=== PATIENT | female | born 1970 | race Caucasian/White ===

== ENCOUNTER 2019-08-03 13:57 | Outpatient (RCR) | payer OTHER, SELFPAY | END 2019-08-03 23:59 | disposition home or self-care (01) | LOC: ANHAUDIO 13:57 | PROVIDERS: PCP Family Medicine; Visit Provider Family Medicine | DX: Z46.1 Encounter for fitting and adjustment of hearing aid (principal) | CPT/HCPCS: 99199 ==

== ENCOUNTER 2019-08-23 11:22 | Outpatient (CLI) | payer OTHER, SELFPAY ==
[2019-08-23 11:44] LABS: Basophils Percent Auto 0.3 % (0.2-1.2); Eosinophils Percent Auto 0.1 % (0-4.4); Hematocrit 44.6 % (37.0-47.0); Hemoglobin 14.6 g/dL (12.0-15.0); Immature Granulocyte Absolute 0.04 K/mm3 (0.00-0.031); Immature Granulocyte Percent A 0.4 % (0-0.5); Lymphocytes Absolute Auto 0.69 K/mm3 (0.9-3.2); Lymphocytes Percent Auto 6.4 % (18.3-44.2); Mean Corpuscular HGB Conc 32.7 g/dl (32-36); Mean Corpuscular Hemoglobin 30.5 pg (26-34); Mean Corpuscular Volume 93.3 fl (80-100); Mean Platelet Volume 9.1 fl (7.4-10.4); Monocytes Absolute Auto 0.7 K/mm3 (0.1-0.6); Monocytes Percent Auto 6.9 % (2.6-8.5); Neutrophils Absolute Auto 9.3 K/mm3 (1.3-6.7); Neutrophils Percent Auto 85.9 % (45.5-73.1); Platelet Count Result 230 k/mm3 (150-375); Red Blood Count 4.78 M/mm3 (4.2-5.4); Red Cell Distribution Width 14.8 % (11.5-14.5); White Blood Count 10.8 K/mm3 (4.5-10.0)
== END 2019-08-23 11:23 | disposition home or self-care (01) ==
LOC: ANHLAB 11:24
PROVIDERS: PCP Family Medicine; Visit Provider Internal Medicine Hematology & Oncology
DX: C34.91 Malignant neoplasm of unspecified part of right bronchus or lung (principal)
CPT/HCPCS: 36415; 85025

== ENCOUNTER 2019-09-04 07:53 | Outpatient (CLI) | payer OTHER, SELFPAY ==
--- NOTE | ~2019-09-04 | PE_ITS ---
EXAMINATION: PET skull to mid thigh DATE: 09/04/2019 12:04 INDICATION: Lung cancer TECHNIQUE: 8.3 mCi of 18-fluorodeoxyglucose (18-FDG) was administered i.v. Low dose computed tomograp hy (CT) images were acquired from the base of the brain to the proximal thighs for attenuation correc tion and anatomic localization. Positron emission tomography (PET) images were acquired after injecti on. Images including fused PET/CT images were reconstructed in axial, coronal, and sagittal planes. A utomatic exposure control is employed as a dose reduction technique. COMPARISON: Pet/CT dated 05/31/2019 FINDINGS: Head/neck: There is increased activity in the palatine tonsils without CT correlate, likely physiologic. There i s new left supraclavicular soft tissue with hypermetabolic activity, out of with metastatic disease. Chest: There is emphysema. There is persistent consolidation in the right upper lobe paramediastinal locatio n with maximum SUV of 5.3 compared with 6.1 on prior examination. There is stable anterior mediastina l and precarinal lymphadenopathy with maximum SUV of 6.5 and 4.2 respectively. Moderate pericardial e ffusion. No significant change to mixed airspace and groundglass opacifications. Segment right lower lobe without increased activity, likely radiation fibrosis. There is atherosclerosis. Abdomen/pelvis/proximal thighs: There is intrahepatic gas peripherally in the left hepatic lobe, suspicious for portal venous gas. Th e gallbladder is identified. There is a new focus of hypermetabolic activity in the liver adjacent to the gallbladder fossa with maximum SUV of 4.9. There are calcified granulomas of the spleen. The wallace creas adrenal glands and left kidney are unremarkable. There is atrophy of the right kidney. There is a small nonobstructing right renal stone. There is atherosclerosis and ectasia of the infrarenal abd ominal aorta measuring 2.8 cm maximum AP dimension. No bowel obstruction. Bones/Soft tissues: There is new mild FDG uptake in the left sacrum with poorly circumscribed sclerosis, compatible with metastatic disease. IMPRESSION: 1. New focal soft tissue left supraclavicular area with hypermetabolic activity, maximum SUV is 3.4, suspicious for metastatic disease. There is new sclerosis of the left sacrum with increased FDG uptak e, also consistent with metastatic disease. New focus of FDG uptake in the liver adjacent to the falc iform ligament without definitive associated mass. If the patient has had recent instrumentation/proc edure, this could represent inflammatory change, although developing metastatic disease is not exclud ed. 2: New area of peripheral gas in the left hepatic lobe. If there is history of recent instrumentation , this could represent biliary gas, although this is peripheral to expected location of pneumobilia. Portal venous gas should be considered. This finding is nonspecific, although can be associated with ischemic bowel. 3: Stable right upper lobe soft tissue with increased activity which may represent radiation pneumoni tis or metastatic disease. 4: Stable mediastinal soft tissue with increased activity, consistent with metastatic disease and/or radiation therapy sequela. Dr. Milian discussed with Dr. Odell Swanson MD at 09/04/2019 12:58 CDT. Reviewed, dictated and finalized at location A. IMPRESSION: 1. New focal soft tissue left supraclavicular area with hypermetabolic activity , maximum SUV is 3.4, suspicious for metastatic disease. There is new sclerosis of the left sacrum with increased FDG uptake, also consistent with metastatic disease. New focus of FDG uptake in the liver adjacent to the falciform ligamen t without definitive associated mass. If the patient has had recent i
[2019-09-04 08:33] LABS: Glucose Point of Care 112 (65-105)
== END 2019-09-04 07:54 | disposition home or self-care (01) ==
LOC: ANHIMG 07:58
PROVIDERS: PCP Family Medicine; Visit Provider Radiology Radiation Oncology
DX: C34.11 Malignant neoplasm of upper lobe, right bronchus or lung (principal); R91.8 Other nonspecific abnormal finding of lung field
CPT/HCPCS: 78815; A9552

== ENCOUNTER 2019-09-13 10:11 | Outpatient (CLI) | payer OTHER, SELFPAY ==
--- NOTE | ~2019-09-13 | US_ITS ---
EXAMINATION: US biopsy lymph node DATE: 09/13/2019 11:15 INDICATION: Left supraclavicular lymphadenopathy. TECHNIQUE: The procedure including the risks, benefits, and alternatives was discussed with the patie nt. Risks discussed included bleeding and infection. The patient understood the risks and agreed to p roceed. The skin overlying the left supraclavicular region was prepped and draped in usual sterile fa shion. Anesthetic was administered with 1% lidocaine subcutaneously. An 18 gauge core biopsy needle was then used to obtain 3 core biopsy specimens under continuous sonographic guidance. The entry sit e was cleaned and dressed. There were no immediate complications. FINDINGS: Ultrasound images demonstrate the needle in a 10 x 9 x 8 mm left supraclavicular lymph node that demonstrated increased activity on the recent PET/CT.. IMPRESSION: 1. Ultrasound-guided core needle biopsy of a left supraclavicular lymph node. Reviewed, dictated and finalized at location A.
== END 2019-09-13 10:12 | disposition home or self-care (01) ==
LOC: ANHIMG 10:15
PROVIDERS: PCP Family Medicine; Visit Provider Radiology Radiation Oncology
DX: C34.11 Malignant neoplasm of upper lobe, right bronchus or lung (principal)
CPT/HCPCS: 38505; 76942; 88305; 88313; 88342

== ENCOUNTER 2019-10-05 01:02 | Day surgery (SDC) | payer OTHER, SELFPAY ==
[2019-10-03 15:56] VITALS: BMI 18.1
--- NOTE | ~2019-10-05 | XR_ITS ---
XR Abdomen PIC DATE: 10/05/2019 13:26 INDICATION: Port-A-Cath insertion. A femoral approach TECHNIQUE: 3 portable AP views of abdomen and pelvis COMPARISON: None FINDINGS: A Port-A-Cath apparatus overlies the right lower quadrant, superimposing the right iliac ericka ne on these frontal views. The catheter overlies the right common femoral, external and common iliac veins, inferior vena cava, terminating over the inferior vena cava at the T11 level. Abdominal aortic and iliac arterial calcifications are noted. IMPRESSION: Right femoral vein Port-A-Cath in inferior vena cava Reviewed, dictated and finalized at [facility]. Reviewed, dictated and finalized at location A.
--- NOTE | ~2019-10-05 | XR_ITS ---
EXAMINATION: XR fl guide central line place DATE: 10/05/2019 13:46 INDICATION: Femoral port catheter placement TECHNIQUE: Single fluoroscopic spot image of the right hemipelvis was obtained during procedure perfo rmed by Dr. Hein. Radiologist was not present for the imaging or procedure. The amount of fluorosc opy time used during this procedure was 0.3 minutes. COMPARISON: None. FINDINGS: The reservoir for a subtle venous port catheter projects over the right innominate bone. Po rtions of the catheter including the distal tip are collimated beyond the [id number]. A segment of the catheter can be seen extending cephalad along the course of the right external and common iliac veins. IMPRESSION: 1. Fluoroscopy utilized during right femoral vein central venous port catheter placement. Reviewed, dictated and finalized at location A.
[2019-10-05 10:00] VITALS: BP 134/103; PULSE 110; RESP 20; TEMP 37.2; O2SAT 98
[2019-10-05] MEDS: LACTATED RINGERS 1,000 ML 30 ML IV CONT (10:18)
[2019-10-05 10:36] LABS: Partial Thromboplastin Time 28.8 SECONDS (22.3-36.8); Prothrombin Time 12.6 Seconds (11.1-14.7)
--- NOTE | 2019-10-05 10:45 | PM.HPGS ---
History of Present Illness History of Present Illness Consent: Risks, benefits, and alternatives of Placement of Port-A-Cath have been discussed and questions answered. Patient agrees to proceed with procedure. Chief complaint: Lung Ca Narrative: Earlene Velez is a 49 year old female, who in the past has had non-small cell lung cancer (2015). She recently had a left supraclavicular lymph node biopsy done in early September 2019 showing recurrent tumor. Patient was initially diagnosed with stage IIIA non-small cell lung carcinoma with mediastinal and hilar lymphadenopathy, PD L1 mutation negative, and ALK gene rearrangements negative. First diagnosed October of 2015. Previous treatment includes concurrent chemo & radiation with Taxol, carboplatin in December of 2015. She also receive some stereotactic radiation to the anterior mediastinum in January of 2017. PET scan done on September 03 showed soft tissue mass in the left supraclavicular area as well as sclerosis of an area in the left sacrum with increased uptake consistent with possible metastatic disease in the bone there. Because of this she is planning to proceed with further chemotherapy with . She therefore presents today for placement of a Port-A-Cath. We will plan to place on the right side. Review of Systems Constitutional: Constitutional: Reports no additional constitutional complaints, Reports fatigue and Denies malaise Eyes: Eyes: Denies change in vision and Denies loss of vision ENT: Reports Normal hearing present, Denies change in voice, Denies dizziness, Denies hoarseness and Denies sore throat Cardiovascular: Cardiovascular: Denies chest pain, Denies leg edema and Denies dyspnea Respiratory: Respiratory: Denies cough, Denies dyspnea and Denies wheezing Gastrointestinal: Gastrointestinal: Denies hematochezia, Denies change in bowel habits and Denies heartburn Genitourinary: Genitourinary: Denies urinary frequency and Denies urinary incontinence Neurologic: Reports Normal hearing present, Denies confusion, Denies dizziness, Denies loss of vision, Denies memory loss and Denies seizure-like activity Psychiatric: Psychiatric: Denies confusion, Denies depression and Denies memory loss Endocrine: Endocrine: Denies cold intolerance and Reports fatigue Hematologic/Lymphatic: Hematologic/Lymphatic: Denies easy bleeding and Denies easy bruising Allergic/Immunologic: Allergic/Immunologic: Denies wheezing PMFSH Past Medical History Medical History (Updated 10/05/19 @ 11:01 by El Temple MD) COPD (chronic obstructive pulmonary disease) CVA (cerebral vascular accident) no residual symptoms HTN (hypertension), benign (Unknown) Metastatic lung cancer (metastasis from lung to other site) (~09/2019) Meds Home Medications and Allergies Home Medications Medication Instructions Recorded Confirmed Type albuterol sulfate 1 - 2 inh INHALATION PRN PRN 06/05/19 10/05/19 History alprazolam 0.25 mg PO BID 06/05/19 10/05/19 History amlodipine 5 mg PO DAILY 06/05/19 10/05/19 History cholecalciferol (vitamin D3) 2,000 unit PO DAILY 06/05/19 10/05/19 History multivitamin 1 cap PO DAILY 06/05/19 10/05/19 History oxycodone 5 mg PO Q6H PRN 06/05/19 10/05/19 History esomeprazole magnesium [Nexium 20 mg PO DAILY 10/03/19 10/05/19 History 24HR] fluoxetine 10 mg PO DAILY 10/03/19 10/05/19 History temazepam 7.5 mg PO HS 10/03/19 10/05/19 History umeclidinium [Incruse Ellipta] 1 inh INHALATION DAILY 10/03/19 10/05/19 History Allergies Allergy/AdvReac Type Severity Reaction Status Date / Time Penicillins Allergy Unknown RASH Verified 10/05/19 10:31 Vital Signs Vital Signs - 24 hr 10/05/19 10:00 Temperature 37.2 C Pulse Rate 110 H Respiratory Rate 20 Blood Pressure 134/103 H Pulse Oximetry 98 Exam Const: General: cooperative, healthy appearing, no acute distress, well developed and alert; No confusion Nutritional Appearance: well nourished Orientation/co
--- NOTE | 2019-10-05 11:01 | WPDANESEPPF ---
Anes - Initial Pre Proc Eval Procedure: Operation Date: 10/05/19 11:30 Proposed Procedures p Insertion Lloyd Cath - Neno Hein MD Date/Time: 10/05/19 11:01 Surgeon: Neno Hein MD Pre Op Diagnosis: Lung Ca Patient Data Age: 49 Gender: F Height: 5 ft 6 in Weight: 50.5 kg Last Vital Signs Temp 98.9 F 10/05/19 10:00 Pulse 110 H 10/05/19 10:00 Resp 20 10/05/19 10:00 BP 134/103 H 10/05/19 10:00 Pulse Ox 98 10/05/19 10:00 Allergies Allergy/AdvReac Type Severity Reaction Status Date / Time Penicillins Allergy Unknown RASH Verified 10/05/19 10:31 Home Medications Medication Instructions Recorded Confirmed Type albuterol sulfate 1 - 2 inh INHALATION PRN PRN 06/05/19 10/05/19 History alprazolam 0.25 mg PO BID 06/05/19 10/05/19 History amlodipine 5 mg PO DAILY 06/05/19 10/05/19 History cholecalciferol (vitamin D3) 2,000 unit PO DAILY 06/05/19 10/05/19 History multivitamin 1 cap PO DAILY 06/05/19 10/05/19 History oxycodone 5 mg PO Q6H PRN 06/05/19 10/05/19 History esomeprazole magnesium [Nexium 20 mg PO DAILY 10/03/19 10/05/19 History 24HR] fluoxetine 10 mg PO DAILY 10/03/19 10/05/19 History temazepam 7.5 mg PO HS 10/03/19 10/05/19 History umeclidinium [Incruse Ellipta] 1 inh INHALATION DAILY 10/03/19 10/05/19 History Laboratory Tests 10/05/19 10:06 PT 12.6 Seconds Seconds (11.1-14.7) INR 1.0 APTT 28.8 SECONDS SECONDS (22.3-36.8) Patient hx anesthesia problems: none Family hx anesthesia problems: none PMFSH Past Medical History Medical History (Updated 10/05/19 @ 11:01 by El Temple MD) COPD (chronic obstructive pulmonary disease) CVA (cerebral vascular accident) no residual symptoms HTN (hypertension), benign (Unknown) Metastatic lung cancer (metastasis from lung to other site) (~09/2019) Anes - Eval Final PreProcedure Day of Procedure 10/05/19 11:01 Patient weight: normal Heart: regular rate and rhythm Lungs: clear to auscultation Airway: Mallampati scale class III Neurological: alert and oriented Last oral intake: >/= 8 hours ASA classification: III Emergent: no Anesthetic plan: proceed Anesthesia type and monitoring: general GIVS and standard monitoring Informed Consent: The patient's anesthetic plan and its attendant risks and benefits were discussed with the patient/family/POA. Questions were solicited and answers provided to the satisfaction of the patient/family/POA.
[2019-10-05] MEDS: CLINDAMYCIN 900 MG/NS 50 ML 900 MG/50 ML PIGGYBACK 50 MG IVPB (12:10)
[2019-10-05] MEDS: BUPIVACAINE/EPINEPHRINE 0.5% 30 ML VIAL INFILTRATE (12:59)
[2019-10-05] MEDS: HEPARIN SODIUM 5,000 UNITS/ML VIAL 5000 UNITS IRRIGATION (13:00)
[2019-10-05 13:28] VITALS: BP 126/82; PULSE 87; RESP 16; TEMP 35.8; O2SAT 100
--- NOTE | 2019-10-05 13:34 | PM.PROC ---
Procedure Note - Detailed Date of procedure: 10/05/19 Pre-op diagnosis: Lung Ca Procedure performed: placement of Port-A-Cath ( in right femoral vein). Description of procedure: Patient was seen and marked in the pre-op area prior to coming to the OR. Patient was brought to the operating room. She was placed supine on the operating table and general IV sedation was induced. The nurse inventory assistant provided oxygen and IV sedation. Patient's lower abdomen right groin and upper right thigh were prepped and draped while in the supine position. Following this the appropriate time-out was completed confirming procedure and patient. Placement of Port-A-Cath in the right groin. We confirmed that all the needed equipment was present in the room. Following this the ultrasound probe was draped into the field and using the probe we carefully identified the femoral artery and vein on the right groin. I marked the skin directly over the Rt. femoral vein. Following this, using the continuous ultrasound guidance, a 22 gauge seeker needle and then the Cook needle was placed through the skin into this vein. I then was able to draw back good dark blood. Once this was completed a guidewire using a J-tip was advanced through the needle and then the needle and the guidewire cover were withdrawn. C-arm fluoroscopy was used to confirm that the guidewire was nicely in the venous system. Once this was confirmed with the C - arm I preceded on by making the pocket for the port on the patient's anterior right lower abdomen approximately 2 centimeters just medial to the anterior superior iliac spine on the right . Local anesthetic was infiltrated into the skin where there was a transverse incision marked out. Incision was made and we made a pocket superior to the incision with just a little dissection inferior. The Smart port was tried in the pocket and seemed to fit well. Fairly large subcutaneous vein was identified and a small rent was made as I made the pocket. This therefore was divided and sutured off on each side with a 3 0 Vicryl suture. Following this the catheter which had been placed on a tunneling device was tunneled from the port site on the anterior right lower abdomen to the right groin area where a small incision had been made with an #11 blade knife. Then the catheter was pulled through so that we would have 35 centimeters to put into the central venous system once the dilation took place. Following this we placed the dilator and sheath over the guidewire in the right femoral vein and carefully dilated the tract into the central venous system (inferior vena cava). The guidewire and dilator were then removed, carefully covering the end of the sheath to prevent air embolus. The end of the catheter at the tip was checked was then inserted into the sheath and into the groin. Catheter was advanced 35 cm at the skin level and I then carefully pulled the 2 arms of the tear-away sheath away as the medical assistant ob gyn held the catheter in position with a DeBakey forceps. Following this we checked the position of the catheter with C-arm fluoroscopy confirming that the tip seemed to be in the inferior vena cava high in the upper abdomen. I felt that it was in good position and so the rest of the catheter was left pulled down toward the feet into the port site. Good dark blood was able to be aspirated from the catheter. We then measured to the appropriate position to cut the catheter to attach it to the port stem. Then the connector sealing device for the catheter port was placed onto the catheter and then the catheter cut to the appropriate length and inserted onto the stem of the port. Then the connector was advanced onto the stem over the catheter sealing it to the port. A single 3- 0 Prolene suture was also used during this to suture the connector to the port and to the underlying fascia and musculature. Following this at one other site the port was sutured to the underlying fascia and
[2019-10-05 13:53] VITALS: BP 121/96; PULSE 88; RESP 20; O2SAT 100
--- NOTE | 2019-10-05 14:03 | SUR.PHASEI ---
1345- PT AWAKE AND STATED THAT LT EYE WAS BURNING AND DRY. ASKED PT NOT TO RUB EYE. 1400- PT UP TO RECLINER AND SHE PLACED SALINE DROPS IN BOTH EYES. PT STATED SHE HAS DRY EYES. LT EYE RED, BUT PT CAN KEEP OPEN AND SHE STATED THAT SHE HAS A HX OF DRY EYES.
--- NOTE | 2019-10-05 14:12 | SUR.PHASEI ---
1410- PT STATED LT EYE WAS HURTING AND DRY. PT WILL NOT OPEN. SPOKE WITH DR. MARSHALL AND HE ORDERED EYE DROPS. PT MOTHER UPDATED.
[2019-10-05] MEDS: PROPARACAINE HCL 0.5% 15 ML OPHTH SOLN 1 DROP EACH EYE (15:17)
== END 2019-10-05 14:28 | disposition home or self-care (01) ==
PROVIDERS: PCP Family Medicine; Visit Provider Surgery
PROC: (CPT 36561; principal; 2019-10-05 11:30)
DX: C34.92 Malignant neoplasm of unspecified part of left bronchus or lung (principal); I10 Essential (primary) hypertension; J44.9 Chronic obstructive pulmonary disease, unspecified; Z86.73 Personal history of transient ischemic attack (TIA), and cerebral infarction without residual deficits
CPT/HCPCS: 36561; 36415; 77001; 85610; 85730; A9270; C1788; J1100; J1644; J2250; J2370; J2405; J2704; J3010; J7030; J7120

== ENCOUNTER 2020-01-04 08:53 | Outpatient (CLI) | payer OTHER, SELFPAY ==
--- NOTE | ~2020-01-04 | CT_ITS ---
EXAMINATION: CT chest abdomen pelvis w con DATE: 01/04/2020 09:48 INDICATION: Adenocarcinoma of the lung TECHNIQUE: Transaxial computed tomographic images of the chest, abdomen, and pelvis were obtained aft er the administration of 100 cc of Omnipaque 350 intravenous contrast. The dose-length product (DLP) was 299.03 mGy-cm. Automated exposure control and iterative reconstruction technique were employed. COMPARISON: 08/25/2019, 05/31/2019, 05/21/2019 FINDINGS: CHEST CT: The previously biopsied left supraclavicular lymph node demonstrating metastatic lung adenocarcinoma is unchanged in size. There is moderate emphysema. Scarring and paramediastinal fibrosis in the right upper lobe are stable. There appears to be slight decrease in precarinal soft tissue density. A prev ascular lymph node remains normal in short axis diameter but has decreased in size. The heart size is normal. A moderate-sized pericardial effusion is stable. There is no pleural effusion or pneumothora x. 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 ABDOMEN/PELVIS CT: A Port-A-Cath of the right groin ends with its tip in the intrahepatic portion of the inferior vena c mikaela. Transient hepatic attenuation difference is noted in the left hepatic lobe. There is a 5 mm hypo attenuating lesion of the right hepatic lobe not definitely seen on the comparison examinations (imag e 107). Punctate calcifications in an otherwise normal spleen likely represent healed granulomatous d isease. The pancreas, gallbladder, and adrenal glands are normal. There is mild atrophy of the right kidney compared to the left. No pathologically enlarged abdominal or pelvic lymph nodes are identifie d. There is no free intraperitoneal gas or evidence of bowel obstruction. IMPRESSION: 1. Apparent slight decrease in size of mediastinal lymphadenopathy. 2. 5 mm lesion of the right hepatic lobe not definitely identified on comparison examinations. Attent ion on follow-up is recommended. Reviewed, dictated and finalized at location A. IMPRESSION: 1. Apparent slight decrease in size of mediastinal lymphadenopathy. 2. 5 mm lesion of the right hepatic lobe not definitely identified on compariso n examinations. Attention on follow-up is recommended.
== END 2020-01-04 08:54 | disposition home or self-care (01) ==
LOC: ANHIMG 08:56
PROVIDERS: PCP Family Medicine; Visit Provider Internal Medicine Hematology & Oncology
DX: C34.90 Malignant neoplasm of unspecified part of unspecified bronchus or lung (principal)
CPT/HCPCS: 71260; 74177; Q9967

== ENCOUNTER 2020-01-10 11:46 | Outpatient (CLI) | payer OTHER, SELFPAY ==
[2020-01-10 12:08] LABS: Basophils Percent Auto 0.4 % (0.2-1.2); Hematocrit 31.6 % (37.0-47.0); Hemoglobin 10.2 g/dL (12.0-15.0); Immature Granulocyte Absolute 0.01 K/mm3 (0.00-0.031); Immature Granulocyte Percent A 0.4 % (0-0.5); Lymphocytes Absolute Auto 0.65 K/mm3 (0.9-3.2); Lymphocytes Percent Auto 22.9 % (18.3-44.2); Mean Corpuscular HGB Conc 32.3 g/dl (32-36); Mean Corpuscular Hemoglobin 33.4 pg (26-34); Mean Corpuscular Volume 103.6 fl (80-100); Mean Platelet Volume 9.7 fl (7.4-10.4); Monocytes Absolute Auto 0.4 K/mm3 (0.1-0.6); Monocytes Percent Auto 14.1 % (2.6-8.5); Neutrophils Absolute Auto 1.8 K/mm3 (1.3-6.7); Neutrophils Percent Auto 62.2 % (45.5-73.1); Platelet Count Result 132 k/mm3 (150-375); Red Blood Count 3.05 M/mm3 (4.2-5.4); Red Cell Distribution Width 23.4 % (11.5-14.5); White Blood Count 2.8 K/mm3 (4.5-10.0)
[2020-01-10 12:33] LABS: Blood Urea Nitrogen 13 mg/dL (8-26); Carbon Dioxide 26 mmol/L (22-30); Chloride 100 mmol/L (98-109); Estimated Glomerular Filt Rate 40; Glucose 91 mg/dL (70-105); Sodium 140 mmol/L (138-146)
[2020-01-10 16:36] LABS: Alanine Aminotransferase 73 U/L (4-35); Albumin Level 4.4 g/dL (3.5-5.1); Alkaline Phosphatase 94 U/L (38-126); Anion Gap 14.3 mmol/L (7-16); Aspartate Amino Transferase 56 U/L (14-36); Bilirubin,Total 0.5 mg/dL (0.2-1.3); Blood Urea Nitrogen 15 mg/dL (7-17); Calcium 9.7 mg/dL (8.4-10.2); Carbon Dioxide 29 mmol/L (22-30); Chloride 100 mmol/L (98-107); Estimated Glomerular Filt Rate 48; Glucose 92 mg/dL (65-105); Potassium 4.3 mmol/L (3.4-5.0); Sodium 139 mmol/L (137-145)
== END 2020-01-10 11:47 | disposition home or self-care (01) ==
PROVIDERS: PCP Family Medicine; Visit Provider Internal Medicine Hematology & Oncology
DX: C34.90 Malignant neoplasm of unspecified part of unspecified bronchus or lung (principal)
CPT/HCPCS: 36415; 80048; 80053; 84443; 85025

== ENCOUNTER 2020-03-31 10:13 | Outpatient (CLI) | payer OTHER, SELFPAY ==
--- NOTE | ~2020-03-31 | MM_ITS ---
EXAMINATION: MM screening jama BI w shyam HISTORY: Screening mammogram TECHNIQUE: Craniocaudal and mediolateral oblique 3-D tomosynthesis images were obtained and synthetic 2-D images were generated. CAD analysis was submitted and interpreted. COMPARISON: 03/30/2019, 03/23/2018 bilateral digital screening mammogram examinations BREAST PARENCHYMAL COMPOSITION: There are scattered areas of fibroglandular density. FINDINGS: There is no evidence of suspicious mass, calcification, or architectural distortion to sugg est malignancy in either breast. There has been no suspicious interval change. IMPRESSION: 1. No mammographic evidence of malignancy. 2. Recommend routine screening mammography in one year. BI-RADS Category 1: Negative Reviewed, dictated and finalized at location A.
== END 2020-03-31 10:14 | disposition home or self-care (01) ==
LOC: ANHIMG 10:15
PROVIDERS: PCP Family Medicine; Visit Provider Internal Medicine Hematology & Oncology
DX: Z12.31 Encounter for screening mammogram for malignant neoplasm of breast (principal)
CPT/HCPCS: 77063; 77067

== ENCOUNTER 2020-04-10 12:24 | Outpatient (CLI) | payer OTHER, SELFPAY ==
--- NOTE | ~2020-04-10 | CT_ITS ---
EXAMINATION: CT chest abdomen pelvis w con DATE: 04/10/2020 13:44 INDICATION: Restaging of adenocarcinoma of the lung TECHNIQUE: Computed tomography (CT) of the chest, abdomen, and pelvis was performed with 100 cc Omnip aque 350 intravenous contrast. Automated exposure control and iterative reconstruction technique were employed. Exam dose: 288.17 mGy-cm total exam DLP. COMPARISON: 12/31/2019 CT chest abdomen pelvis FINDINGS: CHEST CT: Normal size and homogeneous enhancement of thyroid gland. No interval hilar or mediastinal mass lesion or lymphadenopathy. Normal heart size. Mild pericardial effusion again noted. No thoracic aortic aneurysm or dissection. 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 Emphysematous changes of the lungs. Stable scarring and paramediastinal fibrosis in the right upper lobe. Stable discoid scarring in the left lower lobe. ABDOMEN/PELVIS CT: Right Port-A-Cath catheter through the right common femoral vein is again noted in the intrahepatic p ortion of the inferior vena cava, unchanged in position since 01/04/2020. Again noted is hyperenhancement of the left hepatic lobe as noted on 01/04/2020. Stable indeterminate hypoattenuating lesion of the right hepatic lobe (image 112) is stable since 12/12. The gallbladder is present. No bile duct dilatation. No pancreatic mass lesion, calcification or duct al dilatation. Spleen is within upper limits of normal size, measuring up to 12.6 cm height. There are multiple calc ified splenic granulomas. Normal morphology of the adrenal glands. There is diffuse atrophy of the right kidney several right renal cysts are noted, measuring up to 9 m m approximate maximal dimension. No right renal mass lesion. No hydroureteronephrosis. Up to 2.8 cm fusiform dilatation of the infrarenal abdominal aortic aneurysm, stable since 05/02/2020 . No intraperitoneal or retroperitoneal or pelvic mass lesion or adenopathy or ascites. The urinary bladder is relatively evacuated. Status post hysterectomy. No bowel obstruction or intraperitoneal free air. IMPRESSION: No significant change since 01/04/2020 Reviewed, dictated and finalized at [facility]. Reviewed, dictated and finalized at location A.
== END 2020-04-10 12:25 | disposition home or self-care (01) ==
PROVIDERS: PCP Family Medicine; Visit Provider Internal Medicine Hematology & Oncology
DX: C34.90 Malignant neoplasm of unspecified part of unspecified bronchus or lung (principal)
CPT/HCPCS: 71260; 74177; Q9967

== ENCOUNTER 2020-07-25 09:08 | Outpatient (CLI) | payer OTHER, SELFPAY ==
--- NOTE | ~2020-07-25 | CT_ITS ---
EXAMINATION: CT chest abdomen pelvis w con DATE: 07/25/2020 09:41 INDICATION: Adenocarcinoma of the lung TECHNIQUE: Transaxial computed tomographic images of the chest, abdomen, and pelvis were obtained aft er the administration of 100 cc of Omnipaque 350 intravenous contrast. The dose-length product (DLP) was 331.19 mGy-cm. Automated exposure control and iterative reconstruction technique were employed. COMPARISON: 04/10/2020, 05/21/2019 FINDINGS: CHEST CT: There is moderate emphysema. A stable left supraclavicular lymph node is again seen, previously demon strated to be metastatic lung adenocarcinoma. Paramediastinal scarring and fibrosis in the right uppe r lobe are stable. Right paratracheal and precarinal soft tissue density is unchanged. The heart size is normal. Conclusion of the left brachiocephalic vein and proximal superior vena cava are again not ed with multiple chest wall collaterals visualized. There is no pleural effusion or pneumothorax. The re is a stable moderate-sized pericardial effusion. ABDOMEN/PELVIS CT: There is transient hepatic attenuation difference in the left hepatic lobe. A Port-A-Cath of the righ t groin ends with its tip in the intrahepatic portion of the inferior vena cava. Punctate calcificati ons in an otherwise normal spleen likely represent healed granulomatous disease. The pancreas, gallbl adder, and adrenal glands are normal. There is mild atrophy of the right kidney. The left kidney is u nremarkable. No pathologically enlarged abdominal or pelvic lymph nodes are identified. There is no f ree intraperitoneal gas or evidence of bowel obstruction. There is calcified atherosclerosis of the a maggie and many of the other arteries. IMPRESSION: 1. Stable thoracic findings, consistent with radiation fibrosis, treated malignancy, and stable metas tatic disease. Reviewed, dictated and finalized at location A. ESHOW WORKER IMPRESSION: 1. Stable thoracic findings, consistent with radiation fibrosis, treated malign deena, and stable metastatic disease.
== END 2020-07-25 09:09 | disposition home or self-care (01) ==
LOC: ANHIMG 09:13
PROVIDERS: PCP Family Medicine; Visit Provider Internal Medicine Hematology & Oncology
DX: C34.90 Malignant neoplasm of unspecified part of unspecified bronchus or lung (principal)
CPT/HCPCS: 71260; 74177; Q9967

== ENCOUNTER 2020-09-26 08:56 | Outpatient (CLI) | payer OTHER, SELFPAY ==
--- NOTE | ~2020-09-26 | CT_ITS ---
EXAMINATION: CT chest abdomen pelvis w con DATE: 09/26/2020 09:32 INDICATION: Adenocarcinoma of the lung TECHNIQUE: Transaxial computed tomographic images of the chest, abdomen, and pelvis were obtained aft er the administration of 100 cc of Omnipaque 350 intravenous contrast. The dose-length product (DLP) was 415.04 mGy-cm. Automated exposure control and iterative reconstruction technique were employed. COMPARISON: 07/25/2020 FINDINGS: CHEST CT: Paramediastinal scarring and fibrosis in the right upper lobe are stable. There is also a stable righ t hilar/paratracheal and subcarinal soft tissue mass. A stable metastatic left supraclavicular lymph node is again seen. There is moderate emphysema. No new lung masses or nodules are identified. 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 The heart size is normal. A moderate-sized pericardial effusion per sists without significant change. ABDOMEN/PELVIS CT: Chronic transient hepatic attenuation difference is present in the left hepatic lobe. The right groin Port-A-Cath ends with its tip in the intrahepatic inferior vena cava. Punctate calcifications in an otherwise normal spleen likely represent healed granulomatous disease. The pancreas, gallbladder, and adrenal glands are unremarkable. There is atrophy of the right kidney. The left kidney is normal. No pathologically enlarged abdominal or pelvic lymph nodes are identified. There is no free intraperito ana gas or evidence of bowel obstruction. A moderate volume of colonic stool is present. IMPRESSION: 1. Stable findings of pneumothorax as detailed above, consistent with treated malignancy and stable m etastatic disease. Reviewed, dictated and finalized at location B. IMPRESSION: 1. Stable findings of pneumothorax as detailed above, consistent with treated m alignancy and stable metastatic disease.
== END 2020-09-26 08:57 | disposition home or self-care (01) ==
LOC: ANHIMG 08:57
PROVIDERS: PCP Family Medicine; Visit Provider Internal Medicine Hematology & Oncology
DX: C34.90 Malignant neoplasm of unspecified part of unspecified bronchus or lung (principal)
CPT/HCPCS: 71260; 74177; Q9967

== ENCOUNTER 2020-12-18 10:07 | Outpatient (CLI) | payer OTHER, SELFPAY ==
--- NOTE | ~2020-12-18 | CT_ITS ---
EXAMINATION: CT diagnostic chest w con EXAM DATE: 12/18/2020 10:49 INDICATION: Lung cancer. TECHNIQUE: Spiral CT of the chest following intravenous injection of 75 mL Omnipaque 350. Axial, cor onal and sagittal images of the chest were reviewed. Coronal maximum intensity pixel images of chest reviewed. The dose-length product (DLP) for this examination was 124.51 mGy-cm. The exposure was t ailored according to patient size (auto mA exposure control), and iterative reconstruction (ASIR) was used as additional dose reduction technique. Comparison is made to prior examination from 09/26/2020, 07/25/2020, 01/04/2020. FINDINGS: There is infiltrative right hilar malignancy surrounding the right mainstem bronchus, righ t hilar structures. Obscuration of the mediastinal fat planes infiltration, appearance consistent wit h treated hilar and mediastinal lymphadenopathy but there is overall slight interval increase in thic kness of the soft tissue density surrounding the main stem bronchus and hilar structures, mild progre ssion of malignancy or radiation related change. There is now small nodule of soft tissue in the righ t mainstem bronchus measuring 6 mm which could be from malignancy invasion. There is no discrete enla rged mediastinal, hilar or axillary lymphadenopathy. No central pulmonary emboli. There is mild to m oderate emphysema and hyperinflation. Chronic right hemidiaphragm elevation, could be paralyzed. Contrast injected in patients left arm extends down thoracic wall collaterals, and then back up the I VC indicating complete occlusion of the SVC. There is a catheter tip in the upper aspect of the IVC. There is 2.5 mm right superior calyceal stone. Moderate right-sided renal atrophy. There is small per icardial effusion. There is no pneumothorax. Heart normal in size. There is mild to moderate cor onary arterial calcification, arterial sclerosis. Upper abdomen is unremarkable. No osteoblastic o r osteolytic lesions identified. IMPRESSION: 1. Mild interval increase in right hilar soft tissue and small new nodule of soft tissue density in the mainstem bronchus, could be mild progression of malignancy and treatment related changes. 2. Chronic SVC obstruction. 3. Mild to moderate emphysema and hyperinflation. Reviewed, dictated and finalized at location B. IMPRESSION: 1. Mild interval increase in right hilar soft tissue and small new nodule of s oft tissue density in the mainstem bronchus, could be mild progression of malig zakiya and treatment related changes. 2. Chronic SVC obstruction. 3. Mild to moderate emphysema and hyperinflation.
[2020-12-18 10:41] LABS: Estimated Glomerular Filt Rate 44
== END 2020-12-18 10:08 | disposition home or self-care (01) ==
LOC: ANHIMG 10:16
PROVIDERS: PCP Family Medicine; Visit Provider Internal Medicine Hematology & Oncology
DX: C34.90 Malignant neoplasm of unspecified part of unspecified bronchus or lung (principal); J43.9 Emphysema, unspecified
CPT/HCPCS: 71260; Q9967

== ENCOUNTER 2021-03-09 10:03 | Outpatient (CLI) | payer OTHER, SELFPAY ==
--- NOTE | ~2021-03-09 | CT_ITS ---
EXAMINATION: CT diagnostic chest w con DATE: 03/09/2021 11:11 INDICATION: Adenocarcinoma of the lung TECHNIQUE: Transaxial computed tomographic images of the chest were obtained after the administration of 75 cc of Omnipaque 350 intravenous contrast. The dose-length product (DLP) was 136.52 mGy-cm. Ite rative reconstruction was used. COMPARISON: 12/18/2020 FINDINGS: There is moderate emphysema. Again noted are stable paramediastinal scarring and fibrosis o f the right upper lobe. A right hilar/paratracheal and subcarinal soft tissue mass is also stable. No new masses or nodules are identified. There is no pleural effusion or pneumothorax. Chronic occlusio n of the left brachiocephalic vein and proximal superior vena cava results in multiple chest wall col laterals. The heart size is normal. A moderate-sized chronic pericardial effusion is noted. There is chronic transient hepatic attenuation difference in the left hepatic lobe. IMPRESSION: 1. Stable findings of treated malignancy in the right lung and mediastinum. Reviewed, dictated and finalized at location A.
== END 2021-03-09 10:04 | disposition home or self-care (01) ==
LOC: ANHIMG 10:08
PROVIDERS: PCP Family Medicine; Visit Provider Internal Medicine Hematology & Oncology
DX: C34.90 Malignant neoplasm of unspecified part of unspecified bronchus or lung (principal); R91.8 Other nonspecific abnormal finding of lung field
CPT/HCPCS: 71260; Q9967

== ENCOUNTER 2021-03-20 08:55 | Outpatient (CLI) | payer OTHER, SELFPAY ==
[2021-03-20 15:25] LABS: Rheumatoid Factor < 8.6 IU/ML (<12)
== END 2021-03-20 08:56 | disposition home or self-care (01) ==
LOC: ANHLAB 08:56
PROVIDERS: PCP Family Medicine; Visit Provider Family Medicine
DX: M25.50 Pain in unspecified joint (principal)
CPT/HCPCS: 36415; 84550; 86430

== ENCOUNTER 2021-04-13 14:37 | Outpatient (CLI) | payer OTHER, SELFPAY ==
--- NOTE | ~2021-04-13 | MM_ITS ---
EXAMINATION: MM screening jama BI w shyam HISTORY: Screening TECHNIQUE: Craniocaudal and mediolateral oblique 3-D tomosynthesis images were obtained and synthetic 2-D images were generated. CAD analysis was submitted and interpreted. COMPARISON: Comparison to multiple prior studies sequentially, with oldest reviewed study dated 03/13. BREAST PARENCHYMAL COMPOSITION: There are scattered areas of fibroglandular density. FINDINGS: There is a developing asymmetry in the subareolar location of the left breast. The right br east is stable without evidence for malignancy. IMPRESSION: 1. Developing left breast asymmetry. 2. Additional mammographic views and possible breast ultrasound are recommended. BI-RADS Category 0: Incomplete: Needs additional imaging evaluation. Reviewed, dictated and finalized at location A. IMPRESSION: 1. Developing left breast asymmetry. 2. Additional mammographic views and possible breast ultrasound are recommended . BI-RADS Category 0: Incomplete: Needs additional imaging evaluation.
== END 2021-04-13 14:38 | disposition home or self-care (01) ==
LOC: ANHIMG 14:40
PROVIDERS: PCP Family Medicine; Visit Provider Internal Medicine Hematology & Oncology
DX: Z12.31 Encounter for screening mammogram for malignant neoplasm of breast (principal); R92.8 Other abnormal and inconclusive findings on diagnostic imaging of breast
CPT/HCPCS: 77063; 77067

== ENCOUNTER 2021-06-11 11:22 | Outpatient (CLI) | payer OTHER, SELFPAY ==
--- NOTE | ~2021-06-11 | MMUS_ITS ---
EXAMINATION: MM diagnostic jama LT w shyam, US breast LT complete HISTORY: Follow-up left breast asymmetries TECHNIQUE: Additional 3-D tomosynthesis images of the left breast were performed and synthetic 2-D im ages were generated. CAD analysis was submitted and interpreted. High resolution complete left breast ultrasound was performed. COMPARISON: 04/13/2021 BREAST PARENCHYMAL COMPOSITION: Breast composed of scattered areas of fibroglandular density FINDINGS: MAMMOGRAPHIC FINDINGS: There are no suspicious masses, calcifications or architectural distortion in the left breast to sugg est malignancy. Subareolar asymmetry compresses with spot views. ULTRASOUND: Complete bilateral US of all 4 quadrants of the left breast and retroareolar region was reviewed. Nor mal heterogeneous echotexture without focal solid or cystic mass. IMPRESSION: 1. No evidence for malignancy in the left breast. 2. Routine yearly screening mammogram and regular clinical breast examination are recommended. BI-RADS Category 1: Negative Reviewed, dictated and finalized at location A. ERTY MANAGEMENT ASSISTANT IMPRESSION: 1. No evidence for malignancy in the left breast. 2. Routine yearly screening mammogram and regular clinical breast examination a re recommended. BI-RADS Category 1: Negative
--- NOTE | ~2021-06-11 | CT_ITS ---
EXAMINATION:CT diagnostic chest w con DATE: 06/11/2021 12:35 INDICATION: Adenocarcinoma of lung. TECHNIQUE: Computed tomography (CT) of the chest was performed with 75 mL Omnipaque 350 intravenous c ontrast. Automated exposure control and iterative reconstruction technique were employed. The dose-le ngth product (DLP) was 146.93 mGy-cm. COMPARISON: Chest CT 03/09/2021, 09/23/2015 FINDINGS: There is mild emphysema. There are airspace opacities with volume loss and architectural di stortion in perihilar right upper lobe and superior segment right lower lobe, consistent with radiati on fibrosis. There is mild atelectasis in the inferior lungs. No pleural effusion. The heart size is normal. There is a small pericardial effusion. There is chronic total occlusion of superior vena cava . There is chronic soft tissue attenuation in the mediastinal fat with calcified right paratracheal l ymph nodes, consistent with treated malignancy and treatment changes. Calcified mediastinal lymph nod es are consistent with old granulomatous disease. There is early enhancement in left hepatic lobe due to chest wall venous shunting. There is moderate atrophy of right kidney. There is a catheter tip in intrahepatic inferior vena cava. There is severe degenerative disc disease at T6-T7 and mild spondyl osis at other levels. IMPRESSION: 1. Chronic treatment changes and treated malignancy in the right perihilar region and mediastinum. 2. 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 3. Mild emphysema. 4. Chronic small pericardial effusion. Reviewed, dictated and finalized at location B. R MANAGER IMPRESSION: 1. Chronic treatment changes and treated malignancy in the right perihilar patrice on and mediastinum. 2. 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 3. Mild emphysema. 4. Chronic small pericardial effusion.
== END 2021-06-11 11:23 | disposition home or self-care (01) ==
PROVIDERS: PCP Family Medicine; Visit Provider Internal Medicine Hematology & Oncology
DX: R92.8 Other abnormal and inconclusive findings on diagnostic imaging of breast (principal); J43.9 Emphysema, unspecified; I31.3 Pericardial effusion (noninflammatory)
CPT/HCPCS: 71260; 76641; 77061; 77065; G0279; Q9967

== ENCOUNTER 2021-10-19 08:09 | Outpatient (CLI) | payer OTHER, SELFPAY ==
--- NOTE | ~2021-10-19 | CT_ITS ---
EXAMINATION: CT diagnostic chest w con DATE: 10/19/2021 08:38 INDICATION: Adenocarcinoma of the lung TECHNIQUE: Transaxial computed tomographic images of the chest were obtained after the administration of 75 cc of Omnipaque 300 intravenous contrast. The dose-length product (DLP) was 127.53 mGy-cm. Ite rative reconstruction was used. COMPARISON: 06/11/2021 FINDINGS: There is mild emphysema. There are stable airspace opacities of the perihilar right upper l obe. Again noted is occlusion of the superior vena cava with multiple chest wall collaterals. There a re stable right paratracheal and subcarinal lymph nodes. The heart size is normal. There is a chronic moderate-sized pericardial effusion. Chronic transient hepatic attenuation difference is noted in th e left hepatic lobe. There is atrophy of the right kidney. A catheter tip seen in the intrahepatic in ferior vena cava. IMPRESSION: 1. Stable changes of treated malignancy in the right perihilar upper lobe and mediastinum. Reviewed, dictated and finalized at location A. IMPRESSION: 1. Stable changes of treated malignancy in the right perihilar upper lobe and m ediastinum.
== END 2021-10-19 08:10 | disposition home or self-care (01) ==
PROVIDERS: PCP Family Medicine; Visit Provider Internal Medicine Hematology & Oncology
DX: C34.90 Malignant neoplasm of unspecified part of unspecified bronchus or lung (principal)
CPT/HCPCS: 71260; Q9967

== ENCOUNTER 2022-01-15 08:03 | Outpatient (CLI) | payer OTHER, SELFPAY ==
--- NOTE | ~2022-01-15 | CT_ITS ---
EXAMINATION: CT diagnostic chest w con DATE: 01/15/2022 08:36 INDICATION: Adenocarcinoma of the lung; restaging TECHNIQUE: Computed tomography (CT) of the chest was performed with 75 CC Omnipaque 350 intravenous c ontrast. Automated exposure control and iterative reconstruction technique were employed. Exam dose: 123.31 mGy-cm total exam DLP. COMPARISON: 10/29/2021 CTA chest FINDINGS: Moderately prominent emphysematous changes of the lungs. Chronic mild right hilar soft tissue thickening and surrounding reticulation and discoid scarring sin ce 10/19/2021, consistent with stable treated malignancy. Mild chronic discoid scarring at the base of the left and right lower lobes. No interval pulmonary infiltrate or consolidation or pulmonary mass lesion is detected. No new hilar or mediastinal mass lesion is noted. Stable mild to moderate pericardial effusion since 10/19/2021. Prominent left hepatic contrast enhancement is again noted, previously reported on 10/19/2021 as chroni c transient hepatic attenuation difference. Right renal atrophy is again noted. Inferior vena cava catheter again noted. IMPRESSION: No significant change since 10/29/2021 Reviewed, dictated and finalized at Location A. Reviewed, dictated and finalized at location B.
[2022-01-15 08:31] LABS: Estimated Glomerular Filt Rate 59
== END 2022-01-15 08:04 | disposition home or self-care (01) ==
LOC: ANHIMG 08:05
PROVIDERS: PCP Family Medicine; Visit Provider Internal Medicine Hematology & Oncology
DX: C34.90 Malignant neoplasm of unspecified part of unspecified bronchus or lung (principal)
CPT/HCPCS: 71260; Q9967

== ENCOUNTER 2022-04-12 14:40 | Outpatient (CLI) | payer OTHER, SELFPAY ==
--- NOTE | ~2022-04-12 | CT_ITS ---
EXAMINATION: CT brain w con DATE: 04/12/2022 15:33 INDICATION: Adenocarcinoma of the lung TECHNIQUE: Computed tomography (CT) of the head was performed with 100 CC Omnipaque 350 intravenous c ontrast. The mA was adjusted according to patient size. Iterative reconstruction technique was employ ed. Exam dose: 529.67 mGy-cm total exam DLP. COMPARISON: None FINDINGS: No intracranial mass lesion or hemorrhage or cerebrovascular accident is detected normal gr ay-white matter differentiation.. No midline shift or mass effect. Normal ventricular size. Bilateral carotid siphon internal artery calcifications. No subdural or epidural hematoma is detected. No fracture or bone destruction of the cranial vault. Included mastoid air cells and paranasal sinuse s are normally developed and aerated. IMPRESSION: Cerebral atherosclerosis No acute intracranial abnormality Reviewed, dictated and finalized at Location A. Reviewed, dictated and finalized at location A.
[2022-04-12 15:20] LABS: Estimated Glomerular Filt Rate 53
== END 2022-04-12 14:41 | disposition home or self-care (01) ==
PROVIDERS: PCP Family Medicine; Visit Provider Internal Medicine Hematology & Oncology
DX: C34.90 Malignant neoplasm of unspecified part of unspecified bronchus or lung (principal); I63.9 Cerebral infarction, unspecified
CPT/HCPCS: 36415; 70460; 80047; 80053; 84443; 85025; 96413; J9271; Q9967

== ENCOUNTER 2022-05-15 13:48 | Outpatient (CLI) | payer OTHER, SELFPAY ==
--- NOTE | ~2022-05-15 | MM_ITS ---
EXAMINATION: MM screening [facility] BI w shyam HISTORY: Screening mammogram TECHNIQUE: Craniocaudal and mediolateral oblique 3-D tomosynthesis images were obtained and synthetic 2-D images were generated. CAD analysis was submitted and interpreted. COMPARISON: 06/11/2021, 04/13/2021, 03/31/2020 BREAST PARENCHYMAL COMPOSITION: There are scattered areas of fibroglandular density. FINDINGS: No suspicious mass, calcification, or architectural distortion are identified in either gold ast to suggest malignancy. There has been no suspicious interval change. IMPRESSION: 1. No mammographic evidence of malignancy. 2. Recommend routine screening mammography in one year. BI-RADS Category 1: Negative Reviewed, dictated and finalized at location A. MAKER
== END 2022-05-15 13:49 | disposition home or self-care (01) ==
PROVIDERS: PCP Family Medicine; Visit Provider Internal Medicine Hematology & Oncology
DX: Z12.31 Encounter for screening mammogram for malignant neoplasm of breast (principal)
CPT/HCPCS: 77063; 77067

== ENCOUNTER 2022-05-17 13:32 | Outpatient (CLI) | payer OTHER, SELFPAY ==
--- NOTE | ~2022-05-17 | CT_ITS ---
EXAMINATION: CT diagnostic chest w con DATE: 05/17/2022 14:10 INDICATION: Adenocarcinoma of the lung TECHNIQUE: Computed tomography (CT) of the chest was performed with 75 cc Omnipaque 350 intravenous c ontrast. The dose-length product was 153.84 mGy-cm. Automated exposure control and iterative reconstr uction technique were employed. COMPARISON: CT dated 01/15/2022 and 10/19/2021 FINDINGS: Persistent small pericardial effusion. No significant pleural effusion. Stable mediastinal lymphadenopathy containing coarse calcifications. There is emphysema. Stable focal consolidation in t he right upper lobe/perihilar location, consistent with treated malignancy. No new pulmonary nodules or masses. No pneumothorax. Partially visualized infrarenal abdominal aortic aneurysm measuring 3.1 c m. No significant change to appearance of enhancement of the left hepatic lobe allowing for differenc es of technique, most likely benign transient hepatic attenuation difference. There are calcified gra nulomas of the spleen. The right kidney is atrophic. There is moderate thoracic spondylosis. Mild sup erior endplate compression deformity of T6 which appears chronic. There is a catheter in the IVC. IMPRESSION: 1. Stable appearance to focal consolidation of the right upper lobe and perihilar locations with volu me loss, compatible with treated malignancy. 2: Stable mediastinal soft tissue containing coarse calcifications, also likely related to prior [place] atment. Reviewed, dictated and finalized at location A. ING SHED WORKER IMPRESSION: 1. Stable appearance to focal consolidation of the right upper lobe and perihil ar locations with volume loss, compatible with treated malignancy. 2: Stable mediastinal soft tissue containing coarse calcifications, also likel y related to prior treatment.
== END 2022-05-17 13:33 | disposition home or self-care (01) ==
PROVIDERS: PCP Family Medicine; Visit Provider Internal Medicine Hematology & Oncology
DX: C34.90 Malignant neoplasm of unspecified part of unspecified bronchus or lung (principal)
CPT/HCPCS: 71260; Q9967

== ENCOUNTER 2022-09-20 09:30 | Outpatient (CLI) | payer OTHER, SELFPAY ==
--- NOTE | ~2022-09-20 | CT_ITS ---
Clinical Indication: Adenocarcinoma of lung CT Scan of the Chest with Contrast: Technique: Contiguous sections were acquired throughout the chest after intravenous administration of 75 cc of Omnipaque 350. Dose reduction technique was used on this scan by utilizing automated exposu re control and iterative reconstruction technique. The dose-length product (DLP) was 144.22 mGy-cm. COMPARISON: 05/17/2022 Findings: There is stable soft tissue thickening in the anterior mediastinum and along the ascending aorta, wit h coarse calcifications. There is no filling defect in the pulmonary arterial tree to suggest pulmona ry embolus. There is no evidence of aortic dissection or aneurysm. There are atherosclerotic calcific ations of the aorta. No pleural effusions. Small pericardial effusion present. Stable probable postradiation change in the medial right upper lobe.. Moderate emphysema noted. Images through the upper abdomen reveal atrophic right kidney. Impression: Stable probable post radiation or possibly postoperative changes in the anterior mediastinum and medi al right upper lobe region. No change from prior exam. Stable small pericardial effusion. Moderate emphysema. Reviewed, dictated and finalized at location . Impression: Stable probable post radiation or possibly postoperative changes in the anterio r mediastinum and medial right upper lobe region. No change from prior exam. Stable small pericardial effusion. Moderate emphysema.
== END 2022-09-20 09:31 | disposition home or self-care (01) ==
PROVIDERS: PCP Family Medicine; Visit Provider Internal Medicine Hematology & Oncology
DX: C34.90 Malignant neoplasm of unspecified part of unspecified bronchus or lung (principal); J43.9 Emphysema, unspecified
CPT/HCPCS: 71260; Q9967

== ENCOUNTER 2023-01-10 08:06 | Outpatient (CLI) | payer OTHER, SELFPAY ==
--- NOTE | ~2023-01-10 | CT_ITS ---
Clinical Indication: Adenocarcinoma right lung CT Scan of the Chest with Contrast: Technique: Contiguous sections were acquired throughout the chest after intravenous administration of 75 cc of Omnipaque 350. Dose reduction technique was used on this scan by utilizing automated exposu re control and iterative reconstruction technique. The dose-length product (DLP) was 130.09 mGy-cm. COMPARISON: 09/20/2022 Findings: There is stable soft tissue thickening with coarse calcifications along the upper right mediastinum. There is no filling defect in the pulmonary arterial tree to suggest pulmonary embolus. There is no e vidence of aortic dissection or aneurysm. Small pericardial effusion present. There is apparent oblit eration of the SVC. No pleural effusions. There is chronic probable postradiation change in the right upper lobe perihilar region/right suprahi lar region, with focal central bronchiectatic change in this region. Images through the upper abdomen reveal extensive increased enhancement in the left hepatic lobe. Impression: Stable chronic presumed postradiation changes in the right upper lobe in the right supra hilar/perihi lar region and in the upper right mediastinum. Stable small pericardial effusion. Hyperenhancement in the left hepatic lobe, which could be related to altered blood flow mechanics due to underlying obliteration of the SVC. Reviewed, dictated and finalized at location M. Impression: Stable chronic presumed postradiation changes in the right upper lobe in the ri ght supra hilar/perihilar region and in the upper right mediastinum. Stable small pericardial effusion. Hyperenhancement in the left hepatic lobe, which could be related to altered bl ood flow mechanics due to underlying obliteration of the SVC.
== END 2023-01-10 08:07 | disposition home or self-care (01) ==
PROVIDERS: PCP Family Medicine; Visit Provider Internal Medicine Hematology & Oncology
DX: C34.91 Malignant neoplasm of unspecified part of right bronchus or lung (principal); I31.39 Other pericardial effusion (noninflammatory)
CPT/HCPCS: 71260; Q9967

== ENCOUNTER 2023-05-13 08:40 | Outpatient (CLI) | payer OTHER, SELFPAY ==
--- NOTE | ~2023-05-13 | CT_ITS ---
Clinical Indication: Adenocarcinoma right lung CT Scan of the Chest with Contrast: Technique: Contiguous sections were acquired throughout the chest after intravenous administration of 75 cc of Omnipaque 350. Dose reduction technique was used on this scan by utilizing automated exposu re control and iterative reconstruction technique. The dose-length product (DLP) was 146.16 mGy-cm. COMPARISON: 01/10/2023 Findings: There is stable soft tissue thickening with coarse calcifications along the right paratracheal stripe , with associated obliteration of the SVC. No aortic aneurysm dissection. No pulmonary embolus eviden t. Small pericardial effusion similar to prior exam. No pleural effusions. Stable probable postradiation change in the right perihilar region/right upper lobe centrally. No new pulmonary abnormality seen. Images through the upper abdomen reveal partially imaged infrarenal abdominal aortic aneurysm measuri ng up to at least 3.4 cm in diameter. Hyperenhancement of the left hepatic lobe is unchanged, compati ble with sequelae of obliterated SVC.. Impression: No change from prior exam. Stable postradiation change in the right perihilar region. Stable soft tissue thickening with coarse complication on the right paratracheal stripe with oblitera tion of the SVC. Stable small pericardial effusion. Partially imaged abdominal aortic aneurysm measures up to 3.4 cm in diameter. Reviewed, dictated and finalized at [facility]. CAL MALPRACTICE PARALEGAL Impression: No change from prior exam. Stable postradiation change in the right perihilar region. Stable soft tissue thickening with coarse complication on the right paratrachea l stripe with obliteration of the SVC. Stable small pericardial effusion. Partially imaged abdominal aortic aneurysm measures up to 3.4 cm in diameter.
[2023-05-13 09:14] LABS: Estimated Glomerular Filt Rate 47
== END 2023-05-13 08:41 | disposition home or self-care (01) ==
PROVIDERS: PCP Family Medicine; Visit Provider Internal Medicine Hematology & Oncology
DX: C34.91 Malignant neoplasm of unspecified part of right bronchus or lung (principal); J90 Pleural effusion, not elsewhere classified
CPT/HCPCS: 71260; Q9967

== ENCOUNTER 2023-07-20 13:49 | Outpatient (CLI) | payer OTHER, SELFPAY ==
--- NOTE | ~2023-07-20 | MM_ITS ---
EXAMINATION: MM screening jama BI w shyam HISTORY: Screening mammogram TECHNIQUE: Craniocaudal and mediolateral oblique 3-D tomosynthesis images were obtained and synthetic 2-D images were generated. CAD analysis was submitted and interpreted. COMPARISON: 06/01/2022 bilateral screening mammogram 06/11/2021 diagnostic left mammogram and complete left breast ultrasound 04/13/2021 bilateral screening mammogram BREAST PARENCHYMAL COMPOSITION: There are scattered areas of fibroglandular density. FINDINGS: There is no evidence of suspicious mass, calcification, or architectural distortion to sugg est malignancy in either breast. There has been no suspicious interval change. IMPRESSION: 1. No mammographic evidence of malignancy. 2. Recommend routine screening mammography in one year. BI-RADS Category 1: Negative Reviewed, dictated and finalized at location A. TERSINKER
== END 2023-07-20 13:50 | disposition home or self-care (01) ==
LOC: ANHIMG 13:52
PROVIDERS: PCP Family Medicine; Visit Provider Internal Medicine Hematology & Oncology
DX: Z12.31 Encounter for screening mammogram for malignant neoplasm of breast (principal)
CPT/HCPCS: 77063; 77067

== ENCOUNTER 2023-11-08 07:21 | Outpatient (CLI) | payer OTHER, SELFPAY ==
--- NOTE | ~2023-11-08 | CT_ITS ---
Clinical Indication: Lymphadenopathy CT Scan of the Chest with Contrast: Technique: Contiguous sections were acquired throughout the chest after intravenous administration of 75 cc of Omnipaque 350. Dose reduction technique was used on this scan by utilizing automated exposu re control and iterative reconstruction technique. The dose-length product (DLP) was 136.65 mGy-cm. COMPARISON: 05/13/2023 Findings: There is stable soft tissue thickening with coarse calcifications in the right paratracheal stripe re gion/anterior right mediastinum, extending towards the right hilum. No discrete, enlarged lymph nodes are identified. No aortic aneurysm or dissection. No central pulmonary embolus seen. Small pericardial effusion present. No pleural effusions. There is moderate upper lobe emphysema. No suspicious pulmonary nodule seen. Images through the upper abdomen reveal atrophic right kidney. Impression: No acute abnormality seen. No evidence for recurrent disease. 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 Small pericardial effusion. Moderate upper lobe emphysema. Reviewed, dictated and finalized at location . Impression: No acute abnormality seen. No evidence for recurrent disease. 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 Small pericardial effusion. Moderate upper lobe emphysema.
== END 2023-11-08 07:22 | disposition home or self-care (01) ==
PROVIDERS: PCP Family Medicine; Visit Provider Nurse Practitioner Family
DX: C34.90 Malignant neoplasm of unspecified part of unspecified bronchus or lung (principal); I31.39 Other pericardial effusion (noninflammatory); J43.9 Emphysema, unspecified
CPT/HCPCS: 71260; Q9967

== ENCOUNTER 2024-03-06 09:58 | Outpatient (CLI) | payer OTHER, SELFPAY ==
--- NOTE | ~2024-03-06 | CT_ITS ---
Clinical Indication: Adenocarcinoma CT Scan of the Chest with Contrast: Technique: Contiguous sections were acquired throughout the chest after intravenous administration of 75 cc of Omnipaque 350. Dose reduction technique was used on this scan by utilizing automated exposu re control and iterative reconstruction technique. The dose-length product (DLP) was 140.02 mGy-cm. COMPARISON: 11/08/2023 Findings: Stable soft tissue thickening with coarse calcifications in the anterior mediastinum and along the ri ght paratracheal stripe, with obliteration of the SVC. No pleural effusions. Small pericardial effusion. Stable irregular consolidation with air bronchograms at the right hilum extending to the medial supra hilar region, compatible with post region/post therapy change. There is moderate emphysema. No suspic ious pulmonary nodule seen. Images through the upper abdomen reveal area of hyperenhancement involving the central portion of the left hepatic lobe. Possible partially imaged infrarenal abdominal aortic aneurysm. Probably subacute transverse fracture of the sternum, with mild progressive healing since prior exam. Impression: No significant interval change. Stable post radiation/postoperative change in the right upper lobe/ri ght suprahilar region. 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 Moderate emphysema. Small pericardial effusion. Subacute healing sternal fracture. Reviewed, dictated and finalized at location . Impression: No significant interval change. Stable post radiation/postoperative change in t he right upper lobe/right suprahilar region. Stable posttreatment changes in the mediastinum with obliteration of the SVC, a nd associated hyperenhancement in the central left hepatic lobe. Moderate emphysema. Small pericardial effusion. Subacute healing sternal fracture.
== END 2024-03-06 09:59 | disposition home or self-care (01) ==
LOC: ANHIMG 09:58
PROVIDERS: PCP Family Medicine; Visit Provider Internal Medicine Hematology & Oncology
DX: C34.90 Malignant neoplasm of unspecified part of unspecified bronchus or lung (principal); J43.9 Emphysema, unspecified; I31.39 Other pericardial effusion (noninflammatory); S22.20XD Unspecified fracture of sternum, subsequent encounter for fracture with routine healing; X58.XXXD Exposure to other specified factors, subsequent encounter
CPT/HCPCS: 71260; Q9967

== ENCOUNTER 2024-09-24 08:48 | Outpatient (CLI) | payer OTHER, SELFPAY ==
--- OUTSIDE RECORDS SUMMARY | 2024-09-24 09:17 | XMS_ITS | Clinical Summary ---
Author Organization [facility] Address [address] [place] [id number] Care Team Providers Care Fishing Hand Name Role Phone Unavailable Primary Care Provider Unavailabl e Social History Tobacco Use Types Packs/Day Years Used Date Smoking Tobacco: Never Assessed Comments Unknown Sex and Gender Information Value Date Recorded Sex Assigned at Not on file Legal Sex Female 4:31 PM CDT Gender Identity Not on file Sexual Orientation Not on file Plan of Treatment Health Maintenance Due Date Last Done Comments Cervical Cancer Screening Pa p Smear (Age 30 to 64) Every 3 Years 1971 Colorectal Cancer Screening Colonoscopy (10 Years) 1971 Annual Physical 1974 Hepatitis C 1989 DTaP, Tdap and Td Vaccines ( 1 - Tdap) 1990 Hepatitis B Vaccines (1 of 3 - 19+ 3-dose series) 1990 Cervical Cancer Screening Pa p with HPV Testing (Age 30 to 64) Every 5 Years 2001 Cervical Cancer Screening with HPV 2001 Mammogram Screening 2011 Zoster Vaccines (1 of 2) 2021 COVID-19 Vaccine (2023-2 5 season) 2024 Meningococcal B Vaccine Aged Out No l onger eligible based on patient's age to complete this topic Meningococcal Vaccine Aged Out No america gibson eligible based on patient's age to complete this topic Pneumococcal Vaccine: Pediat rics (0 to 5 Years) and At-Risk Patients (6 to 49 Years) Aged Out No longer eligible b ased on patient's age to complete this topic RSV Immunizations Under 20 Months Aged Out No longer eligible based on patient's age to complete this topic
--- OUTSIDE RECORDS SUMMARY | 2024-09-24 09:17 | XMS_ITS ---
Author Organization [facility] Address [address] [place] [address] Phone Care Team Providers Care Picture Frame Maker Name Role Phone Atif Bernstein MD Unavailable [phone] Meche Coburn MD Unavailable [phone] Kathryn Daniel MD Unavailable Unavail able Arjun Musa Unavailable James Roach MD Primary Care Provider [phone] Bay Yin MD Unavailable Dax Cervantes MD Unavailable Ramon Fitzgerald MD Unavailable [phone] [place] Chronic Condition Monitoring Status:Enrolled (Active) Start date:05/25/2023 Enrollment date:05/26/2023 Current support & services provided:Hypertension Management Related social drivers of health:Intimate Partner Violence, Social Connections, Alcohol Use, Tobacco Use, Financial Resource Strain,Depression, Stress, Physical Activity, Food Insecurity, Transportation Needs, Housing Stability, Utilities Continued Care and Services Coordination
--- OUTSIDE RECORDS SUMMARY | 2024-09-24 09:17 | XMS_ITS | Encounter Summary ---
Author Organization [facility] Address [address] [place] [address] Care Team Providers Care Butcher All Round Name Role Phone James Roach MD Primary Care Provider [phone] Encounter Details Date Type Department Care Team (Late st Contact Info) Description 12/08/2016 Chart Note [facility] Radiation Therapy [address] [place] [address] [place] [address] [place] [address] Social History Tobacco Use Types Packs/Day Years Used Date Smoking Tobacco: Former Cigarettes Q uit: 06/13/2016 Comments:Nicotine Patch Alcohol Use Standard Drinks/Week Comments No 0 (1 standard drink = 0.6 oz pur e alcohol) Comments No Sex and Gender Information Value Date Recorded Sex Assigned at Not on file Legal Sex Female 3:52 PM CDT Gender Identity Not on file Sexual Orientation Not on file documented as of this encounter Plan of Treatment Not on file documented as of this encounter Visit Diagnoses Not on filedocumented in this encounter Care Teams Butcher All Round Relationship Specialty Start Date End Date James Roach MD [address] [address] PCP - General Family Practice 09/14/21 documented as of this encounter
--- OUTSIDE RECORDS SUMMARY | 2024-09-24 09:18 | XMS_ITS | Clinical Summary ---
Author Organization [facility] Address [address] [place] [address] Phone Care Team Providers Care Radioactivity Technician Name Role Phone Atif Bernstein MD Unavailable [phone] Meche Coburn MD Unavailable [phone] Kathryn Daniel MD Unavailable Unavail able Arjun Musa Unavailable James Roach MD Primary Care Provider [phone] Bay Yin MD Unavailable Dax Cervantes MD Unavailable Ramon Fitzgerald MD Unavailable [phone] Allergies Active Allergy Reactions Criticality Noted Date Comments Penicillin G Rash,Nausea,Vomiting Low 09/22/2015 As a child Penicillins Unknown 10/05/2016 Medications Blood Pressure Monitoring (BLOOD PRESSURE CUFF) MiscIndications: Essential hypertension 1 Units by Does not apply route daily. 1 Each 05/16/20 17 Active Turmeric 500 MG Tablet Take by mouth. Active Severiano, Zingiber officinalis, (SEVERIANO ROOT PO) Take by mouth. Active ALPRAZolam (XANAX) 0.25 MG Tablet TAKE 1 TABLET BY MOUTH EVERY DAY 30 Tab 06/29/19 20 Active oxyCODONE (ROXICODONE) 5 MG Tablet Take 1 Tab by mouth every 4 hours as needed (pain). 100 Tab 06/30/19 20 Active temazepam (RESTORIL) 15 MG Capsule TAKE 1 CAPSULE BY MOUTH AT BEDTIME NEEDED FOR SLEEP 30 Cap 11/09/19 20 Active Ventolin HFA 108 (90 Base) MCG/ACT Aerosol Solution take 1-2 Puffs by inhalation every 4 hours as needed for Wheezing. 18 g 1 06/04/20 21 Active folic acid (FOLVITE) 1 MG Tablet TAKE 1 TABLET(1 MG) BY MOUTH DAILY 06/17/19 22 Active BIOTIN FORTE PO Take 1,000 mcg by mouth. Active Ferrous Sulfate (IRON PO) Take 65 mg by mouth daily. Active Milk Thistle 175 MG Tablet Take by mouth. Active Ascorbic Acid (VITAMIN C PO) Take 500 mg by mouth. Active Blevins 3 1000 MG Capsule Take by mouth. Active DANDELION PO Take 1,040 mg by mouth. Active B Complex Vitamins (B COMPLEX PO) Take 100 mg by mouth. Active hydroxychloroqui ne (PLAQUENIL) 200 MG Tablet Take 200 mg by mouth 2 times daily. Active naloxone HCl (Narcan) 4 MG/0.1ML Liquid 1 [place] by Nasal route as needed for Opioid Reversal. Administer in one nostril for symptoms of overdose (severe sleepiness, breathing problems, not responsive). Call 911. May repeat 1 spray in alternate nostril in 2-3 minutes if needed. 2 Each 09/07/19 24 Active allopurinol (ZYLOPRIM) 100 MG Tablet Take 1 Tablet by mouth daily. 90 Tablet 3 11/30/19 24 Active gabapentin (NEURONTIN) 100 MG CapsuleIndicatio ns:Left hand paresthesia TAKE 1 CAPSULE BY MOUTH THREE TIMES DAILY FOR NERVE PAIN 90 Capsule 2 02/27/20 24 Active amLODIPine (NORVASC) 5 MG Tablet TAKE 1 TABLET BY MOUTH DAILY 90 Tablet 2 03/29/20 24 Active Incruse Ellipta 62.5 MCG/ACT AEROSOL POWDER, BREATH ACTIVATED INHALE 1 PUFF BY MOUTH DAILY 30 Each 10 04/01/20 24 Active alendronate (FOSAMAX) 70 MG Tablet Take 1 Tablet by mouth every 7 days. 12 Tablet 3 04/17/20 24 Active levothyroxine (SYNTHROID) 112 MCG Tablet TAKE 1 TABLET BY MOUTH DAILY 90 Tablet 1 09/12/19 25 Active levothyroxine (SYNTHROID) 112 MCG Tablet Take 1 Tablet by mouth daily. 90 Tablet 1 03/16/20 025 Discontinued Active Problems Problem Noted Date Diagnosed Date Hyperlipidemia 06/12/2024 Osteoporosis without current pathological fractu re 01/21/2024 AAA (abdominal aortic aneurysm) without rupture 08/23/2023 Pain in both feet 07/19/2023 Postmenopausal 07/19/2023 Carpal tunnel syndrome, left 04/21/2023 Bilateral hand pain 04/21/2023 Encounter for screening mammogram for breast can cer 04/12/2023 Bilateral carpal tunnel syndrome 04/12/2023 B12 deficiency 01/05/2023 Vitamin D deficiency 01/05/2023 Bilateral hearing loss 12/14/2022 Hypotension 10/21/2022 History of radiation therapy 07/21/2022 Dysphagia 07/21/2022 Neuropathy 07/21/2022 Abnormal Doppler ultrasound of carotid artery Idiopathic gout 11/08/2021 Chronic joint pain 10/06/2021 Bilateral carotid artery stenosis 09/20/2021 COVID-19 07/08/2021 Hypothyroidism 05/26/2021 Chronic prescription benzodiazepine use 04/09/20 19 Hyperglycemia 04/09/2019 Pericardial effusion 01/29/2019 Abnormal echocardiogram 01/29/2019 Abnormal EKG 01/10/2019 Abdominal aortic aneurysm (AAA) without rupture 01/10/2019 Low TSH level 10/30/2018 Left carotid stenosis 09/26/2018 Esophageal dysphagia 09/27/2017 Ptosis of both eyelids 05/27/2017 Insomnia 05/16/2017 Gastroesophageal reflux disease 07/14/2016 SVCO (superior vena cava obstruction) 04/12/2016 Candidiasis, mouth 03/23/2016 Anemia due to chemotherapy 03/23/2016 Pancytopenia 03/12/2016 Candidiasis of mouth 03/12/2016 History of therapeutic radiation 02/04/2016 Overview (02/04/2016): She completed thoracic radiotherapy 01/06/2016. Fatigue 02/02/2016 Chronic pain syndrome 02/02/2016 High blood pressure 02/02/2016 Hypomagnesemia 01/22/2016 Hypokalemia 12/11/2015 Radiation esophagitis 12/04/2015 Non-small cell cancer of right lung 11/19/2015 Cancer Staging:Clinical stage from 11/18/2015:Stage IIIA(T1a, N2, M0, Free text: Bulky paratracheal adenopathy with SVCO) - Signed by Atif Bernstein MD on 11/19/2015 Pathologic: Unsigned Anxiety 11/19/2015 Overview (11/19/2015): Not chronic, began with symptoms associated with her recently diagnosed NSCLC. Mediastinal mass 09/24/2015 Tobacco abuse 09/24/2015 Resolved Problems Problem Noted Date Diagnosed Date Resolved Date Candidiasis of mouth 12/01/2015 016 SVCO (superior vena cava obstruction) 09/24/2015 02/04/2016 Encounters Date Type Department Care Team Description 09/20/2024 2:15 PM CDT Office Visit [facility] [address] [place] [address] Bay Yin MD Hypothyroidism, unspecified type (Primary Dx) Discharge Disposition: Discharged to home or Selfcare 09/20/2024 Travel 09/11/2024 10:00 AM CDT Office Visit [facility] [address] [facility] [place] [address] James Roach MD Osteoporosis without current pathological fracture, unspecified osteoporosis type (Primary Dx); Screening for colon cancer; Encounter for screening mammogram for breast cancer Discharge Disposition: Discharged to home or Selfcare 09/11/2024 Refill [facility] [address] [place] [address] Bay Yin MD Medication Refill 09/11/2024 Travel 09/06/2024 Refill [facility] [address] [facility] [place] [address] James Roach MD Medication Refill 07/18/2024 Results Follow-Up [facility] [address]2 [place] [address] Bay Yin MD from Last 3 Months Immunizations Immunization Administration Dates Next Due Pneumococcal Vaccine Adult - 23 Valent 01/28/201 5 Family History Medical History Relation Name Comments No Known Problems Daughter No Known Problems Father Hypertension Maternal Grandfather Congestive Heart Failure Maternal Grandmother Heart Attack Maternal Grandmother Hypertension Maternal Grandmother Stroke Maternal Grandmother Cancer Mother Cervical Cancer Mother Hypertension Mother Stroke Mother No Known Problems Paternal Grandfather No Known Problems Paternal Grandmother Hypertension Sister No Known Problems Son Relation Name Status Comments Daughter Alive Father Other Maternal Grandfather Maternal Grandmother Mother Alive Paternal Grandfather Paternal Grandmother Sister Alive Son Alive Social History Tobacco Use Types Packs/Day Years Used Date Smoking Tobacco: Former Cigarettes 1 20.1 1 997 - 07/27/2016 Smokeless Tobacco: Never Tobacco Cessation:Counseling Given: Yes Alcohol Use Standard Drinks/Week Comments No 0 (1 standard drink = 0.6 oz pur e alcohol) very rarely [facility] Utilities Answer Date Recorded In the past 12 months has th e electric, gas, oil, or water company threatened to shut off services in your home? No 07/19/2023 Social Connection and Isolation Panel [NHANES] A nswer Date Recorded In a typical week, how many times do you talk on the phone with family, friends, or neighbors? Three times a week 07/19/19 24 How often do you get togethe r with friends or relatives? Patient declined 07/19/2023 How often do you attend [facility] ch or rastafarian services? 1 to 4 times per year 07/19/2023 Do you belong to any clubs o r organizations such as druze groups, unions, fraternal or athletic groups, or school groups? No 07/19/2023 How often do you attend meet ings of the clubs or organizations you belong to? Never 07/19/2023 Are you , , di vorced, , never , or living with a partner? 07/19/2023 AUDIT-C Answer Date Recorded Q1: How often do you have a drink containing alcohol? Never 07/19/2023 Q2: How many drinks containi ng alcohol do you have on a typical day when you are drinking? Patient does not drink Q3: How often do you have si x or more drinks on one occasion? Never 07/19/2023 Overall Financial Resource Strain (CARDIA) Answe r Date Recorded How hard is it for you to pa y for the very basics like food, housing, medical care, and heating? Hard 07/19/2023 PHQ-2 Answer Date Recorded Total Score - Questions 1-9 0 06/2024 [facility] Occupational Stress Questionnaire Answer Date Recorded Do you feel stress - tense, restless, nervous, or anxious, or unable to sleep at night because your mind is troubled all the time - these days? To some extent 07/19/2023 Exercise Vital Sign Answer Date Recorde d On average, how many days pe r week do you engage in moderate to strenuous exercise (like a brisk walk)? Patient declined Minutes of Exercise per Session Not on file 07/19/2023 Hunger Vital Sign Answer Date Recorded Within the past 12 months, y ou worried that your food would run out before you got the money to buy more. Often true 07/19/19 24 Within the past 12 months, t he food you bought just didn't last and you didn't have money to get more. Often true 07/19/2023 PRAPARE - Transportation Answer Date Re corded In the past 12 months, has l ack of transportation kept you from medical appointments or from getting medications? No 11/2023 In the past 12 months, has l ack of transportation kept you from meetings, work, or from getting things needed for daily living? No 07/19/2023 Housing Stability Vital Sign Answer Asa e Recorded In the last 12 months, was t here a time when you were not able to pay the mortgage or rent on time? No 07/19/2023 In the last 12 months, how many places have you lived? 1 07/19/2023 In the last 12 months, was t here a time when you did not have a steady place to sleep or slept in a residential (including now)? No 07/19/2023 Education Answer Date Recorded What is the highest level of school you have completed or the highest degree you have received? 12th grade 10/21/2022 Sexually Active Control Partners Comments Not Currently Male Comments No Sex and Gender Information Value Date Recorded Sex Assigned at Female 01/25/2023 1:42 PM CDT Legal Sex Female 10:54 PM CDT Gender Identity Female 01/25/2023 1:42 PM CDT Sexual Orientation Not on file Occupation Industry Job Start Date Job End Date disabled Not on file Not on file Not on file Last Filed Vital Signs Vital Sign Reading Time Taken Comments Blood Pressure 124/76 09/20/2024 1:53 PM CDT Pulse 61 09/20/2024 1:53 PM CDT Temperature 36.8 C (98.3 F) 09/20/2024 1:53 PM CDT Respiratory Rate 22 09/20/2024 1:53 PM CDT Oxygen Saturation 99% 09/20/2024 1:53 PM CDT Inhaled Oxygen Concentration - - Weight 55.2 kg (121 lb 9.6 oz) 09/20/2024 1:53 P M CDT Height 167.6 cm (5' 6 ) 09/11/2024 9:43 AM CDT Body Mass Index 19.63 09/11/2024 9:43 AM CDT Plan of Treatment Upcoming Encounters Date Type Department Care Team (Late st Contact Info) Description 01/09/2025 10:45 AM CDT Office Visit [facility] - Family Medicine [facility] [address] [place] [address] James Roach MD #2 [facility] [address] [place] [address] 03/22/2025 11:00 AM CDT Office Visit [facility] Medical [facility] - Endocrinology [facility] [address] [place] [address] Bay Yin MD #2 [facility] [address] [place] [address] Health Maintenance Due Date Last Done Comments TdaP Immunization 1971 SARS-COV-2 Immunization (#1) 1976 Hepatitis B Immunization (1 of 3 - 19+ 3-dose series) 1990 Zoster Immunization (1 of 2) 1990 Pneumococcal Immunization (50+ years) (2 of 2 - PCV) 07/10/2015 07/10/2014 Colonoscopy 2016 Immunochemical Fecal Occult Blood 2021 Colorectal Cancer Screening 02/03/2022 Mammogram 05/15/2023 05/15/2022, 03/13, 03/27/2019, Additional history exists Cologuard 02/02/2025 02/02/2022 Influenza Immunization (Season Ended) 2025 Respiratory Syncytial Virus (RSV) Immunization (Adult) (1 - 1-dose 75+ series) 2046 Pap Smear Discontinued 06/25/2011, 10/12, 04/26/2008, Additional history exists Pneumococcal Immunization Combined Discontinued 07/10/2014 Discussion re Starting/Frequency of Mammograms Discontinued 05/15/2022, 03/27/2019, 03/27/2019, Additional history exists Hepatitis C Virus (HCV) Screening Completed 07/26/2022 Cervical Cancer Screening (CCS) Discontinued HPV/Cotest Discontinued Meningococcal Immunization (ACWY) Aged Out No longer eligible based on patient's age to complete this topic Rotavirus Immunization Aged Out No lo nger eligible based on patient's age to complete this topic Medical Devices Implanted Type Area Order Dispatcher Device Identifier Shelf Expiration Date Model / Serial / Lot Clip 235cm Resolution Implanted:Qty: 1 on 08/05/2022 by Dax Cervantes MD at [facility] N/A: Esophagus [employer] 09/21/2023 [id number] / [id number] / [id number] Procedures Procedure Name Priority Date/Time Associated Diagnosis Comments CT - CHEST 07/16/2024 12:00 AM SIDE PIECE COVERER HEPATITIS PANEL ACUTE (AHP) 07/26/2022 12:00 AM SIDE PIECE COVERER ANSELMO SCREENING BILATERAL DIGITAL W CAD W AMMON Routine 05/15/2022 12:00 AM SIDE PIECE COVERER Encounter for screening mammogram for breast cancer COLOGUARD Routine 02/02/2022 7:40 AM CDT Screening for colon cancer PATHOLOGY CYTOLOGY DYE COLORIST FORMULATOR Routine 06/25/2011 from Last 3 Months or Most Recently Relevant to Health Maintenance Results * CT - CHEST (07/16/2024 12:00 AM SIDE PIECE COVERER) 07/16/2024 us Provider Scan IMG CT ORDERABLES Final Result SCAN * HEPATITIS PANEL ACUTE (AHP) (07/26/2022 12:00 AM SIDE PIECE COVERER) 07/26/2022 us Provider Scan HEMATOLOGY ORDERABLES Final Resu lt SCAN * ANSELMO SCREENING BILATERAL DIGITAL W CAD W AMMON (05/15/2022 12:00 AM SIDE PIECE COVERER) Anatomical Region Laterality Modality breast Bilateral Mammography 05/15/2022 James Roach MD IMG MAMMO ORDERABLES Veronika l Result * COLOGUARD (02/02/2022 7:40 AM CDT) Cologuard Negative Negative [facility] Comment: NEGATIVE TEST RESULT. A negative Cologuard result indicates a low likelihood that a colorectal cancer (CRC) or advanced adenoma (adenomatous polyps with more advanced pre-malignant features) is present. The chance that a person with a negative Cologuard test has a colorectal cancer is less than 1 in 1500 (negative predictive value >99.9%) or has an advanced adenoma is less than 5.3% (negative predictive value 94.7%). These data are based on a prospective cross-sectional study of 10,000 individuals at average risk for colorectal cancer who were screened with both Cologuard and colonoscopy. (Shamar Bowen al, N Engl J Med 2014;370(14):2433-7131) The normal value (reference range) for this assay is negative. COLOGUARD RE-SCREENING RECOMMENDATION: Periodic colorectal cancer screening is an important part of preventive healthcare for asymptomatic individuals at average risk for colorectal cancer. Following a negative Cologuard result, the [place] Cancer Society and U.S. Multi-Society Task Force screening guidelines recommend a Cologuard re-screening interval of 3 years. References: [place] Cancer Society Guideline for Colorectal Cancer Screening: https://www.cancer.org/cancer/qjlbb-ajznrf-tfquvv/dnezeuiys-nvjkkvumt-cpbmjzc/ acs-recommendations.html.; Corona KELLY, Gideon CASSIDY, Yulia YipK, Colorectal Cancer Screening: Recommendations for Physicians and Patients from the U.S. Multi-Society Task Force on Colorectal Cancer Screening , Am J Gastroenterology 2017; 112:5039-2555. TEST DESCRIPTION: Composite algorithmic analysis of stool DNA-biomarkers with hemoglobin immunoassay. Quantitative values of individual biomarkers are not reportable and are not associated with individual biomarker result reference ranges. Cologuard is intended for colorectal cancer screening of adults of either sex, 45 years or older, who are at average-risk for colorectal cancer (CRC). Cologuard has been approved for use by the U.S. FDA. The performance of Cologuard was established in a cross sectional study of average-risk adults aged 50-84. Cologuard performance in patients ages 45 to 49 years was estimated by sub-group analysis of near-age groups. Colonoscopies performed for a positive result may find as the most clinically significant lesion: colorectal cancer [4.0%], advanced adenoma (including sessile serrated polyps greater than or equal to 1cm diameter) [20%] or non- advanced adenoma [31%]; or no colorectal neoplasia [45%]. These estimates are derived from a prospective cross-sectional screening study of 10,000 individuals at average risk for colorectal cancer who were screened with both Cologuard and colonoscopy. (Shamar Bowen al, N Engl J Med 2014;370(14):8044-9511.) Cologuard may produce a false negative or false positive result (no colorectal cancer or precancerous polyp present at colonoscopy follow up). A negative Cologuard test result does not guarantee the absence of CRC or advanced adenoma (pre-cancer). The current Cologuard screening interval is every 3 years. ([place] Cancer Society and U.S. Multi-Society Task Force). Cologuard performance data in a 10,000 patient pivotal study using colonoscopy as the reference method can be accessed at the following location: www.[employer]il[employer].Zipari/results. Additional description of the Cologuard test process, warnings and precautions can be found at www.Citysearchrd.com. Stool 02/02/2022 7:40 AM CDT 02/03/2022 5:42 PM CDT James Roach MD BODY FLUIDS & STOOLS JOLENE FISHER Final Result [employer] [address] [place] [address], [place] [phone] [employer] [address] [place] [address] * PATHOLOGY CYTOLOGY DYE COLORIST FORMULATOR (06/25/2011) Specimen of unknown material (specimen) Gisela Garcia MD PATHOLOGY/CYTOLOGY ORDERABLES Fi nal Result from Last 3 Months or Most Recently Relevant to Health Maintenance Insurance MEDICAID [employer] Care Teams Radioactivity Technician Relationship Specialty Start Date End Date James Roach MD [address]2 [facility] [address] [place] [address] PCP - General Family Medicine 05/26/21 Atif Bernstein MD [address] [place] [address] Consulting Physician Radiation Oncology 11/19/15 Meche Coburn MD [address] [facility] [address] [place] [address] Consulting Physician Pulmonary Disease 11/21/15 Kathryn Daniel MD [address] [facility] [address] [place] [address] Obstetrics & Gynecology 05/16/17 Dimple, Arjun Devyn [address] [facility] [address] [place] [phone] Radiation Oncologist Hematology 06/13/18 Bay Yin MD #[address] [phone] Consulting Physician Endocrinology 01/14/22 Dax Cervantes MD #[address] [address] Consulting Physician Colon and Rectal Surgery 07/23/22 Ramon Fitzgerald MD [address]2 [place] [phone] Consulting Physician Neurology 05/13/23
--- OUTSIDE RECORDS SUMMARY | 2024-09-24 09:18 | XMS_ITS | Encounter Summary ---
Author Organization [facility] Address [address] [place] [address] Phone Care Team Providers Care Comic Artist Name Role Phone Atif Bernstein MD Unavailable Meche Coburn MD Unavailable [phone] Kathryn Daniel MD Unavailable Unavail able Arjun Musa Unavailable James Roach MD Primary Care Provider [phone] Bay Yin MD Unavailable Dax Cervantes MD Unavailable Ramon Fitzgerald MD Unavailable [phone] Reason for Visit * Reason Comments Medication Refill Encounter Details Date Type Department Care Team (Late st Contact Info) Description 09/06/2024 [facility]ill [facility] [place] [address] James Roach MD #[address] [address] Medication Refill Social History Tobacco Use Types Packs/Day Years Used Date Smoking Tobacco: Former Cigarettes 1 20.1 1 997 - 07/27/2016 Smokeless Tobacco: Never Alcohol Use Standard Drinks/Week Comments No 0 (1 standard drink = 0.6 oz pur e alcohol) very rarely [facility] Utilities Answer Date Recorded In the past 12 months has th e electric, gas, oil, or water company threatened to shut off services in your home? No 07/19/2023 Social Connection and Isolation Panel [NHANES] A nswer Date Recorded In a typical week, how many times do you talk on the phone with family, friends, or neighbors? Three times a week 07/19/19 How often do you get togethe r with friends or relatives? Patient declined 07/19/2023 How often do you attend chur ch or alevism services? 1 to 4 times per year 07/19/2023 Do you belong to any clubs o r organizations such as orthodox groups, unions, fraternal or athletic groups, or [...] heating? Hard 07/19/2023 PHQ-2 Answer Date Recorded PHQ-2 Score 0 02/16/2019 [facility] ional Health - Occupational Stress Questionnaire Answer [...] place to sleep or slept in a fdc (including now)? No 07/19/2023 Education Answer Date [...] file Not on file Not on file documented as of this encounter Miscellaneous Notes * Telephone Encounter - Jessica Post RN - 09/06/2024 3:07 PM CDT Images from the original note were not included. Allopurinol Dispensed Days Supply Quantity Provider Pharmacy ALLOPURINOL 100MG TABLETS 09/03/2024 90 90 Each James Roach MD [facility] #... ALLOPURINOL 100MG TABLETS 05/30/2024 90 90 Each James Roach MD [facility] #.. documented in this encounter Plan of Treatment Upcoming Encounters Date Type Department Care Team (Late st Contact Info) Description 01/09/2025 10:45 AM CDT Office Visit [facility] - Family Medicine [facility] [place] [address] James Roach MD #2 [facility] [address] [place] [address] 03/22/2025 11:00 AM CDT Office Visit [facility] - Endocrinology - [place] [address] [place] [phone] Bay Yin MD #[address] [phone] documented as of this encounter Visit Diagnoses Not on filedocumented in this encounter Additional Health Concerns Assessment Noted Time PHQ-9 Depression Total Score: 0 04/09/20 19 3:00 PM CDT documented as of this encounter Care Teams Comic Artist Relationship Specialty Start Date End Date James Roach MD #[address] [address] PCP - General Family Medicine 05/26/21 Atif Bernstein MD [address] [place] [address] Consulting Physician Radiation Oncology 11/19/15 Meche Coburn MD [address] [facility] [address] [address] Consulting Physician Pulmonary Disease 11/21/15 Kathryn Daniel MD [address] [facility] [address] [address] Obstetrics & Gynecology 05/16/17 Arjun Musa [address] [facility] [address] [place] [address] Radiation Oncologist Hematology 06/13/18 Bay Yin MD #[address] [address] Consulting Physician Endocrinology 01/14/22 Dax Cervantes MD #[address] [phone] Consulting Physician Colon and Rectal Surgery 07/23/22 Ramon Fitzgerald MD #[address] [place] [address] Consulting Physician Neurology 05/13/23 documented as of this encounter
--- OUTSIDE RECORDS SUMMARY | 2024-09-24 09:18 | XMS_ITS | Encounter Summary ---
Author Organization [facility] Address [address] [place] [address] Phone Care Team Providers Care Rewinder Operator Helper Name Role Phone Bret Koo MD Unavailable Atif Bernstein MD Unavailable [phone] Meche Coburn MD Unavailable [phone] Charlie Beverly DO Unavailable [phone] Tona Castellanos APRN, SOLAR ENERGY SYSTEM INSTALLER Unavailable Kathryn Daniel MD Unavailable Unavail able Arjun Musa Unavailable James Roach MD Primary Care Provider Bay Yin MD Unavailable Dax Cervantes MD Unavailable Ramon Fitzgerald MD Unavailable [phone] Reason for Visit * Reason Comments Medication Refill Encounter Details Date Type Department Care Team (Late st Contact Info) Description 06/07/2023 [facility]ill [facility] - [facility] Medicine - [place] [address] [place] [address] Jordin Heath, REJI, SOLAR ENERGY SYSTEM INSTALLER #[address] [address] Medication Refill Social History Tobacco Use Types Packs/Day Years Used Date Smoking Tobacco: Former Cigarettes 1 20.1 1 997 - 07/27/2016 Smokeless Tobacco: Never Alcohol Use Standard Drinks/Week Comments No 0 (1 standard drink = 0.6 oz pur e alcohol) very rarely PHQ-2 Answer Date Recorded PHQ-2 Score 0 02/16/2019 Education Answer Date Recorded What is the [...] encounter Miscellaneous Notes * Telephone Encounter - Iqra Dela Cruz RN - 06/07/2023 1:57 PM CONSTRUCTION CODE ADMINISTRATOR Medication failed the protocol, provider to review and approve the medication order if appropriate. Requested Prescriptions Pending Prescriptions Disp Refills gabapentin (NEURONTIN) 100 MG Capsule [Pharmacy Med Name: GABAPENTIN 100MG CAPSULES] 90 Capsule 2 Sig: TAKE 1 CAPSULE BY MOUTH THREE TIMES DAILY FOR NERVE PAIN Not Delegated - Anticonvulsants Excluding Benzodiazepines Protocol Failed - 06/07/2023 12:35 PM Failed - This refill cannot be delegated Passed - Visit with relevant provider in past 12 months or upcoming 90 days Recent Visits Date Type Provider Dept 05/19/23 Office Visit Lenny Thornton MD [facility] [place] 04/21/23 Telemedicine James Roach MD [facility] 04/12/23 Office Visit James Roach MD [facility] 03/08/23 Office Visit Jordin Heath APRN, [facility] [place] 01/05/23 Office Visit James Roach MD [facility] 10/21/22 Office Visit James Roach MD [facility] 07/21/22 Office Visit James Roach MD [facility] Showing recent visits within past 365 days and meeting all other requirements Future Appointments Date Type Provider Dept 07/19/23 Appointment James Roach MD [facility] [place] Showing future appointments within next 90 days and meeting all other requirements TRUCTION CODE ADMINISTRATOR documented in this encounter Plan of Treatment Upcoming Encounters Date Type Department Care Team (Late st Contact Info) Description 01/09/2025 10:45 AM CDT Office Visit [facility] Medical Group - Family Medicine - [place] [address] [place] [address] James Roach MD #2 [facility] [address] [place] [address] 03/22/2025 11:00 AM CDT Office Visit [facility] - Endocrinology - [place] [address] [place] [address] Bay Yin MD #[address] [place] [address] documented as of this encounter Visit Diagnoses Diagnosis Left hand paresthesia Disturbance of skin sensation documented in this encounter Additional Health Concerns Assessment Noted Time PHQ-9 Depression Total Score: 0 04/09/20 19 3:00 PM CDT documented as of this encounter Care Teams Rewinder Operator Helper Relationship Specialty Start Date End Date James Roach MD #[address] [address] PCP - General Family Medicine 05/26/21 Bret Koo MD Consulting Physician Oncology 11/18/15 08/13/24 Atif Bernstein MD [address] [place] [address] Consulting Physician Radiation Oncology 11/19/15 Meche Coburn MD [address] [facility] [address] [place] [address] Consulting Physician Pulmonary Disease 11/21/15 Charlie Beverly DO [address] [place] [address] Gastroenterology 03/30/16 08/13/24 Tona Castellanos APRN, SOLAR ENERGY SYSTEM INSTALLER [address] [place] [address] Nurse Practitioner Advanced Practice Nurse 08/03/1608/13/24 Kathryn Daniel MD [address] [place] [address] Obstetrics & Gynecology 05/16/17 Arjun Musa [address] [place] [address] [address] [place] [phone] Radiation Oncologist Hematology 06/13/18 Bay Yin MD #[address] [phone] Consulting Physician Endocrinology 01/14/22 Dax Cervantes MD #[address] [address] Consulting Physician Colon and Rectal Surgery 07/23/22 Ramon Fitzgerald MD #2 [place] [address] Consulting Physician Neurology 05/13/23 documented as of this encounter
--- OUTSIDE RECORDS SUMMARY | 2024-09-24 09:18 | XMS_ITS ---
Author Organization [facility] Address [address] [place] [address] Phone Care Team Providers Care Director Case Management Name Role Phone Atif Bernstein MD Unavailable [phone] Meche Coburn MD Unavailable [phone] Kathryn Daniel MD Unavailable Unavail able Arjun Musa Unavailable James Roach MD Primary Care Provider [phone] Bay Yin MD Unavailable Dax Cervantes MD Unavailable Ramon Fitzgerald MD Unavailable [phone] Active Problems Problem Noted Date Diagnosed Date [...] NSCLC. Mediastinal mass 09/24/2015 Tobacco abuse 09/24/2015 Current Treatment and Therapy Plans NON-SMALL CELL LUNG CA - CARBO/ TAXOL/ XRT WEEKLY* Plan Start Date:11/24/2015 Plan Provider:Bret Koo MD Linked Problems Mediastinal massNon-small ce ll cancer of right lung (HCC) Treatment Medications Current Day (Day 1 5, Cycle 4 - Planned for 04/09/2016) Next Day (Day 22, Cycle 4 - Planned for 04/30/2016) CARBOplatin (PARAPLATIN) chemo infusion (by AUC)PACLitaxel (TAXOL) chemo infusion CARBOplatin 167 mg in dextrose 5 % 150 mL chemo infusionPACLitaxel (TAXOL) 62.5 mg in dextrose 5 % 200 mL chemo infusion CARBOplatin 167 mg in dextrose 5 % 150 mL chemo infusionPACLitaxel (TAXOL) 62.2754 mg in dextrose 5 % 200 mL chemo infusion SUPPORT - GRANIX 300 - 3 DAY* Plan Start Date:03/11/2016 Plan Provider:Bret Koo MD Linked Problems Non-small cell cancer of rig ht lung (HCC) Treatment Medications No medications scheduled. Past Treatment and Therapy Plans No past plan information found. 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
--- OUTSIDE RECORDS SUMMARY | 2024-09-24 09:18 | XMS_ITS | Encounter Summary ---
Author Organization [facility] Address [address] [facility] [place] [address] Phone Care Team Providers Care Oven Operator Name Role Phone Bret Koo MD Unavailable Atif Bernstein MD Unavailable [phone] Meche Coburn MD Unavailable [phone] Charlie Beverly DO Unavailable [phone] Tona Castellanos RACE RELATIONS ADVISER, FLATCAR WHACKER Unavailable Kathryn Daniel MD Unavailable Unavail able Arjun Musa Unavailable James Roach MD Primary Care Provider Bay Yin MD Unavailable Dax Cervantes MD Unavailable Ramon Fitzgerald MD Unavailable [phone] Encounter Details Date Type Department Care Team (Late st Contact Info) Description 07/19/2023 Transcribe Orders [facility] [address] [place] [address] Jinny Graff MD [address] [place] [address] Senile arthritis (Primary Dx); Right hand pain; Left hand pain; Squamous carcinoma of lung, left (HCC) Social History Tobacco Use Types Packs/Day Years Used Date Smoking Tobacco: Former Cigarettes 1 20.1 1 997 - 07/27/2016 Smokeless Tobacco: Never Alcohol Use Standard Drinks/Week Comments No 0 (1 standard drink = 0.6 oz pur e alcohol) very rarely [facility] Utilities Answer Date Recorded In the past [...] often do you attend chur ch or druze services? 1 to 4 times per year 07/19/2023 Do you belong to any clubs o r organizations such as mosque groups, unions, fraternal or athletic groups, or [...] Answer Date Recorded PHQ-2 Score 0 02/16/2019 [facility] Occupat ional Health - Occupational Stress [...] place to sleep or slept in a retirement (including now)? No 07/19/2023 Education Answer Date [...] on file documented as of this encounter Functional Status * Audit-C Score Answer Date of Assessment Author 0 07/19/2023 1:57 PM POWER PLANT OPERATOR [facility] * Within the last year, have you been humiliated or emotionally abused in other ways by your partner or ex-partner? Answer Date of Assessment Author No 07/19/2023 1:57 PM POWER PLANT OPERATOR [facility] * Within the last year, have you been afraid of your partner or ex-partner? Answer Date of Assessment Author No 07/19/2023 1:57 PM POWER PLANT OPERATOR [facility] * Within the last year, have you been raped or forced to have any kind of sexual activity by your partner or ex-partner? Answer Date of Assessment Author No 07/19/2023 1:57 PM POWER PLANT OPERATOR [facility] * Within the last year, have you been kicked, hit, slapped, or otherwise physically hurt by your partner or ex-partner? Answer Date of Assessment Author No 07/19/2023 1:57 PM POWER PLANT OPERATOR [facility] * Q1: How often do you have a drink containing alcohol? Answer Date of Assessment Author Never 07/19/2023 1:57 PM POWER PLANT OPERATOR [facility] * Q2: How many drinks containing alcohol do you have on a typical day when you are drinking? Answer Date of Assessment Author Patient does not drink 07/19/2023 1:57 PM POWER PLANT OPERATOR [facility] * Q3: How often do you have six or more drinks on one occasion? Answer Date of Assessment Author Never 07/19/2023 1:57 PM POWER PLANT OPERATOR [facility] * Question Answer Date of Assessment Author Little interest or pleasure in doing things Not at all 07/19/2023 2:07 PM Abby Al MA Feeling down, depressed, or hopeless Not at all 07/19/2023 2:07 PM Abby Al MA * Over the past 2 weeks, how often have you been bothered by any of the following problems? Question Answer Date of Assessment Author Patient Health Questionnaire -2 Score 0 07/19/2023 2:07 PM Abby Al MA documented as of this encounter Plan of Treatment Upcoming Encounters Date Type Department Care Team (Late st Contact Info) Description 01/09/2025 10:45 AM CDT Office Visit [facility] Medical Group - Family Medicine [facility] [address] [place] [address] James Roach MD #[address] [address] 03/22/2025 11:00 AM CDT Office Visit [facility] Medical Group - Endocrinology - [place] [address] [place] [phone] Bay Yin MD #[address] [facility] [address] [place] [phone] documented as of this encounter Results * CYCLIC CITRULLINATED PEPTIDE 3 (07/19/2023 3:12 PM POWER PLANT OPERATOR) CCP IGG 0.5 <3.0 U/mL 07/19/2023 9:2 2 PM POWER PLANT OPERATOR [facility] Blood Venipuncture / Unknown 07/19/2023 3:12 PM POWER PLANT OPERATOR 07/19/2023 3:29 PM POWER PLANT OPERATOR Narrative [facility] - 07/19/2023 9:22 PM POWER PLANT OPERATOR Antibody testing was performed by multiplex flow immunoassay on the BioPlex platform. Jinny Graff MD IMMUNOLOGY ORDERABLES Final Re sult Performing Organization Address [facility]/ZIP Co de Phone Number [facility] [address] [place] [address], [place] * ROSE SCREEN MULTIPLEX W/REFLEX JASON (07/19/2023 3:12 PM POWER PLANT OPERATOR) ROSE SCR MULTIPLEX Negative Negative, See comment 07/19/2023 9:22 PM POWER PLANT OPERATOR [facility] Blood Venipuncture / Unknown 07/19/2023 3:12 PM POWER PLANT OPERATOR 07/19/2023 3:29 PM POWER PLANT OPERATOR Narrative [facility] - 07/19/2023 9:22 PM POWER PLANT OPERATOR Antibody testing was performed by multiplex flow immunoassay on the BioPlex platform. Jinny Graff MD IMMUNOLOGY ORDERABLES Final Re sult Performing Organization Address City/[facility]/ZIP Co de Phone Number [facility] [address] [address] documented in this encounter Visit Diagnoses Diagnosis Senile arthritis- Primary Osteoarthrosis, unspecified whether generalized or localized, unspecified site Right hand pain Pain in limb Left hand pain Pain in limb Squamous carcinoma of lung, left (HCC) documented in this encounter Additional Health Concerns Assessment Noted Time PHQ-9 Depression Total Score: 0 04/09/20 19 3:00 PM CDT documented as of this encounter Care Teams Oven Operator Relationship Specialty Start Date End Date James Roach MD #[address] [address] PCP - General Family Medicine 05/26/21 Bret Koo MD Consulting Physician Oncology 11/18/15 08/13/24 Atif Bernstein MD [address] [place] [address] Consulting Physician Radiation Oncology 11/19/15 Meche Coburn MD [address] [facility] [facility] [address] [place] [address] Consulting Physician Pulmonary Disease 11/21/15 Charlie Beverly DO [address] [facility] [facility] [address] [place] [address] Gastroenterology 03/30/16 08/13/24 Tona Castellanos APRN, FLATCAR WHACKER [address] [facility] [place] [address] Nurse Practitioner Advanced Practice Nurse 08/03/1608/13/24 Kathryn Daniel MD [address] [facility] [place] [address] Obstetrics & Gynecology 05/16/17 Arjun Musa [address] [place] [address] [address] [place] [address] Radiation Oncologist Hematology 06/13/18 Bay Yin MD #[address] [address] Consulting Physician Endocrinology 01/14/22 Dax Cervantes MD #[address] [address] Consulting Physician Colon and Rectal Surgery 07/23/22 Ramon Fitzgerald MD #2 [place] [address] Consulting Physician Neurology 05/13/23 documented as of this encounter
--- OUTSIDE RECORDS SUMMARY | 2024-09-24 09:18 | XMS_ITS | Encounter Summary ---
Author Organization [facility] Address [address] [place] [address] Phone Care Team Providers Care Sail Maker Name Role Phone Bret Koo MD Unavailable Atif Bernstein MD Unavailable [phone] Meche Coburn MD Unavailable [phone] Charlie Beverly DO Unavailable [phone] Tona Castellanos APRN, SENIOR WAREHOUSE CLERK Unavailable [phone] Kathryn Daniel MD Unavailable Unavail able Arjun Musa Unavailable James Roach MD Primary Care Provider Bay Yin MD Unavailable Dax Cervantes MD Unavailable Ramon Fitzgerald MD Unavailable [phone] Reason for Visit * Reason Comments Medication Refill Encounter Details Date Type Department Care Team (Late st Contact Info) Description 09/07/2022 Refill [facility] - General Surgery - [place] #[address] [address] Dax Cervantes MD #[address] [address] Medication Refill Social History Tobacco Use Types Packs/Day Years Used Date Smoking Tobacco: Former Cigarettes 1 20.1 1 997 - 07/27/2016 Smokeless Tobacco: Never Alcohol Use Standard Drinks/Week Comments No 0 (1 standard drink = 0.6 oz pur e alcohol) very rarely PHQ-2 Answer Date Recorded PHQ-2 Score 0 02/16/2019 Sexually Active Control Partners Comments Not Currently [...] encounter Miscellaneous Notes * Telephone Encounter - Maria C Nelson RN - 09/07/2022 11:56 AM CDT Call placed to patient, patient stated that she has three full bottles at home and does not need a refill at this time. documented in this encounter Plan of Treatment Upcoming Encounters Date Type Department Care Team (Late st Contact Info) Description 01/09/2025 10:45 AM CDT Office Visit [facility] Medical Group - Family Medicine [facility] #[address] [place] [address] James Roach MD #2 [facility] [address] [place] [address] 03/22/2025 11:00 AM CDT Office Visit [facility] Medical [facility] - Endocrinology - [place] [address] [place] [address] Bay Yin MD #2 [facility] [address] [place] [address] documented as of this encounter Visit Diagnoses Not on filedocumented in this encounter Additional Health Concerns Assessment Noted Time PHQ-9 Depression Total Score: 0 04/09/20 19 3:00 PM CDT documented as of this encounter Care Teams Sail Maker Relationship Specialty Start Date End Date James Roach MD [address] [facility] [address] [place] [address] PCP - General Family Medicine 05/26/21 Bret Koo MD Consulting Physician Oncology 11/18/15 08/13/24 Atif Bernstein MD [address] [place] [address] Consulting Physician Radiation Oncology 11/19/15 Meche Coburn MD [address] [facility] [address] [place] [address] Consulting Physician Pulmonary Disease 11/21/15 Charlie Beverly DO [address] [facility] [address] [place] [address] Gastroenterology 03/30/16 08/13/24 Tona Castellanos, MARINE ENGINE MACHINIST APPRENTICE, SENIOR WAREHOUSE CLERK [address] [facility] [address] [place] [address] Nurse Practitioner Advanced Practice Nurse 08/03/1608/13/24 Kathryn Daniel MD [address] [facility] [address] [place] [address] Obstetrics & Gynecology 05/16/17 Arjun Musa [address] [facility] [address] [place] [address] Radiation Oncologist Hematology 06/13/18 Bay Yin MD #[address] [address] Consulting Physician Endocrinology 01/14/22 Dax Cervantes MD #[address] [address] Consulting Physician Colon and Rectal Surgery 07/23/22 Ramon Fitzgerald MD #[address] [place] [address] Consulting Physician Neurology 05/13/23 documented as of this encounter
--- OUTSIDE RECORDS SUMMARY | 2024-09-24 09:18 | XMS_ITS | Clinical Summary ---
Author Organization [facility] Address [address] [place] [address] Care Team Providers Care Medical Scheduler Name Role Phone James Roach MD Primary Care Provider [phone] Allergies Active Allergy Reactions Criticality Noted Date Comments Penicillins Unknown,Nausea and Vomiting,Rash Low Medications amLODIPine (NORVASC) 5 mg tablet Take 10 mg by mouth daily . Active cholecalciferol , Vitamin D3, 5,000 unit Capsule Take 5,000 Units by mouth daily. Active OTHERIndication s:cannibus oil Provider please include Medication name, dose, route and frequency . Active ascorbic acid, vitamin C, (VITAMIN C) 500 mg tablet Take 500 mg by mouth daily. Active rema root, bulk, Powder by [facility].(Non-Drug; Combo Route) route. Active turmeric root extract 500 mg Capsule Take by mouth. Activ e naloxone (NARCAN) 4 mg/spray [place], Non-Aerosol EMERGENCY USE ONLY: Administer 1 spray (4 mg) in one nostril one time. May repeat in alternating nostrils every 2-3 min until responsive or EMS arrives. 2 Each 3 0 Active mecobalamin, vitamin B12, 1,000 mcg Tablet, Chewable Take 1 Tablet by mouth every other day. Active ferrous sulfate 325 mg (65 mg iron) tablet Take 325 mg by mouth daily. Active lidocaine-prilo gissell (EMLA) 2.5-2.5 % CreamIndication s:Adenocarcinom a of lung, unspecified laterality (CMS/HCC),Non-s mall cell lung cancer, right (CMS/HCC) APPLY TO AFFECTED AREA TO PORT SITE 30 MINUTES PRIOR TO ACCESS 30 Gram 3 1 Active VITAMIN B COMPLEX ORAL Take by mouth. Ac tive umeclidinium (Incruse Ellipta) 62.5 mcg/actuation Disk with Device INHALE 1 PUFF BY MOUTH DAILY 30 Each 3 1 Active levothyroxine 100 mcg tablet Take 80 mcg by mouth daily. 2 Active allopurinoL (ZYLOPRIM) 100 mg tablet Take 100 mg by mouth daily. 2 Active hydroxychloroqu ine (PLAQUENIL) 200 mg tablet Take 200 mg by mouth daily. Active hydroxychloroqu ine (PLAQUENIL) 200 mg tablet Take 200 mg by mouth 2 times daily. Active alendronate (FOSAMAX) 70 mg tablet Take 1 Tablet by mouth every 7 days. 4 Active albuterol sulfate HFA 90 mcg/actuation aerosol inhalerIndicati ons:Non-small cell lung cancer, right (CMS/HCC),Short ness of breath inhale 2 puffs by mouth every 6 hours as needed for shortness of breath 18 Gram 1 4 Active folic acid (FOLVITE) 1 mg tabletIndicatio ns:Adenocarcino ma of lung, unspecified laterality (CMS/HCC),Non-s mall cell lung cancer, right (CMS/HCC) Take 1 Tablet (1 mg) by mouth daily. 30 Tablet 1 5 Active ALPRAZolam (XANAX) 0.25 mg tabletIndicatio ns:Adenocarcino ma of lung, unspecified laterality (CMS/HCC),Non-s mall cell lung cancer, right (CMS/HCC),Non-s mall cell lung cancer, unspecified laterality (CMS/HCC) Take 1 Tablet (0.25 mg) by mouth 2 times daily. 60 Tablet 5 Active oxyCODONE (ROXICODONE) 5 mg tabletIndicatio ns:Adenocarcino ma of lung, unspecified laterality (CMS/HCC),Non-s mall cell lung cancer, right (CMS/HCC),Non-s mall cell lung cancer, unspecified laterality (CMS/HCC),Short ness of breath Take 1 Tablet (5 mg) by mouth every 4 hours as needed for Pain. Max Daily Amount: 30 mg 100 Tablet 5 Active temazepam (RESTORIL) 15 mg capsuleIndicati ons:Adenocarcin jannet of lung, unspecified laterality (CMS/HCC),Non-s mall cell lung cancer, right (CMS/HCC),Non-s mall cell lung cancer, unspecified laterality (CMS/HCC),Short ness of breath TAKE 1 CAPSULE BY MOUTH EVERY NIGHT NEEDED 30 Capsule 5 Active ALPRAZolam (XANAX) 0.25 mg tabletIndicatio ns:Adenocarcino ma of lung, unspecified laterality (CMS/HCC),Non-s mall cell lung cancer, right (CMS/HCC),Non-s mall cell lung cancer, unspecified laterality (CMS/HCC) Take 1 Tablet (0.25 mg) by mouth 2 times daily. 60 Tablet 5 025 Discontin ued(Reord er) temazepam (RESTORIL) 15 mg capsuleIndicati ons:Adenocarcin jannet of lung, unspecified laterality (CMS/HCC),Non-s mall cell lung cancer, right (CMS/HCC),Non-s mall cell lung cancer, unspecified laterality (CMS/HCC),Short ness of breath TAKE 1 CAPSULE BY MOUTH EVERY NIGHT NEEDED 30 Capsule 5 025 Discontin ued(Reord er) oxyCODONE (ROXICODONE) 5 mg tabletIndicatio ns:Adenocarcino ma of lung, unspecified laterality (CMS/HCC),Non-s mall cell lung cancer, right (CMS/HCC),Non-s mall cell lung cancer, unspecified laterality (CMS/HCC),Short ness of breath Take 1 Tablet (5 mg) by mouth every 4 hours as needed for Pain. 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 Adenocarcinoma, lung 10/13/2016 HTN (hypertension), benign 10/13/2016 Emphysema of lung 10/05/2016 Benign hypertension 10/05/2016 Encounters Date Type Department Care Team Description 09/17/2024 Orders Only [facility] Oncology and Hematology [facility] [address] [place] [address] Arjun Musa MD Adenocarcinoma of lung, unspecified laterality (CMS/HCC) 09/14/2024 Refill [facility] Oncology and Hematology - [place] [address] Arjun Musa MD Adenocarcinoma of lung, unspecified laterality (CMS/HCC); Non-small cell lung cancer, right (CMS/HCC); Non-small cell lung cancer, unspecified laterality (CMS/HCC); Shortness of breath 09/12/2024 Refill [facility] Oncology and Hematology [place] [address] Arjun Musa MD Adenocarcinoma of lung, unspecified laterality (CMS/HCC); Non-small cell lung cancer, right (CMS/HCC); Non-small cell lung cancer, unspecified laterality (CMS/HCC) 09/04/2024 Orders Only [facility] Oncology and Hematology - [place] [address] Arjun Musa MD 09/03/2024 Orders Only [facility] Oncology and Hematology - [place] [address] [place] [id number] Arjun Musa MD Adenocarcinoma of lung, unspecified laterality (CMS/HCC) (Primary Dx) 08/23/2024 Refill [facility] Oncology and Hematology - [place] [address] Arjun Musa MD Adenocarcinoma of lung, unspecified laterality (CMS/HCC); Non-small cell lung cancer, right (CMS/HCC); Non-small cell lung cancer, unspecified laterality (CMS/HCC); Shortness of breath 08/21/2024 Refill [facility] Oncology and Hematology - [place] [address] [place] [phone] Arjun Musa MD Adenocarcinoma of lung, unspecified laterality (CMS/HCC); Non-small cell lung cancer, right (CMS/HCC); Non-small cell lung cancer, unspecified laterality (CMS/HCC); Shortness of breath 08/21/2024 Refill [facility] Oncology and Hematology - [place] [address] Arjun Musa MD Adenocarcinoma of lung, unspecified laterality (CMS/HCC); Non-small cell lung cancer, right (CMS/HCC) 08/20/2024 Orders Only [facility] Oncology and Hematology - [place] [address] Arjun Musa MD Adenocarcinoma of lung, unspecified laterality (CMS/HCC) 08/14/2024 Orders Only [facility] Oncology and Hematology - [place] [address] Arjun Musa MD 08/13/2024 Orders Only [facility] Oncology and Hematology - [place] [address] [place] [id number] Arjun Musa MD 08/06/2024 Orders Only [facility] Oncology and Hematology - [place] [address] [place] [address] Arjun Musa MD Adenocarcinoma of lung, unspecified laterality (CMS/HCC) 08/02/2024 Refill [facility] Oncology and Hematology - [place] [address] Arjun Musa MD Adenocarcinoma of lung, unspecified laterality (CMS/HCC); Non-small cell lung cancer, right (CMS/HCC); Non-small cell lung cancer, unspecified laterality (CMS/HCC); Shortness of breath 08/01/2024 Refill [facility] Oncology and Hematology - [place] [address] [place] [address] Arjun Musa MD Adenocarcinoma of lung, unspecified laterality (CMS/HCC); Non-small cell lung cancer, right (CMS/HCC); Non-small cell lung cancer, unspecified laterality (CMS/HCC); Shortness of breath 07/31/2024 External Device Data STL ABSTRACTION Provider, Abstract 07/23/2024 9:15 AM BULL FIDDLE PLAYER Office Visit [facility] Oncology [facility] Hematology [facility] [address] [place] [id number] Arjun Musa MD Adenocarcinoma of lung, unspecified laterality (CMS/HCC) 07/23/2024 Orders Only [facility] Oncology [facility] Hematology [facility] [address] [place] [phone] Arjun Musa MD Need for hepatitis B screening test (Primary Dx) 07/16/2024 Orders Only [facility] Oncology [facility] Hematology [place] [address] [address] Arjun Musa MD 2024 Refill [facility] Oncology [facility] Hematology [facility] [address] [place] [address] Arjun Musa MD Adenocarcinoma of lung, unspecified laterality (CMS/HCC); Non-small cell lung cancer, right (CMS/HCC); Non-small cell lung cancer, unspecified laterality (CMS/HCC); Shortness of breath 07/09/2024 Orders Only [facility] Oncology [facility] Hematology [facility] [address] [place] [address] Arjun Musa MD Adenocarcinoma of lung, unspecified laterality (CMS/HCC) 07/05/2024 External Device Data STL ABSTRACTION Provider, Abstract 07/03/2024 External Device Data STL ABSTRACTION Provider, Abstract 07/03/2024 External Device Data STL ABSTRACTION Provider, Abstract 07/03/2024 Orders Only [facility] Oncology and Hematology [facility] [address] [place] [address] Arjun Musa MD 07/02/2024 Refill [facility] Oncology and Hematology [facility] [address] [place] [address] Arjun Musa MD Adenocarcinoma of lung, unspecified laterality (CMS/HCC); Non-small cell lung cancer, right (CMS/HCC); Non-small cell lung cancer, unspecified laterality (CMS/HCC) from Last 3 Months Family History Medical History Relation Name Comments Cancer Mother Hypertension Mother Relation Name Status Comments Father Alive Mother Alive Sister Alive Social History Tobacco Use Types Packs/Day Years Used Date Smoking Tobacco: Former Cigarettes Q uit: 06/13/2016 Smokeless Tobacco: Never Tobacco Cessation:Counseling Given: Not Answered Comments:Nicotine Patch Alcohol Use Standard Drinks/Week Comments No 0 (1 standard drink = 0.6 oz pur e alcohol) Comments No Sex and Gender Information Value Date Recorded Sex Assigned at Not on file Legal Sex Female 3:52 PM CDT Gender Identity Not on file Sexual Orientation Not on file Last Filed Vital Signs Vital Sign Reading Time Taken Comments Blood Pressure 112/83 07/23/2024 9:29 AM BULL FIDDLE PLAYER Pulse 101 07/23/2024 9:29 AM BULL FIDDLE PLAYER Temperature 37 C (98.6 F) 07/23/2024 9:29 AM BULL FIDDLE PLAYER Respiratory Rate 16 07/23/2024 9:29 AM BULL FIDDLE PLAYER Oxygen Saturation 96% 07/23/2024 9:29 AM BULL FIDDLE PLAYER Inhaled Oxygen Concentration - - Weight 53.5 kg (118 lb) 07/23/2024 9:29 AM BULL FIDDLE PLAYER Height 167.6 cm (5' 6 ) 04/12/2022 11:45 AM CDT Body Mass Index 19.05 04/12/2022 11:45 AM CDT Plan of Treatment Health Maintenance Due Date Last Done Comments DTAP/TDAP/TD VACCINES (1 - Tdap) 1990 HEPATITIS B VACCINES (1 of 3 - 19+ 3-dose series) 1990 ZOSTER VACCINE (1 of 2) 1990 COLORECTAL SCREENING 2016 Colorectal Cancer Screening 2016 FIT-DNA Q 3 years 2016 FIT/FOBT Q 1 year 2016 Flex Sig/CT Colonography Q 5 years 2016 INFLUENZA VACCINE (#1) 2024 BREAST CANCER SCREENING 07/20/2024 07/20/19 24, 05/15/2022, 05/15/2022, Additional history exists Procedures Procedure Name Priority Date/Time Associated Diagnosis Comments COMPREHENSIVE METABOLIC PANEL Routine 09/03/2024 1:41 PM CDT BASIC METABOLIC PANEL Routine 09/03/2024 11:30 AM CDT BASIC METABOLIC PANEL Routine 08/13/2024 2:41 PM BULL FIDDLE PLAYER COMPREHENSIVE METABOLIC PANEL Routine 08/13/2024 10:[address] CHEST W CONTRAST Routine 07/16/2024 2 :38 PM BULL FIDDLE PLAYER COMPREHENSIVE METABOLIC PANEL Routine 07/02/2024 3:24 PM BULL FIDDLE PLAYER MAMMO SCREENING BILAT Routine 07/20/2023 2:50 PM BULL FIDDLE PLAYER from Last 3 Months or Most Recently Relevant to Health Maintenance Results * COMPREHENSIVE METABOLIC PANEL (09/03/2024 1:41 PM CDT) Only the most recent of3 resultswithin the time period is included. Blood us Arjun Musa MD CHEMISTRY ORDERABLES Final Resu lt * BASIC METABOLIC PANEL (09/03/2024 11:30 AM CDT) Only the most recent of2 resultswithin the time period is included. Blood us Arjun Musa MD CHEMISTRY ORDERABLES Final Resu lt * CT CHEST W CONTRAST (07/16/2024 2:38 PM BULL FIDDLE PLAYER) Anatomical Region Laterality Modality Chest Computed Tomogra phy us Arjun Musa MD CT ORDERABLES Final Result * MAMMO SCREENING BILAT (07/20/2023 2:50 PM BULL FIDDLE PLAYER) Anatomical Region Laterality Modality Breast Bilateral Mammography us Arjun Musa MD MAMMO ORDERABLES Final Result from Last 3 Months or Most Recently Relevant to Health Maintenance Insurance [facility] MEDICAID MEDICAID Care Teams Medical Scheduler Relationship Specialty Start Date End Date James Roach MD 2 [facility] [address] [place] [phone] PCP - General Family Practice 09/14/21
--- OUTSIDE RECORDS SUMMARY | 2024-09-24 09:18 | XMS_ITS | Encounter Summary ---
Author Organization [facility] Address [address] [place] [address] Phone Care Team Providers Care Pastry Baker Name Role Phone Bret Koo MD Unavailable Atif Bernstein MD Unavailable [phone] Meche Coburn MD Unavailable [phone] Charlie Beverly DO Unavailable [phone] Tona Castellanos SPEECH PATHOLOGY ASSISTANT, FUNERAL DIRECTOR/EMBALMER/OWNER Unavailable [phone] James Roach MD Primary Care Provider [phone] Kathryn Daniel MD Unavailable Unavail able Arjun Musa Unavailable Cody Musa MD Primary Care Provide r James Roach MD Primary Care Provider [phone] Bay Yin MD Unavailable Dax Cervantes MD Unavailable Ramon Fitzgerald MD Unavailable [phone] Reason for Visit * Reason Comments Medication Refill Encounter Details Date Type Department Care Team (Late st Contact Info) Description 04/01/2020 Refill [facility] [address]2 [place] [id number] James Roach MD [address] [address] Medication Refill Social History Tobacco Use Types Packs/Day Years Used Date Smoking Tobacco: Former Cigarettes 0.3 20 0 07/27/1996 - 07/27/2016 Smokeless Tobacco: Never Comments:TRYING TO QUIT HAS PATCH Alcohol Use Standard Drinks/Week Comments No 0 (1 standard drink = 0.6 oz pur e alcohol) very rarely PHQ-2 Answer Date Recorded PHQ-2 Score 0 02/16/2019 Comments No Sex and Gender Information Value [...] Telephone Encounter - Jessica Post RN - 04/02/2020 8:45 AM CDT Spoke with Jeanne, patient's mom (on PRD), informed her she would need to contact the pharmacy to update new pcp information. Verbalized understanding. * Telephone Encounter - James Roach MD - 04/01/2020 8:16 PM CDT Let her pharmacy know that I am no longer her provider and they need to forward it to her current provider. Thanks! documented in this encounter Plan of Treatment Upcoming Encounters Date Type Department Care Team (Late st Contact Info) Description 01/09/2025 10:45 AM CDT Office Visit [facility] - Family Medicine - [place] [address] [place] [address] James Roach MD [address] [address] 03/22/2025 11:00 AM CDT Office Visit [facility] - Endocrinology - [place] #2 [place] [address] Bay Yin MD #2 [facility] [address] [place] [address] documented as of this encounter Visit Diagnoses Not on filedocumented in this encounter Additional Health Concerns Assessment Noted Time PHQ-9 Depression Total Score: 0 04/09/20 19 3:00 PM CDT documented as of this encounter Care Teams Pastry Baker Relationship Specialty Start Date End Date James Roach MD #[address] [address] PCP - General Family Medicine 11/15/16 08/12/20 Cody Musa MD [address] [place], [place] [address] PCP - General Internal Medicine 08/13/20 05/25/21 James Roach MD #[address] [address] PCP - General Family Medicine 05/26/21 Bret Koo MD Consulting Physician Oncology 11/18/15 08/13/24 Atif Bernstein MD [address] [place] [address] Consulting Physician Radiation Oncology 11/19/15 Meche Coburn MD [address] [facility] [address] [facility] [address] [place] [address] Consulting Physician Pulmonary Disease 11/21/15 Charlie Beverly DO [address] [facility] [address] [facility] [address] [place] [address] Gastroenterology 03/30/16 08/13/24 Tona Castellanos APRN, FUNERAL DIRECTOR/EMBALMER/OWNER [address] [facility] [address] [facility] [address] [place] [address] Nurse Practitioner Advanced Practice Nurse 08/03/1608/13/24 Kathryn Daniel MD #[address] [address] Obstetrics & Gynecology 05/16/17 Arjun Musa [address] [place] [address] [address] [place] [phone] Radiation Oncologist Hematology 06/13/18 Bay Yin MD #[address] [phone] Consulting Physician Endocrinology 01/14/22 Dax Cervantes MD #[address] [address] Consulting Physician Colon and Rectal Surgery 07/23/22 Ramon Fitzgerald MD #2 [place] [address] Consulting Physician Neurology 05/13/23 documented as of this encounter
--- OUTSIDE RECORDS SUMMARY | 2024-09-24 09:18 | XMS_ITS | Encounter Summary ---
Author Organization [facility] Address [address] [place] [address] Phone Care Team Providers Care Chief Clinical Officer Name Role Phone Bret Koo MD Unavailable Atif Bernstein MD Unavailable [phone] Meche Coburn MD Unavailable [phone] Charlie Beverly DO Unavailable [phone] Tona Castellanos APRN, BIAS MACHINE OPERATOR Unavailable Kathryn Daniel MD Unavailable Unavail able Arjun Musa Unavailable James Roach MD Primary Care Provider Bay Yin MD Unavailable Dax Cervantes MD Unavailable Ramon Fitzgerald MD Unavailable [phone] Reason for Visit * Reason Comments Medication Refill Encounter Details Date Type Department Care Team (Late st Contact Info) Description 11/28/2023 Refill [facility] - Family Medicine - [place] [address] [place] [address] James Roach MD #[address] [address] Medication Refill Social History Tobacco Use Types Packs/Day Years Used Date Smoking Tobacco: Former Cigarettes 1 20.1 1 997 - 07/27/2016 Smokeless Tobacco: Never Alcohol Use Standard Drinks/Week Comments No 0 (1 standard drink = 0.6 oz pur e alcohol) very rarely [facility] Utilities Answer Date Recorded In the past [...] often do you attend chur ch or yarsanism services? 1 to 4 times per year 07/19/2023 Do you belong to any clubs o r organizations such as advent groups, unions, fraternal or athletic groups, or [...] Answer Date Recorded PHQ-2 Score 0 02/16/2019 [facility] [place] of Occupat ional Health - Occupational Stress [...] place to sleep or slept in a intermediate (including now)? No 07/19/2023 Education Answer Date [...] encounter Miscellaneous Notes * Telephone Encounter - Krissy Thayer RN - 11/28/2023 1:13 PM CDT Medication failed the protocol, provider to review and approve the medication order if appropriate. Requested Prescriptions Pending Prescriptions Disp Refills gabapentin (NEURONTIN) 100 MG Capsule [Pharmacy Med Name: GABAPENTIN 100MG CAPSULES] 90 Capsule 2 Sig: TAKE 1 CAPSULE BY MOUTH THREE TIMES DAILY FOR NERVE PAIN Not Delegated - Anticonvulsants Excluding Benzodiazepines Protocol Failed - 11/28/2023 8:42 AM Failed - This refill cannot be delegated Passed - Visit with relevant provider in past 12 months or upcoming 90 days Recent Visits Date Type Provider Dept 10/18/23 Office Visit James Roach MD [facility] 08/23/23 Office Visit James Roach MD [facility] 07/19/23 Office Visit James Roach MD [facility] 05/19/23 Office Visit Lenny Thornton MD [facility] 04/21/23 Telemedicine James Roach MD [facility] 04/12/23 Office Visit James Roach MD [facility] 03/08/23 Office Visit Jordin Heath [facility] C[facility] [place] 01/05/23 Office Visit [facility] [place] Showing recent visits within past 365 days and meeting all other requirements Future Appointments Date Type Provider Dept 02/07/24 Appointment James Roach MD [facility] Showing future appointments within next 90 days and meeting all other requirements documented in this encounter Plan of Treatment Upcoming Encounters Date Type Department Care Team (Late st Contact Info) Description 01/09/2025 10:45 AM CDT Office Visit [facility] - Family Medicine - [place] [address] [place] [address] James Roach MD #2 [facility] [address] [place] [address] 03/22/2025 11:00 AM CDT Office Visit [facility] - Endocrinology - [place] #2 [place] [address] Bay Yin MD #[address] [place] [address] documented as of this encounter Visit Diagnoses Diagnosis Left hand paresthesia Disturbance of skin sensation documented in this encounter Additional Health Concerns Assessment Noted Time PHQ-9 Depression Total Score: 0 04/09/20 19 3:00 PM CDT documented as of this encounter Care Teams Chief Clinical Officer Relationship Specialty Start Date End Date James Roach MD #2 [facility] [address] [place] [address] PCP - General Family Medicine 05/26/21 Bret Koo MD Consulting Physician Oncology 11/18/15 08/13/24 Atif Bernstein MD [address] [place] [address] Consulting Physician Radiation Oncology 11/19/15 Meche Coburn MD [address] [facility] [address] [facility] [address] [place] [address] Consulting Physician Pulmonary Disease 11/21/15 Charlie Beverly DO [address] [facility] [address] [place] [address] Gastroenterology 03/30/16 08/13/24 Tona Castellanos, HORTICULTURALIST, BIAS MACHINE OPERATOR [address] [facility] [address] [facility] [address] [place] [address] Nurse Practitioner Advanced Practice Nurse 08/03/1608/13/24 Kathryn Daniel MD [address] [facility] [address] [address] [place] [address] Obstetrics & Gynecology 05/16/17 Arjun Musa [address] [facility] [address] [place] [address] Radiation Oncologist Hematology 06/13/18 Bay Yin MD #[address] [address] Consulting Physician Endocrinology 01/14/22 Dax Cervantes MD #[address] [address] Consulting Physician Colon and Rectal Surgery 07/23/22 Ramon Fitzgerald MD #2 [place] [address] Consulting Physician Neurology 05/13/23 documented as of this encounter
--- OUTSIDE RECORDS SUMMARY | 2024-09-24 09:18 | XMS_ITS | Clinical Summary ---
Author Organization [facility] [employer] Address [address] [place] [address] Care Team Providers Care Director Of In Service Education Name Role Phone Alexandra Ramirez REJI-LABORER LIVESTOCK Primary Care Provider Source Comments [facility],non-owned Affiliates and Associated Physician Practices is amultiple site organization consisting of ambulatory clinics and hospital sitesin [place], [place], [place] and [place]. This disclosure is being madepursuant to the Care Everywhere program and may not contain all information available regarding this patient. Last updated 18.[facility] [employer] Allergies Active Allergy Reactions Criticality Noted Date Comments Penicillin G Nausea and/or Vomiting Low 10/16/2015 Family History Medical History Relation Name Comments Cancer Mother Relation Name Status Comments Mother Social History Tobacco Use Types Packs/Day Years Used Date Smoking Tobacco: Every Day Cigarettes Smokeless Tobacco: Never Alcohol Use Standard Drinks/Week Comments Yes 0 (1 standard drink = 0.6 oz pur e alcohol) Comments Unknown Sex and Gender Information Value Date Recorded Sex Assigned at Not on file Legal Sex Female 5:36 PM 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 Gender Identity Not on file Sexual Orientation Not on file Last Filed Vital Signs Vital Sign Reading Time Taken Comments Blood Pressure 158/92 10/29/2015 5:00 PM CDT Pulse 91 10/29/2015 5:00 PM CDT Temperature 36.5 C (97.7 F) 10/29/2015 10:08 AM CDT Respiratory Rate 11 10/29/2015 4:45 PM CDT Oxygen Saturation 94% 10/29/2015 5:00 PM CDT Inhaled Oxygen Concentration - - Weight 52.8 kg (116 lb 6.4 oz) 10/29/2015 10:08 AM CDT Height 170.2 cm (5' 7 ) 10/20/2015 8:20 AM CDT Body Mass Index 18.23 10/20/2015 8:20 AM CDT Plan of Treatment Health Maintenance Due Date Last Done Comments COLOGUARD (AGES 45-75) - COL ON CA SCREENING 1971 COLON MONITORING 1971 COLONOSCOPY - COLON CA SCREENING 1971 CT COLONOGRAPHY - COLON CA SCREENING 1971 Colorectal Cancer Screening 1971 FIT - COLON CA SCREENING 1971 FLEX SIG - COLON CA SCREENING 1971 LIPID TESTING 1971 MAMMOGRAM 1971 PAP SMEAR 1971 HIV SCREENING 1986 HEPATITIS C SCREENING 07/08/1989 DTAP/TDAP/TD VACCINES (1 - Tdap) 1990 HEPATITIS B VACCINE (1 of 3 - 19+ 3-dose series) 1990 PNEUMOCOCCAL VACCINE 50+ (1 of 2 - PCV) 1990 PNEUMOCOCCAL VACCINE (1 of 2 - PCV) 1990 ZOSTER VACCINE (1 of 2) 2021 COVID-19 VACCINE (1 - 2023-2 5 season) 2024 DEPRESSION SCREENING 06/13/2024 INFLUENZA VACCINE (Season Ended) 2025 HIB VACCINE Aged Out No longer eligi ble based on patient's age to complete this topic HPV VACCINE Aged Out No longer eligi ble based on patient's age to complete this topic MENINGOCOCCAL (Group B) VACC INE SHARED DECISION-MAKING Aged Out No longer eligibl e based on patient's age to complete this topic MENINGOCOCCAL GROUPS A/C/Y/W VACCINE Aged Out No longer eligible b ased on patient's age to complete this topic Insurance [facility] Care Teams Director Of In Service Education Relationship Specialty Start Date End Date Alexandra Ramirez, DIRECTOR ELECTRONICS-LABORER LIVESTOCK [address] [facility] [place] [address] [place] [phone] PCP - General 11/23/16
--- OUTSIDE RECORDS SUMMARY | 2024-09-24 09:18 | XMS_ITS | Encounter Summary ---
Author Organization [facility] Address [address] [place] [address] Phone Care Team Providers Care Cardiology Associate Name Role Phone Bret Koo MD Unavailable Atif Bernstein MD Unavailable [phone] Meche Coburn MD Unavailable [phone] Charlie Beverly DO Unavailable [phone] Tona Castellanos POWDER AND PRIMER CANNING LEADER, GENERAL SURGERY PHYSICIAN ASSISTANT Unavailable [phone] James Roach MD Primary Care Provider [phone] Kathryn Daniel MD Unavailable Unavail able Arjun Musa Unavailable Cody Musa MD Primary Care Provide r James Roach MD Primary Care Provider [phone] Bay Yin MD Unavailable Dax Cervantes MD Unavailable Ramon Fitzgerald MD Unavailable [phone] Reason for Visit * Reason Comments Medication Refill Encounter Details Date Type Department Care Team (Late st Contact Info) Description 11/06/2019 [facility]ill [facility] [address]2 [place] [phone] James Roach MD #[address] [address] Medication Refill Social History Tobacco Use Types [...] encounter Miscellaneous Notes * Telephone Encounter - Shonna Patterson RN - 11/06/2019 3:25 PM CDT Requested Prescriptions Pending Prescriptions Disp Refills temazepam (RESTORIL) 15 MG Capsule [Pharmacy Med Name: TEMAZEPAM 15MG CAPSULES] 30 Cap 0 Sig: TAKE 1 CAPSULE BY MOUTH AT BEDTIME NEEDED FOR SLEEP Not Delegated - Psychiatry: Anxiolytics/Hypnotics Failed - 11/06/2019 3:24 PM Failed - Valid encounter within last 6 months Past Office Visits Recent Outpatient Visits 7 months ago Chronic prescription benzodiazepine use [facility] James Roach MD 9 months ago Pericardial effusion [facility] James Roach MD 10 months ago Non-intractable vomiting with nausea, unspecified vomiting type [facility] James Roach MD 1 year ago Low TSH level [facility] James Pruitt MD 1 year ago Abdominal pain, unspecified abdominal location [facility] Jordin Heath APN, GENERAL SURGERY PHYSICIAN ASSISTANT Upcoming Appointments Failed - This refill cannot be delegated Powered by [facility] - 11/06/2019 3:24 PM Information pending documented in this encounter Plan of Treatment Upcoming Encounters Date Type Department Care Team (Late st Contact Info) Description 01/09/2025 10:45 AM CDT Office Visit [facility] - Family Medicine [facility] [address]2 [place] [address] James Roach MD #[address] [address] 03/22/2025 11:00 AM CDT Office Visit [facility] Endocrinology [facility] [address]2 [place] [phone] Bay Yin MD #[address] [address] documented as of this encounter Visit Diagnoses Not on filedocumented in this encounter Additional Health Concerns Assessment Noted Time PHQ-9 Depression Total Score: 0 04/09/20 19 3:00 PM CDT documented as of this encounter Care Teams Cardiology Associate Relationship Specialty Start Date End Date James Roach MD #[address] [address] PCP - General Family Medicine 11/15/16 08/12/20 Cody Musa MD [address] [place] [address] PCP - General Internal Medicine 08/13/20 05/25/21 James Roach MD #[address] [address] PCP - General Family Medicine 05/26/21 Bret Koo MD Consulting Physician Oncology 11/18/15 08/13/24 Atif Bernstein MD [address] [place] [address] Consulting Physician Radiation Oncology 11/19/15 Meche Coburn MD [address] [facility] [address] [facility] [address] [place] [address] Consulting Physician Pulmonary Disease 11/21/15 Charlie Beverly DO [address] [facility] [address] [address] Gastroenterology 03/30/16 08/13/24 Tona Castellanos, POWDER AND PRIMER CANNING LEADER, GENERAL SURGERY PHYSICIAN ASSISTANT [address] [address] Nurse Practitioner Advanced Practice Nurse 08/03/1608/13/24 Kathryn Daniel MD #[address] [address] Obstetrics & Gynecology 05/16/17 Arjun Musa [address] [place] [address] [address] [place] [address] Radiation Oncologist Hematology 06/13/18 Bay Yin MD #[address] [phone] Consulting Physician Endocrinology 01/14/22 Dax Cervantes MD #[address] [address] Consulting Physician Colon and Rectal Surgery 07/23/22 Ramon Fitzgerald MD #2 [place] [address] Consulting Physician Neurology 05/13/23 documented as of this encounter
--- OUTSIDE RECORDS SUMMARY | 2024-09-24 09:18 | XMS_ITS | Encounter Summary ---
Author Organization [facility] Address [address] [place] [address] Phone Care Team Providers Care Shipping Point Inspector Name Role Phone Bret Koo MD Unavailable Atif Bernstein MD Unavailable [phone] Meche Coburn MD Unavailable [phone] Charlie Beverly DO Unavailable [phone] Tona Castellanos APRN, LITERACY EDUCATION PROFESSOR Unavailable Kathryn Daniel MD Unavailable Unavail able Arjun Musa Unavailable James Roach MD Primary Care Provider Bay Yin MD Unavailable Dax Cervantes MD Unavailable Ramon Fitzgerald MD Unavailable [phone] Reason for Visit * Reason Comments Medication Refill Encounter Details Date Type Department Care Team (Late st Contact Info) Description 10/26/2022 Refill [facility] - Family Medicine - [place] #2 [place] [address] James Roach MD #[address] [address] Medication Refill Social History Tobacco Use Types [...] file Not on file Not on file COVID-19 Exposure Response Date Recorded In the last 10 days, have yo u been in contact with someone who was confirmed or suspected to have Coronavirus/COVID-19? No / Unsure 10/21/2022 9:57 AM CDT documented as of this encounter Miscellaneous Notes * Telephone Encounter - Jessica Post RN - 10/26/2022 10:13 AM CDT Name from pharmacy: GABAPENTIN 100MG CAPSULES Will file in chart as: gabapentin (NEURONTIN) 100 MG Capsule The original prescription was discontinued on 07/21/2022 by James Roach MD for the following reason: Therapy completed. documented in this encounter Plan of Treatment Upcoming Encounters Date Type Department Care Team (Late st Contact Info) Description 01/09/2025 10:45 AM CDT Office Visit [facility] [place] [address] James Roach MD [address] [address] 03/22/2025 11:00 AM CDT Office Visit [facility] - Endocrinology [facility] [address] [place] [phone] Bay Yin MD [address] [address] [place] [address] documented as of this encounter Visit Diagnoses Not on filedocumented in this encounter Additional Health Concerns Assessment Noted Time PHQ-9 Depression Total Score: 0 04/09/20 19 3:00 PM CDT documented as of this encounter Care Teams Shipping Point Inspector Relationship Specialty Start Date End Date James Roach MD [address] [facility] [address] [place] [address] PCP - General Family Medicine 05/26/21 Bret Koo MD Consulting Physician Oncology 11/18/15 08/13/24 Atif Bernstein MD [address] [place] [address] Consulting Physician Radiation Oncology 11/19/15 Meche Coburn MD [address] [facility] [address] [facility] [address] [place], [place] [address] Consulting Physician Pulmonary Disease 11/21/15 Charlie Beverly DO [address] [facility] [address] [place] [address] Gastroenterology 03/30/16 08/13/24 Tona Castellanos APRN, LITERACY EDUCATION PROFESSOR [address] [facility] [address] [place] [address] Nurse Practitioner Advanced Practice Nurse 08/03/1608/13/24 Kathryn Daniel MD [address] [facility] [address] [place] [address] Obstetrics & Gynecology 05/16/17 Arjun Musa [address] [facility] [address] [place] [address] Radiation Oncologist Hematology 06/13/18 Bay Yin MD #[address] [address] Consulting Physician Endocrinology 01/14/22 Dax Cervantes MD #[address] [address] Consulting Physician Colon and Rectal Surgery 07/23/22 Ramon Fitzgerald MD #2 [place] [address] Consulting Physician Neurology 05/13/23 documented as of this encounter
--- OUTSIDE RECORDS SUMMARY | 2024-09-24 09:18 | XMS_ITS | Encounter Summary ---
Author Organization [facility] Address [address] [place] [address] Phone Care Team Providers Care Gutter Hanger Name Role Phone Bret Koo MD Unavailable Atif Bernstein MD Unavailable [phone] Meche Coburn MD Unavailable [phone] Charlie Beverly DO Unavailable [phone] Tona Castellanos APRN, WOODS OVERSEER Unavailable Kathryn Daniel MD Unavailable Unavail able Arjun Musa Unavailable James Roach MD Primary Care Provider Bay Yin MD Unavailable Dax Cervantes MD Unavailable Ramon Fitzgerald MD Unavailable [phone] Reason for Visit * Reason Comments Medication Refill Encounter Details Date Type Department Care Team (Late st Contact Info) Description 04/10/2024 Refill [facility] - General Surgery - [place] #[address] [address] Dax Cervantes MD #[address] [address] Medication Refill Social History Tobacco Use Types Packs/Day Years Used Date Smoking Tobacco: Former Cigarettes 1 20.1 1 997 - 07/27/2016 Smokeless Tobacco: Never Alcohol Use Standard Drinks/Week Comments No 0 (1 standard drink = 0.6 oz pur e alcohol) very rarely [facility] Utilities Answer Date Recorded In the [...] often do you attend chur ch or protestant services? 1 to 4 times per year 07/19/2023 Do you belong to any clubs o r organizations such as restoration groups, unions, fraternal or athletic groups, or [...] Answer Date Recorded PHQ-2 Score 0 02/16/2019 [facility] [place] of Occupat ional Health - Occupational Stress [...] place to sleep or slept in a half-way (including now)? No 07/19/2023 Education Answer Date [...] Encounter - Maria C Nelson RN - 04/10/2024 4:08 PM CDT Called patient who stated that she is taking OTC Nexium and is not requesting refill of omeprazole at this time. documented in this encounter Plan of Treatment Upcoming Encounters Date Type Department Care Team (Late st Contact Info) Description 01/09/2025 10:45 AM CDT Office Visit [facility] - Family Medicine - [place] #2 [place] [address] James Roach MD #2 [facility] [address] [place] [address] 03/22/2025 11:00 AM CDT Office Visit [facility] - Endocrinology - [place] #[address] [place] [address] Bay Yin MD #[address] [phone] documented as of this encounter Visit Diagnoses Diagnosis Radiation-induced esophageal stricture Stricture and stenosis of esophagus documented in this encounter Additional Health Concerns Assessment Noted Time PHQ-9 Depression Total Score: 0 04/09/20 19 3:00 PM CDT documented as of this encounter Care Teams Gutter Hanger Relationship Specialty Start Date End Date James Roach MD #[address] [address] PCP - General Family Medicine 05/26/21 Bret Koo MD Consulting Physician Oncology 11/18/15 08/13/24 Atif Bernstein MD [address] [place] [address] Consulting Physician Radiation Oncology 11/19/15 Meche Coburn MD [address] [facility] [address] [address] Consulting Physician Pulmonary Disease 11/21/15 Charlie Beverly DO [address] [facility] [address] [place] [address] Gastroenterology 03/30/16 08/13/24 Tona Castellanos APRN, WOODS OVERSEER [address] [facility] [address] [place] [address] Nurse Practitioner Advanced Practice Nurse 08/03/1608/13/24 Kathryn Daniel MD [address] [facility] [address] [facility] [address] [place] [address] Obstetrics & Gynecology 05/16/17 Arjun Musa [address] [facility] [address] [place] [address] Radiation Oncologist Hematology 06/13/18 Bay Yin MD #[address] [address] Consulting Physician Endocrinology 01/14/22 Dax Cervanets MD #[address] [address] Consulting Physician Colon and Rectal Surgery 07/23/22 Ramon Fitzgerald MD #2 [place] [address] Consulting Physician Neurology 05/13/23 documented as of this encounter
--- OUTSIDE RECORDS SUMMARY | 2024-09-24 09:18 | XMS_ITS | Encounter Summary ---
Author Organization [facility] Address [address] [place] [address] Phone Care Team Providers Care Events Traffic Controller Name Role Phone Bret Koo MD Unavailable Atif Bernstein MD Unavailable [phone] Meche Coburn MD Unavailable [phone] Charlie Beverly DO Unavailable [phone] Tona Castellanos APRN, CARE SUPPORT REPRESENTATIVE Unavailable [phone] Kathryn Daniel MD Unavailable Unavail able Arjun Musa Unavailable James Roach MD Primary Care Provider Bay Yin MD Unavailable Dax Cervantes MD Unavailable Ramon Fitzgerald MD Unavailable [phone] Reason for Visit * Reason Comments Medication Refill Encounter Details Date Type Department Care Team (Late st Contact Info) Description 08/29/2023 Refill [facility] - Family Medicine - [place] #2 [place] [address] James Roach MD #[address] [address] Medication Refill Social History Tobacco Use Types Packs/Day Years Used Date Smoking Tobacco: Former Cigarettes 1 20.1 1 997 - 07/27/2016 Smokeless Tobacco: Never Alcohol Use Standard Drinks/Week Comments No 0 (1 standard drink = 0.6 oz pur e alcohol) very rarely [facility] Utilities Answer Date Recorded In the [...] often do you attend chur ch or mu-ism services? 1 to 4 times per year 07/19/2023 Do you belong to any clubs o r organizations such as confucianist groups, unions, fraternal or athletic groups, or [...] Answer Date Recorded PHQ-2 Score 0 02/16/2019 [facility] [place] of Occupat ional Health - Occupational Stress [...] place to sleep or slept in a skilled nursing (including now)? No 07/19/2023 Education Answer Date [...] Telephone Encounter - Jessica Post RN - 08/30/2023 9:07 AM CDT Medication failed the protocol, provider to review and approve the medication order if appropriate. Requested Prescriptions Pending Prescriptions Disp Refills gabapentin (NEURONTIN) 100 MG Capsule [Pharmacy Med Name: GABAPENTIN 100MG CAPSULES] 90 Capsule 2 Sig: TAKE 1 CAPSULE BY MOUTH THREE TIMES DAILY FOR NERVE PAIN Not Delegated - Anticonvulsants Excluding Benzodiazepines Protocol Failed - 08/29/2023 9:57 PM Failed - This refill cannot be delegated Passed - Visit with relevant provider in past 12 months or upcoming 90 days Recent Visits Date Type Provider Dept 08/23/23 Office Visit James Roach MD [facility] 07/19/23 Office Visit James Roach MD [facility] 05/19/23 Office Visit Lenny Thornton MD [facility] 04/21/23 Telemedicine James Roach MD [facility] 04/12/23 Office Visit James Roach MD [facility] 03/08/23 Office Visit Jordin Heath APRN, CNP [facility] [place] 01/05/23 Office Visit James Roach MD [facility] 10/21/22 Office Visit James Roach MD [facility] [place] Showing recent visits within past 365 days and meeting all other requirements Future Appointments Date Type Provider Dept 10/18/23 Appointment James Roach MD [facility] Showing future appointments within next 90 days and meeting all other requirements documented in this encounter Plan of Treatment Upcoming Encounters Date Type Department Care Team (Late st Contact Info) Description 01/09/2025 10:45 AM CDT Office Visit [facility] Medical [facility] - Family Medicine - [place] #2 [place] [address] James Roach MD #2 [facility] [address] [place] [address] 03/22/2025 11:00 AM CDT Office Visit [facility] - Endocrinology - [place] #2 [place] [address] Bay Yin MD #[address] [phone] documented as of this encounter Visit Diagnoses Diagnosis Left hand paresthesia Disturbance of skin sensation documented in this encounter Additional Health Concerns Assessment Noted Time PHQ-9 Depression Total Score: 0 04/09/20 19 3:00 PM CDT documented as of this encounter Care Teams Events Traffic Controller Relationship Specialty Start Date End Date James Roach MD [address] [place] [address] PCP - General Family Medicine 05/26/21 Bret Koo MD Consulting Physician Oncology 11/18/15 08/13/24 Atif Bernstein MD [address] [place] [address] Consulting Physician Radiation Oncology 11/19/15 Meche Coburn MD [address] [facility] [address] [place] [address] Consulting Physician Pulmonary Disease 11/21/15 Charlie Beverly DO [address] [facility] [address] [place] [address] Gastroenterology 03/30/16 08/13/24 Tona Castellanos APRN, CARE SUPPORT REPRESENTATIVE [address] [facility] [address] [place] [address] Nurse Practitioner Advanced Practice Nurse 08/03/1608/13/24 Kathryn Daniel MD [address] [facility] [address] [place] [address] Obstetrics & Gynecology 05/16/17 Arjun Musa [address] [facility] [address] [place] [address] Radiation Oncologist Hematology 06/13/18 Bay Yin MD #[address] [address] Consulting Physician Endocrinology 01/14/22 Dax Cervantes MD #[address] [address] Consulting Physician Colon and Rectal Surgery 07/23/22 Ramon Fitzgerald MD #2 [place] [address] Consulting Physician Neurology 05/13/23 documented as of this encounter
[2024-09-24 12:35] LABS: Free T4 Free Thyroxine 1.96 ng/dL (0.78-2.19)
== END 2024-09-24 08:49 | disposition home or self-care (01) ==
LOC: ANHLAB 08:52
PROVIDERS: PCP Family Medicine
DX: E03.9 Hypothyroidism, unspecified (principal)
CPT/HCPCS: 36415; 84439; 84443

== ENCOUNTER 2024-10-29 09:43 | Outpatient (CLI) | payer OTHER, SELFPAY ==
--- NOTE | ~2024-10-29 | CT_ITS ---
Clinical Indication: Lung cancer CT Scan of the Chest with Contrast: Technique: Contiguous sections were acquired throughout the chest after intravenous administration of 75 cc of Omnipaque 350. Dose reduction technique was used on this scan by utilizing automated exposu re control and iterative reconstruction technique. The dose-length product (DLP) was 128.87 mGy-cm. COMPARISON: 07/16/2024 Findings: Stable hypodense soft tissue thickening with coarse areas of calcification in the right paratracheal stripe region and upper right mediastinum, which could reflect treated disease. 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 No aortic aneurysm or dissection. No pulmonary embolus seen. Moderate pericard ial effusion is unchanged. There is no evidence of pleural effusion. Stable postradiation change in the medial right upper lobe extending to the right hilum. Probable mil d to moderate emphysema of the upper lobes. Images through the upper abdomen reveal atrophic right kidney. Stable hyperenhancement of the central left hepatic lobe, likely related to underlying SVC obstruction.. Stable mixed lytic sclerotic lesio n of the junction of the sternal manubrium and sternal body. Impression: Overall, no significant interval change from prior exam. Stable treated disease and/or perforation ch pete in the right paratracheal stripe/right mediastinum with underlying obliteration/occlusion of the SVC. Stable postradiation change medial right upper lobe extending to the right hilum. Stable emphysematous change in the upper lobes. Stable sternal lesion which could reflect healing fracture versus possibly metastatic lesion. Stable pericardial effusion. Reviewed, dictated and finalized at location M. Impression: Overall, no significant interval change from prior exam. Stable treated disease and/or perforation change in the right paratracheal stripe/right mediastinum w ith underlying obliteration/occlusion of the SVC. Stable postradiation change medial right upper lobe extending to the right hilu m. Stable emphysematous change in the upper lobes. Stable sternal lesion which could reflect healing fracture versus possibly meta static lesion. Stable pericardial effusion.
--- OUTSIDE RECORDS SUMMARY | 2024-10-29 10:15 | XMS_ITS | Clinical Summary ---
Author Organization [facility] Address [address] [place] [address] Care Team Providers Care House Director Name Role Phone Unavailable Primary Care Provider [...] Screening with HPV 2001 Mammogram Screening 2011 Pneumococcal Vaccine: 50+ Ye ars (1 of 1 - PCV) 2021 Zoster Vaccines (1 of 2) 2021 COVID-19 [...]
--- OUTSIDE RECORDS SUMMARY | 2024-10-29 10:15 | XMS_ITS | Encounter Summary ---
Author Organization [facility] Address [address] [place] [address] Phone Care Team Providers Care Air Tucker Name Role Phone Bret Koo MD Unavailable Atif Bernstein MD Unavailable [phone] Meche Coburn MD Unavailable [phone] Charlie Beverly DO Unavailable [phone] Tona Castellanos ROLL CAPPER, TOBACCO SIZER Unavailable [phone] James Roach MD Primary Care Provider [phone] Kathryn Daniel MD Unavailable Unavail able Arjun Musa Unavailable Cody Musa MD Primary Care Provide r James Roach MD Primary Care Provider [phone] Bay Yin MD Unavailable Dax Cervantes MD Unavailable Ramon Fitzgerald MD Unavailable [phone] Reason for Visit * Reason Comments Medication Refill Encounter Details Date Type Department Care Team (Late st Contact Info) Description 04/01/2020 Refill [facility] #2 [place] [id number] James Roach MD #[address] [address] Medication Refill Social History Tobacco Use Types [...] [facility] - [facility] - [place] [address] [place] [address] Jmaes Roach MD #[address] [address] 03/22/2025 11:00 AM CDT Office Visit [facility] - Endocrinology - [place] [address] [place] [address] Bay Yin MD #2 [facility] [address] [place] [address] documented as of this encounter Visit Diagnoses Not on filedocumented in this encounter Additional Health Concerns Assessment Noted Time PHQ-9 Depression Total Score: 0 04/09/20 19 3:00 PM CDT documented as of this encounter Care Teams Air Tucker Relationship Specialty Start Date End Date James Roach MD #2 [facility] [address] [place] [address] PCP - General Family Medicine 11/15/16 08/12/20 Cody Musa MD [address], [place] [address] PCP - General Internal Medicine 08/13/20 05/25/21 James Roach MD #[address] [address] PCP - General Family Medicine 05/26/21 Bret Koo MD Consulting Physician Oncology 11/18/15 08/13/24 Atif Bernstein MD [address] [place] [address] Consulting Physician Radiation Oncology 11/19/15 Meche Coburn MD [address] [facility] [address] [place] [address] Consulting Physician Pulmonary Disease 11/21/15 Charlie Beverly DO [address] [facility] [address] [facility] [address] [place] [address] Gastroenterology 03/30/16 08/13/24 Tona Castellanos APRN, TOBACCO SIZER [address] [facility] [address] [facility] [address] [place] [address] Nurse Practitioner Advanced Practice Nurse 08/03/1608/13/24 Kathryn Daniel MD #[address] [address] Obstetrics & Gynecology 05/16/17 Arjun Musa [address] [place] [address] [address] [place] [address] Radiation Oncologist Hematology 06/13/18 Bay Yin MD #[address] [phone] Consulting Physician Endocrinology 01/14/22 Dax Cervantes MD #[address] [address] Consulting Physician Colon and Rectal Surgery 07/23/22 Ramon Fitzgerald MD #2 [place] [address] Consulting Physician Neurology 05/13/23 documented as of this encounter
--- OUTSIDE RECORDS SUMMARY | 2024-10-29 10:15 | XMS_ITS | Encounter Summary ---
Author Organization [facility] Address [address] [place] [address] Phone Care Team Providers Care Plumber'S Assistant Name Role Phone Bret Koo MD Unavailable Atif Bernstein MD Unavailable [phone] Meche Coburn MD Unavailable [phone] Charlie Beverly DO Unavailable [phone] Tona Castellanos APRN, SIX PACK LOADER OPERATOR Unavailable Kathryn Daniel MD Unavailable Unavail able Arjun Musa Unavailable James Roach MD Primary Care Provider Bay Yin MD Unavailable Dax Cervantes MD Unavailable Ramon Fitzgerald MD Unavailable [phone] Reason for Visit * Reason Comments Medication Refill Encounter Details Date Type Department Care Team (Late st Contact Info) Description 08/29/2023 Refill [facility] Family [facility] #2 [place] [address] James Roach MD #[address] [address] Medication Refill Social History Tobacco Use Types Packs/Day Years Used Date Smoking Tobacco: Former Cigarettes 1 20.1 1 997 - 07/27/2016 Smokeless Tobacco: Never Alcohol Use Standard Drinks/Week Comments No 0 (1 standard drink = 0.6 oz pur e alcohol) very rarely [facility] Utilities Answer Date Recorded In the past [...] often do you attend chur ch or advent services? 1 to 4 times per year 07/19/2023 Do you belong to any clubs o r organizations such as jewish groups, unions, fraternal or athletic groups, or [...] Answer Date Recorded PHQ-2 Score 0 02/16/2019 [facility] [place] of Occupat ional Health - Occupational Stress [...] place to sleep or slept in a usp (including now)? No 07/19/2023 Education Answer Date [...] Office Visit Jordin Heath APRN, CNP [facility] 01/05/23 Office Visit James Roach MD [facility] 10/21/22 Office Visit James Roach MD [facility] Showing recent visits within past 365 days and meeting all other requirements Future Appointments Date Type Provider Dept 10/18/23 Appointment James Roach MD [facility] Showing future appointments within next 90 days and meeting all other requirements documented in this encounter Plan of Treatment Upcoming Encounters Date Type Department Care Team (Late st Contact Info) Description 01/09/2025 10:45 AM CDT Office Visit [facility] - Family Medicine - [place] [address] [place] [address] James Roach MD #2 [facility] [address] [place] [address] 03/22/2025 11:00 AM CDT Office Visit [facility] - Endocrinology - [place] [address] [place] [address] Bay Yin MD #[address] [place] [address] documented as of this encounter Visit Diagnoses Diagnosis Left hand paresthesia Disturbance of skin sensation documented in this encounter Additional Health Concerns Assessment Noted Time PHQ-9 Depression Total Score: 0 04/09/20 19 3:00 PM CDT documented as of this encounter Care Teams Plumber'S Assistant Relationship Specialty Start Date End Date James Roach MD #2 [facility] [address] [place] [address] PCP - General Family Medicine 05/26/21 Bret Koo MD Consulting Physician Oncology 11/18/15 08/13/24 Atif Bernstein MD [address] [place] [address] Consulting Physician Radiation Oncology 11/19/15 Meche Coburn MD [address] [facility] [address] [facility] [address] [place] [address] Consulting Physician Pulmonary Disease 11/21/15 Charlie Beverly DO [address] [facility] [address] [place] [address] Gastroenterology 03/30/16 08/13/24 Tona Castellanos, PROJECT RESERVOIR ENGINEER, SIX PACK LOADER OPERATOR [address] [facility] [address] [facility] [address] [place] [address] Nurse Practitioner Advanced Practice Nurse 08/03/1608/13/24 Kathryn Daniel MD [address] [facility] [address] [place] [address] Obstetrics & Gynecology 05/16/17 Arjun Musa [address] [facility] [address] [place] [address] Radiation Oncologist Hematology 06/13/18 Bay Yin MD #[address] [address] Consulting Physician Endocrinology 01/14/22 Dax Cervantes MD #[address] [address] Consulting Physician Colon and Rectal Surgery 07/23/22 Ramon Fitzgerald MD #2 [place] [address] Consulting Physician Neurology 05/13/23 documented as of this encounter
--- OUTSIDE RECORDS SUMMARY | 2024-10-29 10:15 | XMS_ITS | Clinical Summary ---
Author Organization [facility] Address [address] [place] [address] Care Team Providers Care Employment Trainer Name Role Phone James Roach MD Primary Care Provider [phone] Allergies Active Allergy Reactions Criticality Noted Date Comments Penicillins Unknown,Nausea and Vomiting,Rash Low Medications amLODIPine (NORVASC) 5 mg tablet Take 10 mg by mouth daily . Active cholecalcifero l, Vitamin D3, 5,000 unit Capsule Take 5,000 Units by mouth daily. Active OTHERIndicatio ns:cannibus oil Provider please include Medication name, dose, route and frequency . Active ascorbic acid, vitamin C, (VITAMIN C) 500 mg tablet Take 500 mg by mouth daily. Active rema root, bulk, Powder by [facility].(Non-Drug ; Combo Route) route. Active turmeric root extract 500 mg Capsule Take by mouth. Activ e naloxone (NARCAN) 4 mg/spray [place], Non-Aerosol EMERGENCY USE ONLY: Administer 1 spray (4 mg) in one nostril one time. May repeat in alternating nostrils every 2-3 min until responsive or EMS arrives. 2 Each 3 10/19/19 20 Active mecobalamin, vitamin B12, 1,000 mcg Tablet, Chewable Take 1 Tablet by mouth every other day. Active ferrous sulfate 325 mg (65 mg iron) tablet Take 325 mg by mouth daily. Active lidocaine-pril ocaine (EMLA) 2.5-2.5 % CreamIndicatio ns:Adenocarcin jannet of lung, unspecified laterality (CMS/HCC),Non- small cell lung cancer, right (CMS/HCC) APPLY TO AFFECTED AREA TO PORT SITE 30 MINUTES PRIOR TO ACCESS 30 Gram 3 03/12/20 21 Active VITAMIN B COMPLEX ORAL Take by mouth. Ac tive umeclidinium (Incruse Ellipta) 62.5 mcg/actuation Disk with Device INHALE 1 PUFF BY MOUTH DAILY 30 Each 3 04/09/20 21 Active levothyroxine 100 mcg tablet Take 80 mcg by mouth daily. 10/08/19 22 Active allopurinoL (ZYLOPRIM) 100 mg tablet Take 100 mg by mouth daily. 11/10/19 22 Active hydroxychloroq uine (PLAQUENIL) 200 mg tablet Take 200 mg by mouth daily. Active hydroxychloroq uine (PLAQUENIL) 200 mg tablet Take 200 mg by mouth 2 times daily. Active alendronate (FOSAMAX) 70 mg tablet Take 1 Tablet by mouth every 7 days. 01/23/20 24 Active albuterol sulfate HFA 90 mcg/actuation aerosol inhalerIndicat ions:Non-small cell lung cancer, right (CMS/HCC),Shor tness of breath inhale 2 puffs by mouth every 6 hours as needed for shortness of breath 18 Gram 1 02/14/20 24 Active oxyCODONE (ROXICODONE) 5 mg tabletIndicati ons:Adenocarci noma of lung, unspecified laterality (CMS/HCC),Non- small cell lung cancer, right (CMS/HCC),Non- small cell lung cancer, unspecified laterality (CMS/HCC),Shor tness of breath Take 1 Tablet (5 mg) by mouth every 4 hours as needed for Pain. Max Daily Amount: 30 mg 100 Tablet 10/09/19 25 Active folic acid (FOLVITE) 1 mg tabletIndicati ons:Adenocarci noma of lung, unspecified laterality (CMS/HCC),Non- small cell lung cancer, right (CMS/HCC) TAKE 1 TABLET BY MOUTH EVERY DAY 30 Tablet 1 10/17/19 25 Active ALPRAZolam (XANAX) 0.25 mg tabletIndicati ons:Adenocarci noma of lung, unspecified laterality (CMS/HCC),Non- small cell lung cancer, right (CMS/HCC),Non- small cell lung cancer, unspecified laterality (CMS/HCC) Take 1 Tablet (0.25 mg) by mouth 2 times daily. 60 Tablet 10/17/19 25 Active temazepam (RESTORIL) 15 mg capsuleIndicat ions:Adenocarc inoma of lung, unspecified laterality (CMS/HCC),Non- small cell lung cancer, right (CMS/HCC),Non- small cell lung cancer, unspecified laterality (CMS/HCC),Shor tness of breath TAKE 1 CAPSULE BY MOUTH EVERY NIGHT NEEDED 30 Capsule 10/24/19 25 Active folic acid (FOLVITE) 1 mg tabletIndicati ons:Adenocarci noma of lung, unspecified laterality (CMS/HCC),Non- small cell lung cancer, right (CMS/HCC) Take 1 Tablet (1 mg) by mouth daily. 30 Tablet 1 08/22/19 25 025 Discontinued ALPRAZolam (XANAX) 0.25 mg tabletIndicati ons:Adenocarci noma of lung, unspecified laterality (CMS/HCC),Non- small cell lung cancer, right (CMS/HCC),Non- small cell lung cancer, unspecified laterality (CMS/HCC) Take 1 Tablet (0.25 mg) by mouth 2 times daily. 60 Tablet 09/13/19 25 025 Discontinued(R eorder) oxyCODONE (ROXICODONE) 5 mg tabletIndicati ons:Adenocarci noma of lung, unspecified laterality (CMS/HCC),Non- small cell lung cancer, right (CMS/HCC),Non- small cell lung cancer, unspecified laterality (CMS/HCC),Shor tness of breath Take 1 Tablet (5 mg) by mouth every 4 hours as needed for Pain. 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 Oncology and Hematology - [place] [address] Arjun Musa MD Adenocarcinoma of lung, unspecified laterality (CMS/HCC) 10/23/[address] [facility] Oncology and Hematology - [place] [address] Arjun Musa MD Adenocarcinoma of lung, unspecified laterality (CMS/HCC); Non-small cell lung cancer, right (CMS/HCC); Non-small cell lung cancer, unspecified laterality (CMS/HCC); Shortness of breath 10/16/[address] [facility] Oncology and Hematology - [place] [address] Arjun Musa MD Adenocarcinoma of lung, unspecified laterality (CMS/HCC); Non-small cell lung cancer, right (CMS/HCC); Non-small cell lung cancer, unspecified laterality (CMS/HCC) 10/16/[address] [facility] Oncology and Hematology - [place] [address] Arjun Musa MD 10/16/[address] [facility] Oncology and Hematology - [place] [address] Arjun Musa MD Adenocarcinoma of lung, unspecified laterality (CMS/HCC); Non-small cell lung cancer, right (CMS/HCC) 10/15/[address] [facility] Oncology and Hematology - [place] [address] [place] [phone] Arjun Musa MD Adenocarcinoma of lung, unspecified laterality (CMS/HCC) 10/08/[address] [facility] Oncology and Hematology - [place] [address] Karen Borja MD Adenocarcinoma of lung, unspecified laterality (CMS/HCC); Non-small cell lung cancer, right (CMS/HCC); Non-small cell lung cancer, unspecified laterality (CMS/HCC); Shortness of breath 10/01/[address] [facility] Oncology and Hematology - [place] [address] [place] [phone] Arjun Musa MD Adenocarcinoma of lung, unspecified laterality (CMS/HCC) 09/25/2024 External Device Data [facility] ABSTRACTION Provider, Abstract 09/24/2024 9:15 AM CDT Office Visit [facility] Oncology and Hematology [facility] [address] [place] [phone] Arjun Musa MD Adenocarcinoma of lung, unspecified laterality (CMS/HCC) 09/17/[address] [facility] Oncology and Hematology [facility] [address] [place] [phone] Arjun Musa MD Adenocarcinoma of lung, unspecified laterality (CMS/HCC) 09/14/[address] [facility] Oncology and Hematology [facility] [address] Arjun Musa MD Adenocarcinoma of lung, unspecified laterality (CMS/HCC); Non-small cell lung cancer, right (CMS/HCC); Non-small cell lung cancer, unspecified laterality (CMS/HCC); Shortness of breath 09/12/[address] [facility] Oncology and Hematology [facility] [address] [place] [address] Arjun Musa MD Adenocarcinoma of lung, unspecified laterality (CMS/HCC); Non-small cell lung cancer, right (CMS/HCC); Non-small cell lung cancer, unspecified laterality (CMS/HCC) 09/04/[address] [facility] Oncology and Hematology - [address] [place] [address] Arjun Musa MD 09/03/[address] [facility] Oncology and Hematology - [place] [address] Arjun Musa MD Adenocarcinoma of lung, unspecified laterality (CMS/HCC) (Primary Dx) 08/23/[address] [facility] Oncology and Hematology - [place] [address] Arjun Musa MD Adenocarcinoma of lung, unspecified laterality (CMS/HCC); Non-small cell lung cancer, right (CMS/HCC); Non-small cell lung cancer, unspecified laterality (CMS/HCC); Shortness of breath 08/21/[address] [facility] Oncology and Hematology - [place] [address] Arjun Musa MD Adenocarcinoma of lung, unspecified laterality (CMS/HCC); Non-small cell lung cancer, right (CMS/HCC); Non-small cell lung cancer, unspecified laterality (CMS/HCC); Shortness of breath 08/21/[address] [facility] Oncology and Hematology - [place] [address] Arjun Musa MD Adenocarcinoma of lung, unspecified laterality (CMS/HCC); Non-small cell lung cancer, right (CMS/HCC) 08/20/[address] [facility] Oncology and Hematology - [place] [address] Arjun Musa MD Adenocarcinoma of lung, unspecified laterality (CMS/HCC) 08/14/[address] [facility] Oncology and Hematology - [place] [address] Arjun Musa MD 08/13/[address] [facility] Oncology and Hematology - [place] [address] Arjun Musa MD 08/06/[address] [facility] Oncology and Hematology [facility] [address] [place] [address] Arjun Musa MD Adenocarcinoma of lung, unspecified laterality (CMS/HCC) 08/02/[address] [facility] Oncology and Hematology [facility] [address] [place] [address] Arjun Musa MD Adenocarcinoma of lung, unspecified laterality (CMS/HCC); Non-small cell lung cancer, right (CMS/HCC); Non-small cell lung cancer, unspecified laterality (CMS/HCC); Shortness of breath 08/01/[address] [facility] Oncology and Hematology [facility] [address] [place] [address] Arjun Musa MD Adenocarcinoma of lung, unspecified laterality (CMS/HCC); Non-small cell lung cancer, right (CMS/HCC); Non-small cell lung cancer, unspecified laterality (CMS/HCC); Shortness of breath from Last 3 Months Family History Medical [...] Sign Reading Time Taken Comments Blood Pressure 107/74 09/24/2024 9:34 AM CDT Pulse 97 09/24/2024 9:34 AM CDT Temperature 37.1 C (98.7 F) 09/24/2024 9:34 AM CDT Respiratory Rate 15 09/24/2024 9:34 AM CDT Oxygen Saturation 95% 09/24/2024 9:34 AM CDT Inhaled Oxygen Concentration - - Weight 54.4 kg (120 lb) 09/24/2024 9:34 AM CDT Height 167.6 cm (5' 6 ) 04/12/2022 11:45 AM CDT Body Mass Index 19.37 04/12/2022 11:45 AM CDT Plan of Treatment Upcoming Encounters Date Type Department Care Team (Late st Contact Info) Description 11/06/2024 9:30 AM CDT Office Visit [facility] Oncology and Hematology - [place] [address] [facility] [address] [place] [address] Arjun Musa MD [address] [facility] [address] [place] [address] Health Maintenance Due Date Last Done Comments [...] Procedure Name Priority Date/Time Associated Diagnosis Comments BASIC METABOLIC PANEL Routine 10/15/2024 2:33 PM CDT COMPREHENSIVE METABOLIC PANEL Routine 09/03/2024 1:41 PM CDT BASIC METABOLIC PANEL Routine 09/03/2024 11:30 AM CDT BASIC METABOLIC PANEL Routine 08/13/2024 2:41 PM SORORITY SUPERVISOR COMPREHENSIVE METABOLIC PANEL Routine 08/13/2024 10:48 AM SORORITY SUPERVISOR MAMMO SCREENING BILAT Routine 07/20/2023 2:50 PM SORORITY SUPERVISOR from Last 3 Months or Most Recently Relevant to Health Maintenance Results * BASIC METABOLIC PANEL (10/15/2024 2:33 PM CDT) Only the most recent of3 resultswithin the time period is included. Blood us Arjun Musa MD CHEMISTRY ORDERABLES Final Resu lt * COMPREHENSIVE METABOLIC PANEL (09/03/2024 1:41 PM CDT) Only the most recent of2 resultswithin the time period is included. Blood Arjun Musa MD CHEMISTRY ORDERABLES Final Resu lt * MAMMO SCREENING BILAT (07/20/2023 2:50 PM SORORITY SUPERVISOR) Anatomical Region Laterality Modality Breast Bilateral Mammography us Arjun Musa MD MAMMO ORDERABLES Final Result from Last 3 Months or Most Recently Relevant to Health Maintenance Insurance MEDICAID Care Teams Employment Trainer Relationship Specialty Start Date End Date James Roach MD [address] [place] [address] PCP - General Family Practice 09/14/21
--- OUTSIDE RECORDS SUMMARY | 2024-10-29 10:15 | XMS_ITS | Encounter Summary ---
Author Organization [facility] Address [address] [place] [address] Phone Care Team Providers Care Blast Hole Driller Name Role Phone Bret Koo MD Unavailable Atif Bernstein MD Unavailable [phone] Meche Coburn MD Unavailable [phone] Charlie Beverly DO Unavailable [phone] Tona Castellanos APRN, DIRECTOR OF GRADUATE MEDICAL EDUCATION Unavailable Kathryn Daniel MD Unavailable Unavail able Arjun Musa Unavailable James Roach MD Primary Care Provider Bay Yin MD Unavailable Dax Cervantes MD Unavailable Ramon Fitzgerald MD Unavailable [phone] Reason for Visit * Reason Comments Medication Refill Encounter Details Date Type Department Care Team (Late st Contact Info) Description 06/07/2023 Refill [facility] - [place] #2 [place] [address] Jordin Heath, REJI, DIRECTOR OF GRADUATE MEDICAL EDUCATION #[address] [address] Medication Refill Social History Tobacco Use Types [...] Dela Cruz RN - 06/07/2023 1:57 PM CLASSROOM TECHNOLOGY COACH Medication failed the protocol, provider to review [...] [place] 07/21/22 Office Visit James Roach MD [facility] [place] Showing recent visits within past 365 days and meeting all other requirements Future Appointments Date Type Provider Dept 07/19/23 Appointment James Roach MD [facility] Showing future appointments within next 90 days and meeting all other requirements SROOM TECHNOLOGY COACH documented in this encounter Plan of Treatment Upcoming Encounters Date Type Department Care Team (Late st Contact Info) Description 01/09/2025 10:45 AM CDT Office Visit [facility] - Family Medicine - [place] #[address] [place] [address] James Roach MD #2 [facility] [address] [place] [address] 03/22/2025 11:00 AM CDT Office Visit [facility] - Endocrinology - [place] #2 [facility] [place] [address] Bay Yin MD #[address] [place] [address] documented as of this encounter Visit Diagnoses Diagnosis Left hand paresthesia Disturbance of skin sensation documented in this encounter Additional Health Concerns Assessment Noted Time PHQ-9 Depression Total Score: 0 04/09/20 19 3:00 PM CDT documented as of this encounter Care Teams Blast Hole Driller Relationship Specialty Start Date End Date James Roach MD #[address] [address] PCP - General Family Medicine 05/26/21 Bret Koo MD Consulting Physician Oncology 11/18/15 08/13/24 Atif Bernstein MD [address] [place] [address] Consulting Physician Radiation Oncology 11/19/15 Meche Coburn MD [address] [place] [address] Consulting Physician Pulmonary Disease 11/21/15 Charlie Beverly DO [address] [place] [address] Gastroenterology 03/30/16 08/13/24 Tona Castellanos APRN, DIRECTOR OF GRADUATE MEDICAL EDUCATION [address] [place] [address] Nurse Practitioner Advanced Practice Nurse 08/03/1608/13/24 Kathryn Daniel MD [address] [place] [address] Obstetrics & Gynecology 05/16/17 Arjun Musa [address] [place] [address] [address] [place] [address] Radiation Oncologist Hematology 06/13/18 Bay Yin MD #[address] [address] Consulting Physician Endocrinology 01/14/22 Dax Cervantes MD #[address] [address] Consulting Physician Colon and Rectal Surgery 07/23/22 Ramon Fitzgerald MD #2 [place] [address] Consulting Physician Neurology 05/13/23 documented as of this encounter
--- OUTSIDE RECORDS SUMMARY | 2024-10-29 10:15 | XMS_ITS | Encounter Summary ---
Author Organization [facility] Address [address] [facility] [address] Phone Care Team Providers Care Director Employee Safety And Health Name Role Phone Bret Koo MD Unavailable Atif Bernstein MD Unavailable [phone] Meche Coburn MD Unavailable [phone] Charlie Beverly DO Unavailable [phone] Tona Castellanos FOREIGN STUDENT ADVISER, PIE BAKERY LABORER Unavailable Kathryn Daniel MD Unavailable Unavail able Arjun Musa Unavailable James Roach MD Primary Care Provider [phone] Bay Yin MD Unavailable Dax Cervantes MD Unavailable Ramon Fitzgerald MD Unavailable [phone] Encounter Details Date Type Department Care Team (Late st Contact Info) Description 07/19/2023 Transcribe Orders [facility] Services [address] [place] [address] Jinny Graff MD [address] [place] [address] [place] [address] Senile arthritis (Primary Dx); Right hand pain; Left hand pain; Squamous carcinoma of lung, left (HCC) Social History Tobacco Use Types Packs/Day Years Used Date Smoking Tobacco: Former Cigarettes 1 20.1 1 997 - 07/27/2016 Smokeless Tobacco: Never Alcohol Use Standard Drinks/Week Comments No 0 (1 standard drink = 0.6 oz pur e alcohol) very rarely [facility] Utilities Answer Date Recorded In the [...] often do you attend chur ch or caodaism services? 1 to 4 times per year 07/19/2023 Do you belong to any clubs o r organizations such as mormon groups, unions, fraternal or athletic groups, or [...] Answer Date Recorded PHQ-2 Score 0 02/16/2019 [facility] [place] of Occupat ional Health - Occupational Stress [...] of Assessment Author 0 07/19/2023 1:57 PM HAND GLUER AND SLICER [facility] * Q1: How often do you have a drink containing alcohol? Answer Date of Assessment Author Never 07/19/2023 1:57 PM HAND GLUER AND SLICER [facility] * Q2: How many drinks containing alcohol do you have on a typical day when you are drinking? Answer Date of Assessment Author Patient does not drink 07/19/2023 1:57 PM HAND GLUER AND SLICER [facility] [place] [facility] * Q3: How often do you have six or more drinks on one occasion? Answer Date of Assessment Author Never 07/19/2023 1:57 PM HAND GLUER AND SLICER [facility] * Question Answer [...] Description 01/09/2025 10:45 AM CDT Office Visit [facility] - Family Medicine [facility] #2 [place] [address] James Roach MD #2 [facility] [address] [place] [address] 03/22/2025 11:00 AM CDT Office Visit [facility] - Endocrinology [facility] #2 [place] [address] Bay Yin MD #2 [facility] [address] [place] [address] documented as of this encounter Results * CYCLIC CITRULLINATED PEPTIDE 3 (07/19/2023 3:12 PM HAND GLUER AND SLICER) CCP IGG 0.5 <3.0 U/mL 07/19/2023 9:2 2 PM HAND GLUER AND SLICER [facility] Blood Venipuncture / Unknown 07/19/2023 3:12 PM HAND GLUER AND SLICER 07/19/2023 3:29 PM HAND GLUER AND SLICER Narrative [facility] - 07/19/2023 9:22 PM HAND GLUER AND SLICER Antibody testing was performed by multiplex flow immunoassay on the BioPlex platform. Jinny Graff MD IMMUNOLOGY ORDERABLES Final Re sult Performing Organization Address City/[facility]/ZIP Co de Phone Number [facility] [address] [place] [address], [place] * ROSE SCREEN MULTIPLEX W/REFLEX JASON (07/19/2023 3:12 PM HAND GLUER AND SLICER) ROSE SCR MULTIPLEX Negative Negative, See comment 07/19/2023 9:22 PM HAND GLUER AND SLICER [facility] Blood Venipuncture / Unknown 07/19/2023 3:12 PM HAND GLUER AND SLICER 07/19/2023 3:29 PM HAND GLUER AND SLICER Narrative [facility] - 07/19/2023 9:22 PM HAND GLUER AND SLICER Antibody testing was performed by multiplex flow immunoassay on the BioPlex platform. Jinny Graff MD IMMUNOLOGY ORDERABLES Final Re sult Performing Organization Address [facility] Co de Phone Number [facility] [address] [place] [address], [place] documented in this encounter Visit Diagnoses Diagnosis Senile arthritis- Primary Osteoarthrosis, unspecified whether generalized or localized, unspecified site Right hand pain Pain in limb Left hand pain Pain in limb Squamous carcinoma of lung, left (HCC) documented in this encounter Additional Health Concerns Assessment Noted Time PHQ-9 Depression Total Score: 0 04/09/20 19 3:00 PM CDT documented as of this encounter Care Teams Director Employee Safety And Health Relationship Specialty Start Date End Date James Roach MD #[address] [address] PCP - General Family Medicine 05/26/21 Bret Koo MD Consulting Physician Oncology 11/18/15 08/13/24 Atif Bernstein MD [address] [place] [address] Consulting Physician Radiation Oncology 11/19/15 Meche Coburn MD [address] [facility] [address] [facility] [address] [place] [address] Consulting Physician Pulmonary Disease 11/21/15 Charlie Beverly, [address] [facility] [address] [address] Gastroenterology 03/30/16 08/13/24 Tona Castellanos APRN, PIE BAKERY LABORER [address] [facility] [address] [address] Nurse Practitioner Advanced Practice Nurse 08/03/1608/13/24 Kathryn Daniel MD [address] [address] Obstetrics & Gynecology 05/16/17 Arjun Musa [address] [facility] [address] [place] [address] Radiation Oncologist Hematology 06/13/18 Bay Yin MD #[address] [address] Consulting Physician Endocrinology 01/14/22 Dax Cervantes MD #[address] [address] Consulting Physician Colon and Rectal Surgery 07/23/22 Ramon Fitzgerald MD #2 [place] [address] Consulting Physician Neurology 05/13/23 documented as of this encounter
--- OUTSIDE RECORDS SUMMARY | 2024-10-29 10:15 | XMS_ITS | Clinical Summary ---
Author Organization [facility] Address [address] [place] [address] Phone Care Team Providers Care Shift Coordinator Name Role Phone Atif Bernstein MD Unavailable [phone] Meche Coburn MD Unavailable [phone] Kathryn Daniel MD Unavailable Unavail able Arjun Musa Unavailable James Roach MD Primary Care Provider [phone] Bay Yin MD Unavailable Dax Cervantes MD Unavailable Ramon Fitzgerald MD Unavailable [phone] Allergies Active Allergy Reactions Criticality Noted Date Comments Penicillin G Rash,Nausea,Vomiting Low 09/22/2015 As a child Penicillins Unknown 10/05/2016 Medications Blood Pressure Monitoring (BLOOD PRESSURE CUFF) MiscIndications:E ssential hypertension 1 Units by Does not apply route daily. 1 Each 7 Active Turmeric 500 MG Tablet Take by mouth. Activ e Severiano, Zingiber officinalis, (SEVERIANO ROOT PO) Take by mouth. Active ALPRAZolam (XANAX) 0.25 MG Tablet TAKE 1 TABLET BY MOUTH EVERY DAY 30 Tab 0 Active oxyCODONE (ROXICODONE) 5 MG Tablet Take 1 Tab by mouth every 4 hours as needed (pain). 100 Tab 0 Active temazepam (RESTORIL) 15 MG Capsule TAKE 1 CAPSULE BY MOUTH AT BEDTIME NEEDED FOR SLEEP 30 Cap 0 Active Ventolin HFA 108 (90 Base) MCG/ACT Aerosol Solution take 1-2 Puffs by inhalation every 4 hours as needed for Wheezing. 18 g 1 1 Active folic acid (FOLVITE) 1 MG Tablet TAKE 1 TABLET(1 MG) BY MOUTH DAILY 2 Active BIOTIN FORTE PO Take 1,000 mcg by mouth. Active Ferrous Sulfate (IRON PO) Take 65 mg by mouth daily. Active Milk Thistle 175 MG Tablet Take by mouth. Activ e Ascorbic Acid (VITAMIN C PO) Take 500 mg by mouth. Active [place] 3 1000 MG Capsule Take by mouth. Activ e DANDELION PO Take 1,040 mg by mouth. Active B Complex Vitamins (B COMPLEX PO) Take 100 mg by mouth. Active hydroxychloroquin e (PLAQUENIL) 200 MG Tablet Take 200 mg by mouth 2 times daily. Active naloxone HCl (Narcan) 4 MG/0.1ML Liquid 1 [place] by Nasal route as needed for Opioid Reversal. Administer in one nostril for symptoms of overdose (severe sleepiness, breathing problems, not responsive). Call 911. May repeat 1 spray in alternate nostril in 2-3 minutes if needed. 2 Each 4 Active allopurinol (ZYLOPRIM) 100 MG Tablet Take 1 Tablet by mouth daily. 90 Tablet 3 4 Active gabapentin (NEURONTIN) 100 MG CapsuleIndication s:Left hand paresthesia TAKE 1 CAPSULE BY MOUTH THREE TIMES DAILY FOR NERVE PAIN 90 Capsule 2 4 Active amLODIPine (NORVASC) 5 MG Tablet TAKE 1 TABLET BY MOUTH DAILY 90 Tablet 2 4 Active Incruse Ellipta 62.5 MCG/ACT AEROSOL POWDER, BREATH ACTIVATED INHALE 1 PUFF BY MOUTH DAILY 30 Each 10 4 Active alendronate (FOSAMAX) 70 MG Tablet Take 1 Tablet by mouth every 7 days. 12 Tablet 3 4 Active levothyroxine (SYNTHROID) 112 MCG Tablet TAKE 1 TABLET BY MOUTH DAILY 90 Tablet 1 5 Active Active Problems Problem Noted Date Diagnosed Date [...] Encounters Date Type Department Care Team Description 09/25/2024 Telephone [facility] #2 [place] [address] Bay Yin MD Results 09/20/2024 2:15 PM CDT Office Visit [facility] #2 [place] [address] Bay Yin MD Hypothyroidism, unspecified type (Primary Dx) Discharge Disposition: Discharged to home or Selfcare 09/20/2024 Travel 09/11/2024 10:00 AM CDT Office Visit [facility] #2 [place] [address] James Roach MD Osteoporosis without current pathological fracture, unspecified osteoporosis type (Primary Dx); Screening for colon cancer; Encounter for screening mammogram for breast cancer Discharge Disposition: Discharged to home or Selfcare 09/11/2024 Refill [facility] #2 [place] [address] Bay Yin MD Medication Refill 09/11/2024 Travel 09/06/2024 Refill [facility] #[address] [place] [address] James Roach MD Medication Refill from Last 3 Months Immunizations Immunization Administration Dates Next Due Pneumococcal Vaccine Adult - 23 Valent 5 Family History Medical History Relation Name [...] 0.6 oz pur e alcohol) very rarely [facility] Utilities Answer Date Recorded In the [...] often do you attend chur ch or sikhism services? 1 to 4 times per year 07/19/2023 Do you belong to any clubs o r organizations such as islam groups, unions, fraternal or athletic groups, or [...] Recorded Total Score - Questions 1-9 0 04/0 06/2024 [facility] [place] of Occupat ional Health - Occupational Stress [...] place to sleep or slept in a [place] health care facility (including now)? No 07/19/2023 Education Answer Date [...] [facility] #2 [place] [address] James Roach MD #2 [facility] [address] [place] [address] 03/22/2025 11:00 AM CDT Office Visit [facility] Medical [facility] - Endocrinology [facility] #2 [place] [address] Bay Yin MD #2 [facility] [address] [place] [address] Health Maintenance Due Date Last Done Comments [...] this topic Medical Devices Implanted Type Area Qa Manager Device Identifier Shelf Expiration Date Model / Serial / Lot Clip 235cm Resolution Implanted:Qty: 1 on 08/05/2022 by Dax Cervantes MD at [facility] N/A: Esophagus [employer] 09/21/2023 [id number] / [id number] / [id number] Procedures Procedure Name Priority Date/Time Associated Diagnosis Comments HEPATITIS PANEL ACUTE (AHP) 07/26/2022 12:00 AM BEAD SUPERVISOR ANSELMO SCREENING BILATERAL DIGITAL W CAD W AMMON Routine 05/15/2022 12:00 AM BEAD SUPERVISOR Encounter for screening mammogram for breast cancer COLOGUARD Routine 02/02/2022 7:40 AM CDT Screening for colon cancer PATHOLOGY CYTOLOGY CEMENTER MACHINE JOINER Routine 06/25/2011 from Last 3 Months or Most Recently Relevant to Health Maintenance Results * HEPATITIS PANEL ACUTE (AHP) (07/26/2022 12:00 AM BEAD SUPERVISOR) 07/26/2022 us Provider Scan HEMATOLOGY ORDERABLES Final Resu lt SCAN * ANSELMO SCREENING BILATERAL DIGITAL W CAD W AMMON (05/15/2022 12:00 AM BEAD SUPERVISOR) Anatomical Region Laterality Modality breast Bilateral Mammography 05/15/2022 James Edwar Roach MD [facility] MAMMO ORDERABLES Veronika l Result * COLOGUARD (02/02/2022 7:40 AM CDT) Cologuard Negative Negative [facility] [facility] Comment: NEGATIVE TEST RESULT. A negative [...] screened with both Cologuard and colonoscopy. (Shamar Hernandez et al, N Engl J Med 2014;370(14):2073-2044) The normal value (reference range) for this assay is negative. COLOGUARD RE-SCREENING RECOMMENDATION: Periodic colorectal cancer screening is an important part of preventive healthcare for asymptomatic individuals at average risk for colorectal cancer. Following a negative Cologuard result, the [place] Cancer Society and U.S. Multi-Society Task Force screening guidelines recommend a Cologuard re-screening interval of 3 years. References: [place] [employer] Guideline for Colorectal Cancer Screening: https://www.cancer.org/cancer/mtlbx-hdiftd-wubgrh/kmcyzuryt-xrzytoebn-oukjqgp/ acs-recommendations.html.; Corona KELLY, Gideon CASSIDY, Yulia YipK, Colorectal Cancer Screening: Recommendations for Physicians and Patients from the U.S. Multi-Society Task Force on Colorectal Cancer Screening , Am J Gastroenterology 2017; 112:0443-4881. TEST DESCRIPTION: Composite algorithmic analysis of stool [...] (Shamar Bowen al, N Engl J Med 2014;370(14):3699-7736.) Cologuard may produce a false negative or false positive result (no colorectal cancer or precancerous polyp present at colonoscopy follow up). A negative Cologuard test result does not guarantee the absence of CRC or advanced adenoma (pre-cancer). The current Cologuard screening interval is every 3 years. ([place] Cancer Society and U.S. Multi-Society Task Force). Cologuard performance data in a 10,000 patient pivotal study using colonoscopy as the reference method can be accessed at the following location: www.[employer]/results. Additional description of the Cologuard test process, warnings and precautions can be found at www.[employer].com. Stool 02/02/2022 7:40 AM CDT 02/03/2022 5:42 PM CDT James Roach MD BODY FLUIDS & STOOLS JOLENE FISHER Final Result [address] [place] [address], [employer] [address] [place] [address] * PATHOLOGY CYTOLOGY CEMENTER MACHINE JOINER (06/25/2011) Specimen of unknown material (specimen) Gisela Garcia MD PATHOLOGY/CYTOLOGY ORDERABLES Fi nal Result from Last 3 Months or Most Recently Relevant to Health Maintenance Insurance MEDICAID [employer] Care Teams Shift Coordinator Relationship Specialty Start Date End Date James Roach MD #[address] [address] PCP - General Family Medicine 05/26/21 Atif Bernstein MD [address] [place] [address] Consulting Physician Radiation Oncology 11/19/15 Meche Coburn MD [address] [facility] [address] [place] [address] Consulting Physician Pulmonary Disease 11/21/15 Kathryn Daniel MD [address] [facility] [address] [place] [address] Obstetrics & Gynecology 05/16/17 Arjun Musa [address] [facility] [address] [place] [address] Radiation Oncologist Hematology 06/13/18 Bay Yin MD #[address] [address] Consulting Physician Endocrinology 01/14/22 Dax Cervantes MD #[address] [address] Consulting Physician Colon and Rectal Surgery 07/23/22 Ramon Fitzgerald MD #2 [place] [address] Consulting Physician Neurology 05/13/23
--- OUTSIDE RECORDS SUMMARY | 2024-10-29 10:15 | XMS_ITS | Encounter Summary ---
Author Organization [facility] Address [address] [place] [address] Phone Care Team Providers Care Spinning Doffer Name Role Phone Bret Koo MD Unavailable Atif Bernstein MD Unavailable [phone] Meche Coburn MD Unavailable [phone] Charlie Beverly DO Unavailable [phone] Tona Castellanos APRN, TOOLS AND PARTS ATTENDANT Unavailable [phone] Kathryn Daniel MD Unavailable Unavail able Arjun Musa Unavailable James Roach MD Primary Care Provider Bay Yin MD Unavailable Dax Cervantes MD Unavailable Ramon Fitzgerald MD Unavailable [phone] Reason for Visit * Reason Comments Medication Refill Encounter Details Date Type Department Care Team (Late st Contact Info) Description 11/28/2023 Refill [facility] Family Medicine [facility] #2 [place] [address] James Roach MD #[address] [address] Medication Refill Social History Tobacco Use Types Packs/Day Years Used Date Smoking Tobacco: Former Cigarettes 1 20.1 1 997 - 07/27/2016 Smokeless Tobacco: Never Alcohol Use Standard Drinks/Week Comments No 0 (1 standard drink = 0.6 oz pur e alcohol) very rarely [facility] Utilities Answer Date Recorded In [...] often do you attend chur ch or jainism services? 1 to 4 times per year 07/19/2023 Do you belong to any clubs o r organizations such as tenriism groups, unions, fraternal or athletic groups, or [...] Answer Date Recorded PHQ-2 Score 0 02/16/2019 [facility] Occupat ional Health - Occupational Stress [...] 05/19/23 Office Visit Lenny Thornton MD [facility] [place] 04/21/23 Telemedicine James Roach MD [facility] 04/12/23 Office Visit James Roach MD [facility] [place] 03/08/23 Office Visit Jordin Heath APRN, CNP [facility] [place] 01/05/23 Office Visit James Roach MD [facility] [place] Showing recent visits [...] Description 01/09/2025 10:45 AM CDT Office Visit [facility] - Family Medicine - [place] #2 [place] [address] James Roach MD #[address] [address] 03/22/2025 11:00 AM CDT Office Visit [facility] - Endocrinology - [place] #2 [place] [address] Bay Yin MD #[address] [place] [address] documented as of this encounter Visit Diagnoses Diagnosis Left hand paresthesia Disturbance of skin sensation documented in this encounter Additional Health Concerns Assessment Noted Time PHQ-9 Depression Total Score: 0 04/09/20 19 3:00 PM CDT documented as of this encounter Care Teams Spinning Doffer Relationship Specialty Start Date End Date James Roach MD #2 [facility] [address] [place] [address] PCP - General Family Medicine 05/26/21 Bret Koo MD Consulting Physician Oncology 11/18/15 08/13/24 Atif Bernstein MD [address] [place] [address] Consulting Physician Radiation Oncology 11/19/15 Meche Coburn MD [address] [facility] [address] [facility] [address] [place] [address] Consulting Physician Pulmonary Disease 11/21/15 Charlie Beverly DO [address] [facility] [address] [facility] [address] [place] [address] Gastroenterology 03/30/16 08/13/24 Tona Castellanos APRN, TOOLS AND PARTS ATTENDANT [address] [facility] [address] [facility] [address] [place] [address] Nurse Practitioner Advanced Practice Nurse 08/03/1608/13/24 Kathryn Daniel MD [address] [facility] [address] [place] [address] Obstetrics & Gynecology 05/16/17 Arjun Musa [address] [facility] [address] [place] [address] Radiation Oncologist Hematology 06/13/18 Bay Yin MD #[address] [address] Consulting Physician Endocrinology 01/14/22 Dax Cervantes MD #[address] [address] Consulting Physician Colon and Rectal Surgery 07/23/22 Ramon Fitzgerald MD #2 [place] [address] Consulting Physician Neurology 05/13/23 documented as of this encounter
--- OUTSIDE RECORDS SUMMARY | 2024-10-29 10:15 | XMS_ITS | Encounter Summary ---
Author Organization [facility] Address [address] [place] [address] Phone Care Team Providers Care Kiln Setter Name Role Phone Atif Bernstein MD Unavailable [phone] Meche Coburn MD Unavailable [phone] Kathryn Daniel MD Unavailable Unavail able Arjun Musa Unavailable James Roach MD Primary Care Provider [phone] Bay Yin MD Unavailable Dax Cervantes MD Unavailable Ramon Fitzgerald MD Unavailable [phone] Reason for Visit * Reason Comments Medication Refill Encounter Details Date Type Department Care Team (Late st Contact Info) Description 09/06/2024 [facility]ill [facility] - Family Medicine [facility] #2 [place] [address] James Roach MD #[address] [address] Medication Refill Social History Tobacco Use Types Packs/Day Years Used Date Smoking Tobacco: Former Cigarettes 1 20.1 1 997 - 07/27/2016 Smokeless Tobacco: Never Alcohol Use Standard Drinks/Week Comments No 0 (1 standard drink = 0.6 oz pur e alcohol) very rarely [facility] Utilities Answer Date Recorded In the [...] often do you attend chur ch or worship services? 1 to 4 times per year 07/19/2023 Do you belong to any clubs o r organizations such as episcopal groups, unions, fraternal or athletic groups, or [...] Answer Date Recorded PHQ-2 Score 0 02/16/2019 [facility] of Occupat ional Health - Occupational Stress [...] place to sleep or slept in a custodial (including now)? No 07/19/2023 Education Answer Date [...] Description 01/09/2025 10:45 AM CDT Office Visit [facility] - Family Medicine [facility] #2 [place] [address] James Roach MD #2 [facility] [address] [place] [address] 03/22/2025 11:00 AM CDT Office Visit [facility] - Endocrinology - [place] #2 [place] [address] Bay Yin MD #[address] [address] documented as of this encounter Visit Diagnoses Not on filedocumented in this encounter Additional Health Concerns Assessment Noted Time PHQ-9 Depression Total Score: 0 04/09/20 19 3:00 PM CDT documented as of this encounter Care Teams Kiln Setter Relationship Specialty Start Date End Date James Roach MD #[address] [address] PCP - General Family Medicine 05/26/21 Atif Bernstein MD [address] [place] [address] Consulting Physician Radiation Oncology 11/19/15 Meche Coburn MD [address] [facility] [address] [address] Consulting Physician Pulmonary Disease 11/21/15 Kathryn Daniel MD [address] [facility] [address] [address] Obstetrics & Gynecology 05/16/17 Arjun Musa [address] [facility] [address] [place] [address] Radiation Oncologist Hematology 06/13/18 Bay Yin MD #[address] [address] Consulting Physician Endocrinology 01/14/22 Dax Cervantes MD #[address] [id number] Consulting Physician Colon and Rectal Surgery 07/23/22 Ramon Fitzgerald MD #2 [place] [address] Consulting Physician Neurology 05/13/23 documented as of this encounter
--- OUTSIDE RECORDS SUMMARY | 2024-10-29 10:15 | XMS_ITS | Encounter Summary ---
Author Organization [facility] Address [address] [place] [address] Phone Care Team Providers Care Clinical Rn Liaison Name Role Phone Bret Koo MD Unavailable Atif Bernstein MD Unavailable [phone] Meche Coburn MD Unavailable [phone] Charlie Beverly DO Unavailable [phone] Tona Castellanos APRN, MANAGER COMMODITIES Unavailable [phone] Kathryn Daniel MD Unavailable Unavail able Arjun Musa Unavailable James Roach MD Primary Care Provider Bay Yin MD Unavailable Dax Cervantes MD Unavailable Ramon Fitzgerald MD Unavailable [phone] Reason for Visit * Reason Comments Medication Refill Encounter Details Date Type Department Care Team (Late st Contact Info) Description 04/10/2024 Refill [facility] - General Surgery - [place] #[address] [address] Dax Cervantes MD #[address] [address] Medication Refill Social History Tobacco Use Types Packs/Day Years Used Date Smoking Tobacco: Former Cigarettes 1 20.1 1 997 - 07/27/2016 Smokeless Tobacco: Never Alcohol Use Standard Drinks/Week Comments No 0 (1 standard drink = 0.6 oz pur e alcohol) very rarely [facility] Utilities Answer Date Recorded In the [...] often do you attend chur ch or sabianist services? 1 to 4 times per year 07/19/2023 Do you belong to any clubs o r organizations such as gnosticist groups, unions, fraternal or athletic groups, or [...] Answer Date Recorded PHQ-2 Score 0 02/16/2019 [facility] of Occupat ional Health - Occupational Stress [...] place to sleep or slept in a chcf (including now)? No 07/19/2023 Education Answer Date [...] Description 01/09/2025 10:45 AM CDT Office Visit [facility] - Family Medicine - [place] #2 [place] [address] James Roach MD #2 [facility] 205 [place] [address] 03/22/2025 11:00 AM CDT Office Visit [facility] - Endocrinology - [place] #2 [place] [address] Bay Yin MD #[address] [address] documented as of this encounter Visit Diagnoses Diagnosis Radiation-induced esophageal stricture Stricture and stenosis of esophagus documented in this encounter Additional Health Concerns Assessment Noted Time PHQ-9 Depression Total Score: 0 04/09/20 19 3:00 PM CDT documented as of this encounter Care Teams Clinical Rn Liaison Relationship Specialty Start Date End Date James Roach MD #[address] [address] PCP - General Family Medicine 05/26/21 Bret Koo MD Consulting Physician Oncology 11/18/15 08/13/24 Atif Bernstein MD [address] [place] [address] Consulting Physician Radiation Oncology 11/19/15 Meche Coburn MD [address] [facility] [address] [facility] [address] [place], [place] [address] Consulting Physician Pulmonary Disease 11/21/15 Charlie Beverly DO [address] [facility] [address] [place] [address] Gastroenterology 03/30/16 08/13/24 Tona Castellanos APRN, MANAGER COMMODITIES [address] [facility] [address] [place] [address] Nurse Practitioner Advanced Practice Nurse 08/03/1608/13/24 Kathryn Daniel MD [address] [facility] [address] [facility] [address] [place] [address] Obstetrics & Gynecology 05/16/17 Arjun Musa [address] [facility] [address] [place] [address] Radiation Oncologist Hematology 06/13/18 Bay Yin MD #[address] [address] Consulting Physician Endocrinology 01/14/22 Dax Cervantes MD #[address] [address] Consulting Physician Colon and Rectal Surgery 07/23/22 Ramon Fitzgerald MD #2 [place] [address] Consulting Physician Neurology 05/13/23 documented as of this encounter
--- OUTSIDE RECORDS SUMMARY | 2024-10-29 10:15 | XMS_ITS | Clinical Summary ---
Author Organization [facility] Address [address] [address] Care Team Providers Care Electric Accounting Machine Operator Name Role Phone Alexandra Ramirez REJI-COMMERCIAL FRONT LOAD DRIVER Primary Care Provider Source Comments [facility],non-owned Affiliates and Associated Physician Practices is amultiple site organization consisting of ambulatory clinics and hospital sitesin [place], [place], [place] and [place]. This disclosure is being madepursuant to the Care Everywhere program and may not contain all information available regarding this patient. Last updated 18.[facility] Allergies Active Allergy Reactions Criticality Noted Date [...] on file Legal Sex Female 5:36 PM DRAW BENCH OPERATOR HELPER Gender Identity Not on file Sexual Orientation [...] 50+ (1 of 2 - PCV) 1989 ZOST[employer] [...] patient's age to complete this topic [place] [address] [place] [address] Care Teams Electric Accounting Machine Operator Relationship Specialty Start Date End Date Alexandra Ramirez, CAMPUS MONITOR-COMMERCIAL FRONT LOAD DRIVER [address] [facility] [address] [place] [id number] PCP - General 11/23/16
--- OUTSIDE RECORDS SUMMARY | 2024-10-29 10:15 | XMS_ITS | Encounter Summary ---
Author Organization [facility] Address [address] [place] [address] Care Team Providers Care Commercial Carpenter Name Role Phone James Roach MD Primary Care Provider [phone] Encounter Details Date Type Department Care Team (Late st Contact Info) Description 10/29/2024 Orders Only [facility] Oncology and Hematology [facility] [address] [place] [address] Arjun Musa MD [address] [place] [address] Adenocarcinoma of lung, unspecified laterality (CMS/HCC) Social History Tobacco Use Types Packs/Day Years Used Date Smoking Tobacco: Former Cigarettes Q uit: 06/13/2016 Smokeless Tobacco: Never Comments:Nicotine Patch Alcohol Use Standard Drinks/Week Comments [...] Description 11/06/2024 9:30 AM CDT Office Visit [facility] Oncology and Hematology [address] [place] [address] Arjun Musa MD [address] [place] [address] documented as of this encounter Visit Diagnoses Diagnosis Adenocarcinoma of lung, unspecified laterality (CMS/HCC) documented in this encounter Care Teams Commercial Carpenter Relationship Specialty Start Date End Date James Roach MD [address] [address] PCP - General Family Practice 09/14/21 documented as of this encounter
--- OUTSIDE RECORDS SUMMARY | 2024-10-29 10:15 | XMS_ITS | Encounter Summary ---
Author Organization [facility] Address [address] [place] [address] Phone Care Team Providers Care Children Counselor Name Role Phone Bret Koo MD Unavailable Atif Bernstein MD Unavailable [phone] Meche Coburn MD Unavailable [phone] Charlie Beverly DO Unavailable [phone] Tona Castellanos APRN, WAREHOUSE TEAM LEADER Unavailable Kathryn Daniel MD Unavailable Unavail able Arjun Musa Unavailable James Roach MD Primary Care Provider Bay Yin MD Unavailable Dax Cervantes MD Unavailable Ramon Fitzgerald MD Unavailable [phone] Reason for Visit * Reason Comments Medication Refill Encounter Details Date Type Department Care Team (Late st Contact Info) Description 10/26/2022 Refill [facility] - Family Medicine [facility] #2 [place] [address] James Roach MD #[address] [address] Medication Refill Social History Tobacco Use Types [...] Description 01/09/2025 10:45 AM CDT Office Visit [facility] - Family Medicine [facility] #2 [place] [address] James Roach MD #[address] [address] 03/22/2025 11:00 AM CDT Office Visit [facility] - Endocrinology [facility] #2 [place] [address] Bay Yin MD #2 [facility] [address] [place] [address] documented as of this encounter Visit Diagnoses Not on filedocumented in this encounter Additional Health Concerns Assessment Noted Time PHQ-9 Depression Total Score: 0 04/09/20 19 3:00 PM CDT documented as of this encounter Care Teams Children Counselor Relationship Specialty Start Date End Date James Roach MD #2 [facility] [address] [place] [address] PCP - General Family Medicine 05/26/21 Bert Koo MD Consulting Physician Oncology 11/18/15 08/13/24 Atif Bernstein MD [address]200 [place] [address] Consulting Physician Radiation Oncology 11/19/15 Meche Coburn MD [address] [facility] [address] [facility] 202 [place], [place] [address] Consulting Physician Pulmonary Disease 11/21/15 Charlie Beverly DO [address] [facility] [address] [facility] 202 [place] [address] Gastroenterology 03/30/16 08/13/24 Tona Castellanos APRN, WAREHOUSE TEAM LEADER [address] [facility] [address] [facility] 202 [place] [address] Nurse Practitioner Advanced Practice Nurse 08/03/1608/13/24 Kathryn Daniel MD [address] [facility] [address] [place] [address] Obstetrics & Gynecology 05/16/17 Arjun Musa 2227 [facility] [address] [place] [address] Radiation Oncologist Hematology 06/13/18 Bay Yin MD #[address] [address] Consulting Physician Endocrinology 01/14/22 Dax Cervantes MD #[address] [address] Consulting Physician Colon and Rectal Surgery 07/23/22 Ramon Fitzgerald MD #2 [place] [address] Consulting Physician Neurology 05/13/23 documented as of this encounter
--- OUTSIDE RECORDS SUMMARY | 2024-10-29 10:15 | XMS_ITS | Encounter Summary ---
Author Organization [facility] Address [address] [place] [address] Phone Care Team Providers Care Director Of Training Name Role Phone Bret Koo MD Unavailable Atif Bernstein MD Unavailable [phone] Meche Coburn MD Unavailable [phone] Charlie Beverly DO Unavailable [phone] Tona Castellanos APRN, MOTOR VEHICLE COMPLIANCE ANALYST Unavailable Kathryn Daniel MD Unavailable Unavail able Arjun Musa Unavailable James Roach MD Primary Care Provider [phone] Bay Yin MD Unavailable Dax Cervantes MD Unavailable Ramon Fitzgerald MD Unavailable [phone] Reason for Visit * Reason Comments Medication Refill Encounter Details Date Type Department Care Team (Late st Contact Info) Description 09/07/2022 Refill [facility] - General Surgery - [place] #[address] [address] Dax Cervantes MD #[address] [address] Medication Refill Social History Tobacco Use Types [...] 10:45 AM CDT Office Visit [facility] - Family Medicine [facility] #2 [place] [address] James Roach MD #2 [facility] 205 [place] [address] 03/22/2025 11:00 AM CDT Office Visit [facility] - Endocrinology - [place] #2 [place] [address] Bay Yin MD #2 [facility] [address] [place] [address] documented as of this encounter Visit Diagnoses Not on filedocumented in this encounter Additional Health Concerns Assessment Noted Time PHQ-9 Depression Total Score: 0 04/09/20 19 3:00 PM CDT documented as of this encounter Care Teams Director Of Training Relationship Specialty Start Date End Date James Roach MD #2 [facility] [address] [place] [address] PCP - General Family Medicine 05/26/21 Bret Koo MD Consulting Physician Oncology 11/18/15 08/13/24 Atif Bernstein MD [address] [place] [address] Consulting Physician Radiation Oncology 11/19/15 Meche Coburn MD 6810 [facility] [address] [place] [address] Consulting Physician Pulmonary Disease 11/21/15 Charlie Beverly DO 68[address] [facility] [address] [place] [address] Gastroenterology 03/30/16 08/13/24 Tona Castellanos, CULINARY INTERNSHIP, MOTOR VEHICLE COMPLIANCE ANALYST 68[address] [facility] [address] [place] [address] Nurse Practitioner Advanced Practice Nurse 08/03/1608/13/24 Kathryn Daniel MD [address] [facility] [address] [place] [address] Obstetrics & Gynecology 05/16/17 Arjun Musa 2[address] [facility] [address] [place] [address] Radiation Oncologist Hematology 06/13/18 Bay Yin MD #[address] [address] Consulting Physician Endocrinology 01/14/22 Dax Cervantes MD #[address] [address] Consulting Physician Colon and Rectal Surgery 07/23/22 Raomn Fitzgerald MD #2 [place] [address] Consulting Physician Neurology 05/13/23 documented as of this encounter
--- OUTSIDE RECORDS SUMMARY | 2024-10-29 10:15 | XMS_ITS | Encounter Summary ---
Author Organization [facility] Address [address] [place] [address] Care Team Providers Care Woodworking Belt Sander Name Role Phone James Roach MD Primary Care Provider [phone] Encounter Details Date Type Department Care Team (Late Contact Info) Description 12/08/2016 Chart Note [facility] Radiation Therapy [address] [place] [address] [place] [address] [place] [address] Social History Tobacco Use Types [...] Encounters Date Type Department Care Team (Late Contact Info) Description 11/06/2024 9:30 AM CDT Office Visit [facility] Oncology and Hematology - [place] [address] [facility] [address] [place] [address] Arjun Musa MD [address] [facility] [address] [place] [address] documented as of this encounter Visit Diagnoses Not on filedocumented in this encounter Care Teams Woodworking Belt Sander Relationship Specialty Start Date End Date James Roach MD [address] [address] PCP - General Family Practice 09/14/21 documented as of this encounter
--- OUTSIDE RECORDS SUMMARY | 2024-10-29 10:15 | XMS_ITS ---
Author Organization [facility] Address [address] [place] [address] Phone Care Team Providers Care Route Salesman Name Role Phone Atif Bernstein MD Unavailable [phone] Meche Coburn MD Unavailable [phone] Kathryn Daniel MD Unavailable Unavail able Arjun Musa Unavailable James Roach MD Primary Care Provider [phone] Bay Yin MD Unavailable Dax Cervantes MD Unavailable Ramon Fitzgerald MD Unavailable [phone] Active Problems Problem Noted Date Diagnosed Date [...]
--- OUTSIDE RECORDS SUMMARY | 2024-10-29 10:15 | XMS_ITS | Encounter Summary ---
Author Organization [facility] Address [address] [place] [address] Phone Care Team Providers Care Hairspring I Inspector Name Role Phone Bret Koo MD Unavailable Atif Bernstein MD Unavailable [phone] Meche Coburn MD Unavailable [phone] Charlie Beverly DO Unavailable [phone] Tona Castellanos SCORER HELPER, CAPITAL MARKETS SPECIALIST Unavailable [phone] James Roach MD Primary Care Provider Kathryn Daniel MD Unavailable Unavail able Arjun Musa Unavailable Cody Musa MD Primary Care Provide r James Roach MD Primary Care Provider [phone] Bay Yin MD Unavailable Dax Cervantes MD Unavailable Ramon Fitzgerald MD Unavailable [phone] Reason for Visit * Reason Comments Medication Refill Encounter Details Date Type Department Care Team (Late st Contact Info) Description 11/06/2019 Refill [facility] #2 [place] [address] James Roach MD #[address] [address] Medication Refill Social History Tobacco Use Types [...] months ago Chronic prescription benzodiazepine use [facility] James Roach MD 9 months ago Pericardial effusion [facility] James Roach MD 10 months ago Non-intractable vomiting with nausea, unspecified vomiting type [facility] James Pruitt MD 1 year ago Low TSH level [facility] James Pruitt MD 1 year ago Abdominal pain, unspecified abdominal location [facility] Jordin Heath APN, CAPITAL MARKETS SPECIALIST Upcoming Appointments Failed - This refill cannot be delegated Powered by [employer] - 11/06/2019 3:24 PM Information pending documented in this encounter Plan of Treatment Upcoming Encounters Date Type Department Care Team (Late st Contact Info) Description 01/09/2025 10:45 AM CDT Office Visit [facility] Medical [facility] - Family Medicine [facility] #2 [place] [address] James Roach MD #[address] [address] 03/22/2025 11:00 AM CDT Office Visit [facility] Endocrinology - [place] #2 [place] [address] Bay Yin MD #[address] [address] documented as of this encounter Visit Diagnoses Not on filedocumented in this encounter Additional Health Concerns Assessment Noted Time PHQ-9 Depression Total Score: 0 04/09/20 19 3:00 PM CDT documented as of this encounter Care Teams Hairspring I Inspector Relationship Specialty Start Date End Date James Roach MD #[address] [address] PCP - General Family Medicine 11/15/16 08/12/20 Cody Musa MD [address] [place] [address] PCP - General Internal Medicine 08/13/20 05/25/21 James Roach MD #[address] [address] PCP - General Family Medicine 05/26/21 Bret Koo MD Consulting Physician Oncology 11/18/15 08/13/24 Atif Bernstein MD [address] [place] [address] Consulting Physician Radiation Oncology 11/19/15 Meche Coburn MD [address] [facility] [address] [facility] 202 [place] [address] Consulting Physician Pulmonary Disease 11/21/15 Charlie Beverly DO [address] [facility] [address] [facility] 202 [place] [address] Gastroenterology 03/30/16 08/13/24 Tona Castellanos, SCORER HELPER, CAPITAL MARKETS SPECIALIST [address] [facility] [address] [facility] 202 [place] [address] Nurse Practitioner Advanced Practice Nurse 08/03/1608/13/24 Kathryn Daniel MD #[address] [address] Obstetrics & Gynecology 05/16/17 Arjun Musa [address] [place] [address] [address] [place] [address] Radiation Oncologist Hematology 06/13/18 Bay Yin MD #[address] [address] Consulting Physician Endocrinology 01/14/22 Dax Cervantes MD #[address] [address] Consulting Physician Colon and Rectal Surgery 07/23/22 Ramon Fitzgerald MD #2 [place] [address] Consulting Physician Neurology 05/13/23 documented as of this encounter
--- OUTSIDE RECORDS SUMMARY | 2024-10-29 10:15 | XMS_ITS ---
Author Organization [facility] Address [address] [place] [address] Phone Care Team Providers Care Lining Parts Sewer Name Role Phone Atif Bernstein MD Unavailable [phone] Meche Coburn MD Unavailable Kathryn Daniel MD Unavailable Unavail able Arjun Musa Unavailable James Roach MD Primary Care Provider [phone] Bay Yin MD Unavailable Dax Cervantes MD Unavailable Ramon Fitzgerald MD Unavailable [phone] [employer] Chronic Condition Monitoring Status:Enrolled (Active) Start date:05/25/2023 Enrollment date:05/26/2023 Current support & services provided:Hypertension Management Related social drivers of health:Intimate Partner Violence, Social Connections, Alcohol Use, Tobacco Use, Financial Resource Strain,Depression, Stress, Physical Activity, Food Insecurity, Transportation Needs, Housing Stability, Utilities Continued Care and Services Coordination
== END 2024-10-29 09:44 | disposition home or self-care (01) ==
PROVIDERS: PCP Family Medicine; Visit Provider Internal Medicine Hematology & Oncology
DX: C34.90 Malignant neoplasm of unspecified part of unspecified bronchus or lung (principal); I31.39 Other pericardial effusion (noninflammatory)
CPT/HCPCS: 71260; Q9967

== ENCOUNTER 2025-01-15 08:52 | Outpatient (CLI) | payer OTHER, SELFPAY ==
--- NOTE | ~2025-01-15 | MM_ITS ---
EXAMINATION: MM screening jama BI w shyam HISTORY: Screening TECHNIQUE: Craniocaudal and mediolateral oblique 3-D tomosynthesis images were obtained and synthetic 2-D images were generated. CAD analysis was submitted and interpreted. COMPARISON: Comparison to multiple prior studies sequentially, with oldest reviewed study dated 03/13. BREAST PARENCHYMAL COMPOSITION: There are scattered areas of fibroglandular density. FINDINGS: There is no evidence of suspicious mass, calcification, or architectural distortion to sug gest malignancy in either breast. IMPRESSION: 1. No mammographic evidence of malignancy. 2. Recommend routine screening mammography in one year. BI-RADS Category 1: Negative Reviewed, dictated and finalized at location B.
--- OUTSIDE RECORDS SUMMARY | 2025-01-15 09:04 | XMS_ITS | Encounter Summary ---
Author Organization [facility] Address [address] [place] [address] Phone Care Team Providers Care Pewter Finisher Name Role Phone Bret Koo MD Unavailable Atif Bernstein MD Unavailable [phone] Meche Coburn MD Unavailable [phone] Charlie Beverly DO Unavailable [phone] Tona Castellanos APRN, SUPERVISOR IN CIRCUIT TESTING Unavailable [phone] Kathryn Daniel MD Unavailable Unavail able Arjun Musa Unavailable James Roach MD Primary Care Provider Bay Yin MD Unavailable Dax Cervantes MD Unavailable Ramon Fitzgerald MD Unavailable [phone] Reason for Visit * Reason Comments Medication Refill Encounter Details Date Type Department Care Team (Late st Contact Info) Description 06/07/2023 [facility]ill [facility] Medicine - [place] #2 [place] [address] Jordin Heath, REJI, SUPERVISOR IN CIRCUIT TESTING #[address] [address] Medication Refill Social History Tobacco Use Types [...] Dela Cruz RN - 06/07/2023 1:57 PM LYFT DRIVER Medication failed the protocol, provider to review [...] [place] 07/21/22 Office Visit James Roach MD [facility] [place] Showing recent visits within past 365 days and meeting all other requirements Future Appointments Date Type Provider Dept 07/19/23 Appointment James Roach MD [facility] Showing future appointments within next 90 days and meeting all other requirements DRIVER documented in this encounter Plan of Treatment Upcoming Encounters Date Type Department Care Team (Late st Contact Info) Description 01/15/2025 4:00 PM CDT Office Visit [facility] Medical [facility] - [facility] #2 [place] [address] James Roach MD #2 [facility] [address] [place] [address] 03/22/2025 11:00 AM CDT Office Visit [facility] - Endocrinology - [place] #2 [place] [address] Bay Yin MD #[address] [place] [address] documented as of this encounter Visit Diagnoses Diagnosis Left hand paresthesia Disturbance of skin sensation documented in this encounter Additional Health Concerns Assessment Noted Time PHQ-9 Depression Total Score: 0 04/09/20 19 3:00 PM CDT documented as of this encounter Care Teams Pewter Finisher Relationship Specialty Start Date End Date James Roach MD #[address] [address] PCP - General Family Medicine 05/26/21 Bret Koo MD Consulting Physician Oncology 11/18/15 08/13/24 Atif Bernstein MD [address] [place] [address] Consulting Physician Radiation Oncology 11/19/15 Meche Coburn MD [address] [place] [address] Consulting Physician Pulmonary Disease 11/21/15 Charlie Beverly DO [address] [place] [address] Gastroenterology 03/30/16 08/13/24 Tona Castellanos APRN, SUPERVISOR IN CIRCUIT TESTING [address] [place] [address] Nurse Practitioner Advanced Practice Nurse 08/03/1608/13/24 Kathryn Daniel MD [address] [place] [address] Obstetrics & Gynecology 05/16/17 Arjun Musa [address] [place] [address] [address] [place] [address] Radiation Oncologist Hematology 06/13/18 Bay Yin MD #[address] [address] Consulting Physician Endocrinology 01/14/22 Dax Cervantes MD #[address] [address] Consulting Physician Colon and Rectal Surgery 07/23/22 Ramon Fitzgerald MD #2 [place] [address] Consulting Physician Neurology 05/13/23 documented as of this encounter
--- OUTSIDE RECORDS SUMMARY | 2025-01-15 09:04 | XMS_ITS | Encounter Summary ---
Author Organization [facility] Address [address] [place] [address] Care Team Providers Care Oil Recovery Unit Operator Name Role Phone James Roach MD Primary Care Provider [phone] Encounter Details Date Type Department Care Team (Late Contact Info) Description 12/08/2016 Chart Note [facility] Radiation Therapy [address] [place] [address] [place] [address] [place] [address] Social History Tobacco Use Types [...] Department Care Team (Late Contact Info) Description 02/01/2025 10:00 AM CDT Office Visit [facility] Oncology and Hematology - [place] [address] [facility] [address] [place] [address] Arjun Musa MD [address] [facility] [address] [place] [address] documented as of this encounter Visit Diagnoses Not on filedocumented in this encounter Care Teams Oil Recovery Unit Operator Relationship Specialty Start Date End Date James Roach MD [address] [address] PCP - General Family Practice 09/14/21 documented as of this encounter
--- OUTSIDE RECORDS SUMMARY | 2025-01-15 09:04 | XMS_ITS | Encounter Summary ---
Author Organization [facility] Address [address] [place] [address] Phone Care Team Providers Care Skip Tracer Name Role Phone Bret Koo MD Unavailable Atif Bernstein MD Unavailable [phone] Meche Coburn MD Unavailable [phone] Charlie Beverly DO Unavailable [phone] Tona Castellanos APRN, STEEL ERECTING PUSHER Unavailable [phone] James Roach MD Primary Care Provider [phone] Kathryn Daniel MD Unavailable Unavail able Arjun Musa Unavailable Cody Musa MD Primary Care Provide r James Roach MD Primary Care Provider [phone] Bay Yin MD Unavailable Dax Cervantes MD Unavailable Ramon Fitzgerald MD Unavailable [phone] Reason for Visit * Reason Comments Medication Refill Encounter Details Date Type Department Care Team (Late st Contact Info) Description 04/01/2020 Refill [facility] #2 [place] [address] James Roach MD #[address] [address] Medication Refill Social History Tobacco Use Types [...] Description 01/15/2025 4:00 PM CDT Office Visit [facility] - Family Medicine - [place] #2 [place] [address] James Roach MD #[address] [address] 03/22/2025 11:00 AM CDT Office Visit [facility] - Endocrinology - [place] #2 [place] [address] Bay Yin MD #2 [facility] [address] [place] [address] documented as of this encounter Visit Diagnoses Not on filedocumented in this encounter Additional Health Concerns Assessment Noted Time PHQ-9 Depression Total Score: 0 04/09/20 19 3:00 PM CDT documented as of this encounter Care Teams Skip Tracer Relationship Specialty Start Date End Date James Roach MD #2 [facility] 205 [place] [address] PCP - General Family Medicine 11/15/16 08/12/20 Cody Musa MD [address] [place], [place] [address] PCP - General Internal Medicine 08/13/20 05/25/21 James Roach MD #[address] [address] PCP - General Family Medicine 05/26/21 Bret Koo MD Consulting Physician Oncology 11/18/15 08/13/24 Atif Bernstein MD [address] [place] [address] Consulting Physician Radiation Oncology 11/19/15 Meche Coburn MD 6810 [facility] [address] [place] [address] Consulting Physician Pulmonary Disease 11/21/15 Charlie Beverly DO [address] [facility] [address] [facility] [address] [place] [address] Gastroenterology 03/30/16 08/13/24 Tona Castellanos APRN, STEEL ERECTING PUSHER [address] [facility] [address] [facility] [address] [place] [address] Nurse Practitioner Advanced Practice Nurse 08/03/1608/13/24 Kathryn Daniel MD #[address] [address] Obstetrics & Gynecology 05/16/17 Arjun Musa [address] [place] [address] [address] [place] [address] Radiation Oncologist Hematology 06/13/18 Bay Yin MD #[address] [address] Consulting Physician Endocrinology 01/14/22 Dax Cervantes MD #[address] [address] Consulting Physician Colon and Rectal Surgery 07/23/22 Ramon Fitzgerald MD #2 [place] [address] Consulting Physician Neurology 05/13/23 documented as of this encounter
--- OUTSIDE RECORDS SUMMARY | 2025-01-15 09:04 | XMS_ITS | Encounter Summary ---
Author Organization [facility] Address [address] [place] [address] Phone Care Team Providers Care City Constable Name Role Phone Atif Bernstein MD Unavailable [phone] Meche Coburn MD Unavailable [phone] Kathryn Daniel MD Unavailable Unavail able Arjun Musa Unavailable James Roach MD Primary Care Provider [phone] Bay Yin MD Unavailable Dax Cervantes MD Unavailable Ramon Fitzgerald MD Unavailable [phone] Reason for Visit * Reason Comments Medication Refill Encounter Details Date Type Department Care Team (Late st Contact Info) Description 09/06/2024 Refill [facility] - Family Medicine [facility] #2 [place] [address] James Roach MD #[address] [address] Medication Refill Social History Tobacco Use Types Packs/Day Years Used Date Smoking Tobacco: Former Cigarettes 1 20.1 1 997 - 07/27/2016 Smokeless Tobacco: Never Alcohol Use Standard Drinks/Week Comments No 0 (1 standard drink = 0.6 oz pur e alcohol) very rarely [facility] Utilities Answer Date Recorded In the past 12 months has th e electric, gas, oil, or water company threatened to shut off services in your home? No 07/19/2023 Social Connection and Isolation Panel Answer Date Recorded In a typical week, how many times do you talk on the phone with family, friends, or neighbors? Three times a week 07/19/19 How often do you get togethe r with friends or relatives? Patient declined 07/19/2023 How often do you attend [facility] or rastafarian services? 1 to 4 times [...] Answer Date Recorded PHQ-2 Score 0 02/16/2019 [facility] of Occupat ional Health - Occupational [...] place to sleep or slept in a fci (including now)? No 07/19/2023 Education Answer Date [...] Description 01/15/2025 4:00 PM CDT Office Visit [facility] Medical [facility] - Family Medicine [facility] #2 [place] [address] James Roach MD #2 [facility] [address] [place] [address] 03/22/2025 11:00 AM CDT Office Visit [facility] - Endocrinology - [place] #2 [place] [address] Bay Yin MD #[address] [address] documented as of this encounter Visit Diagnoses Not on filedocumented in this encounter Additional Health Concerns Assessment Noted Time PHQ-9 Depression Total Score: 0 04/09/20 19 3:00 PM CDT documented as of this encounter Care Teams City Constable Relationship Specialty Start Date End Date James Roach MD #[address] [address] PCP - General Family Medicine 05/26/21 Atif Bernstein MD [address] [place] [address] Consulting Physician Radiation Oncology 11/19/15 Meche Coburn MD [address] [facility] [address] [address] Consulting Physician Pulmonary Disease 11/21/15 Kathryn Daniel MD [address] [facility] [address] [address] Obstetrics & Gynecology 05/16/17 Arjun Musa [address] [facility] [address] [place] [address] Radiation Oncologist Hematology 06/13/18 Bay Yin MD #[address] [address] Consulting Physician Endocrinology 01/14/22 Dax Cervantes MD #[address] [address] Consulting Physician Colon and Rectal Surgery 07/23/22 Ramon Fitzgerald MD #2 [place] [address] Consulting Physician Neurology 05/13/23 documented as of this encounter
--- OUTSIDE RECORDS SUMMARY | 2025-01-15 09:04 | XMS_ITS | Encounter Summary ---
Author Organization [facility] Address [address] [place] [address] Phone Care Team Providers Care Finisher Merchant Products Name Role Phone Bret Koo MD Unavailable Atif Bernstein MD Unavailable [phone] Meche Coburn MD Unavailable [phone] Charlie Beverly DO Unavailable [phone] Tona Castellanos APRN, PLASMA PROCESSING CENTRIFUGE OPERATOR Unavailable Kathryn Daniel MD Unavailable Unavail able Arjun Musa Unavailable James Roach MD Primary Care Provider Bay Yin MD Unavailable Dax Cervantes MD Unavailable Ramon Fitzgerald MD Unavailable [phone] Reason for Visit * Reason Comments Medication Refill Encounter Details Date Type Department Care Team (Late st Contact Info) Description 10/26/2022 Refill [facility] - Family Medicine [facility] #2 [place] [address] James Roach MD #[address] [address] Medication Refill Social History Tobacco Use Types [...] Description 01/15/2025 4:00 PM CDT Office Visit [facility] - Family Medicine [facility] #[address] [place] [address] James Roach MD #[address] [address] 03/22/2025 11:00 AM CDT Office Visit [facility] - Endocrinology [facility] #[address] [place] [address] Bay Yin MD #2 [facility] [address] [place] [address] documented as of this encounter Visit Diagnoses Not on filedocumented in this encounter Additional Health Concerns Assessment Noted Time PHQ-9 Depression Total Score: 0 04/09/20 19 3:00 PM CDT documented as of this encounter Care Teams Finisher Merchant Products Relationship Specialty Start Date End Date James Roach MD #2 [facility] 205 [place] [address] PCP - General Family Medicine 05/26/21 Bret Koo MD Consulting Physician Oncology 11/18/15 08/13/24 Atif Bernstein MD [address] [place] [address] Consulting Physician Radiation Oncology 11/19/15 Meche Coburn MD [address] [facility] [address] [facility] [address] [place], [place] [address] Consulting Physician Pulmonary Disease 11/21/15 Charlie Beverly DO [address] [facility] [address] [facility] [address] [place] [address] Gastroenterology 03/30/16 08/13/24 Tona Castellanos APRN, PLASMA PROCESSING CENTRIFUGE OPERATOR [address] [facility] [address] [facility] [address] [place] [address] Nurse Practitioner Advanced Practice Nurse 08/03/1608/13/24 Kathryn Daniel MD [address] [facility] [address] [place] [address] Obstetrics & Gynecology 05/16/17 Arjun Musa [address] [facility] [address] [place] [address] Radiation Oncologist Hematology 06/13/18 Bay Yin MD #[address] [address] Consulting Physician Endocrinology 01/14/22 Dax Cervantes MD #[address] [address] Consulting Physician Colon and Rectal Surgery 07/23/22 Ramon Fitzgerald MD #2 [place] [address] Consulting Physician Neurology 05/13/23 documented as of this encounter
--- OUTSIDE RECORDS SUMMARY | 2025-01-15 09:04 | XMS_ITS ---
Author Organization [facility] Address [address] [place] [address] Phone Care Team Providers Care Branch Service Specialist Name Role Phone Atif Bernstein MD Unavailable [phone] Meche Coburn MD Unavailable [phone] Kathryn Daniel MD Unavailable Unavail able Arjun Musa Unavailable James Roach MD Primary Care Provider [phone] Bay Yin MD Unavailable Dax Cervantes MD Unavailable Ramon Fitzgerald MD Unavailable [phone] Active Problems Problem Noted Date Diagnosed Date [...]
--- OUTSIDE RECORDS SUMMARY | 2025-01-15 09:04 | XMS_ITS | Encounter Summary ---
Author Organization [facility] Address [address] [place] [address] Phone Care Team Providers Care Catalogue Librarian Name Role Phone Bret Koo MD Unavailable Atif Bernstein MD Unavailable [phone] Meche Coburn MD Unavailable [phone] Charlie Beverly DO Unavailable [phone] Tona Castellanos APRN, CLAIMS ASSISTANT Unavailable Kathryn Daniel MD Unavailable Unavail able Arjun Musa Unavailable James Roach MD Primary Care Provider Bay Yin MD Unavailable Dax Cervantes MD Unavailable Ramon Fitzgerald MD Unavailable [phone] Reason for Visit * Reason Comments Medication Refill Encounter Details Date Type Department Care Team (Late st Contact Info) Description 11/28/2023 Refill [facility] - Family Medicine [facility] #2 [place] [address] James Roach MD #[address] [address] Medication Refill Social History Tobacco Use Types Packs/Day Years Used Date Smoking Tobacco: Former Cigarettes 1 20.1 1 997 - 07/27/2016 Smokeless Tobacco: Never Alcohol Use Standard Drinks/Week Comments No 0 (1 standard drink = 0.6 oz pur e alcohol) very rarely [facility] Utilities Answer Date Recorded In the [...] declined 07/19/2023 How often do you attend [facility] or voodoo services? 1 to 4 times per year [...] Answer Date Recorded PHQ-2 Score 0 02/16/2019 [facility] [place] of Occupat ional Health - Occupational Stress [...] place to sleep or slept in a group home (including now)? No 07/19/2023 Education Answer Date [...] Dept 10/18/23 Office Visit James Roach MD [facility] 08/23/23 Office Visit James Roach MD [facility] 07/19/23 Office Visit James Roach MD [facility] 05/19/23 Office Visit Lenny Thornton MD [facility] 04/21/23 Telemedicine James Roach MD [facility] 04/12/23 Office Visit James Roach MD [facility] 03/08/23 Office Visit Jordin Heath APRN, CNP [facility] [place] 01/05/23 Office Visit James Roach MD [facility] Showing recent visits within past 365 days and meeting all other requirements Future Appointments Date Type Provider Dept 02/07/24 Appointment James Roach MD [facility] Showing future appointments within next 90 days and meeting all other requirements documented in this encounter Plan of Treatment Upcoming Encounters Date Type Department Care Team (Late st Contact Info) Description 01/15/2025 4:00 PM CDT Office Visit [facility] - Family Medicine - [place] #2 [place] [address] James Roach MD #2 [facility] [address] [place] [address] 03/22/2025 11:00 AM CDT Office Visit [facility] - Endocrinology - [place] #2 [place] [address] Bay Yin MD #2 [facility] [address] [place] [address] documented as of this encounter Visit Diagnoses Diagnosis Left hand paresthesia Disturbance of skin sensation documented in this encounter Additional Health Concerns Assessment Noted Time PHQ-9 Depression Total Score: 0 04/09/20 19 3:00 PM CDT documented as of this encounter Care Teams Catalogue Librarian Relationship Specialty Start Date End Date James Roach MD #2 [facility] [address] [place] [address] PCP - General Family Medicine 05/26/21 Bret Koo MD Consulting Physician Oncology 11/18/15 08/13/24 Atif Bernstein MD [address] [place] [address] Consulting Physician Radiation Oncology 11/19/15 Meche Coburn MD [address] [facility] [address] [place] [address] Consulting Physician Pulmonary Disease 11/21/15 Cahrlie Beverly DO [address] [place] [address] Gastroenterology 03/30/16 08/13/24 Tona Castellanos, GREEN MARKETING ANALYST, CLAIMS ASSISTANT [address] [place] [address] Nurse Practitioner Advanced Practice Nurse 08/03/1608/13/24 Kathryn Daniel MD [address] [place] [address] Obstetrics & Gynecology 05/16/17 Arjun Musa 2[address] [facility] [address] [place] [address] Radiation Oncologist Hematology 06/13/18 Bay Yin MD #[address] [address] Consulting Physician Endocrinology 01/14/22 Dax Cervantes MD #[address] [address] Consulting Physician Colon and Rectal Surgery 07/23/22 Ramon Fitzgerald MD #2 [place] [address] Consulting Physician Neurology 05/13/23 documented as of this encounter
--- OUTSIDE RECORDS SUMMARY | 2025-01-15 09:04 | XMS_ITS | Encounter Summary ---
Author Organization [facility] Address [address] [place] [address] Phone Care Team Providers Care Conference Translator Name Role Phone Bret Koo MD Unavailable Atif Bernstein MD Unavailable [phone] Meche Coburn MD Unavailable [phone] Charlie Beverly DO Unavailable [phone] Tona Castellanos APRN, BOOM TENDER Unavailable Kathryn Daniel MD Unavailable Unavail able Arjun Musa Unavailable James Roach MD Primary Care Provider Bay Yin MD Unavailable Dax Cervantes MD Unavailable Ramon Fitzgerald MD Unavailable [phone] Reason for Visit * Reason Comments Medication Refill Encounter Details Date Type Department Care Team (Late st Contact Info) Description 04/10/2024 [facility]ill [facility] - General Surgery - [place] #[address] [address] Dax Cervantes MD #[address] [address] Medication Refill Social History Tobacco Use Types Packs/Day Years Used Date Smoking Tobacco: Former Cigarettes 1 20.1 1 997 - 07/27/2016 Smokeless Tobacco: Never Alcohol Use Standard Drinks/Week Comments No 0 (1 standard drink = 0.6 oz pur e alcohol) very rarely [facility] Utilities Answer Date Recorded In [...] declined 07/19/2023 How often do you attend [facility] or taoism services? 1 to 4 times per year 07/19/2023 Do you belong to any clubs o r organizations such as faith groups, unions, fraternal or athletic groups, or [...] Answer Date Recorded PHQ-2 Score 0 02/16/2019 [facility] [place] of Occupat ional Health - Occupational Stress [...] [facility] - Family Medicine - [place] #2 [place] [address] James Roach MD #2 [facility] [address] [place] [address] 03/22/2025 11:00 AM CDT Office Visit [facility] - Endocrinology - [place] #2 [place] [address] Bay Yin MD #2 [facility] [address] [place] [address] documented as of this encounter Visit Diagnoses Diagnosis Radiation-induced esophageal stricture Stricture and stenosis of esophagus documented in this encounter Additional Health Concerns Assessment Noted Time PHQ-9 Depression Total Score: 0 04/09/20 19 3:00 PM CDT documented as of this encounter Care Teams Conference Translator Relationship Specialty Start Date End Date James Roach MD #[address] [address] PCP - General Family Medicine 05/26/21 Bret Koo MD Consulting Physician Oncology 11/18/15 08/13/24 Atif Bernstein MD [address] [place] [address] Consulting Physician Radiation Oncology 11/19/15 Meche Coburn MD [address] [facility] 162 [facility] 202 [place] [address] Consulting Physician Pulmonary Disease 11/21/15 Charlie Beverly DO [address] [facility] [address] [place] [address] Gastroenterology 03/30/16 08/13/24 Tona Castellanos APRN, BOOM TENDER [address] [facility] [address] [place] [address] Nurse Practitioner Advanced Practice Nurse 08/03/1608/13/24 Kathryn Daniel MD [address] [facility] [address] [facility] [address] [place] [address] Obstetrics & Gynecology 05/16/17 Arjun Musa 2[address] [facility] [address] [place] [address] Radiation Oncologist Hematology 06/13/18 Bay Yin MD #[address] [address] Consulting Physician Endocrinology 01/14/22 Dax Cervantes MD #[address] [address] Consulting Physician Colon and Rectal Surgery 07/23/22 Ramon Fitzgerald MD #2 [place] [address] Consulting Physician Neurology 05/13/23 documented as of this encounter
--- OUTSIDE RECORDS SUMMARY | 2025-01-15 09:04 | XMS_ITS | Encounter Summary ---
Author Organization [facility] Address [address] [place] [address] Phone Care Team Providers Care Epic Cupid Analyst Name Role Phone Bret Koo MD Unavailable Atif Bernstein MD Unavailable [phone] Meche Coburn MD Unavailable [phone] Charlie Beverly DO Unavailable [phone] Tona Castellanos APRN, ASSEMBLY RIVETER Unavailable Kathryn Daniel MD Unavailable Unavail able Arjun Musa Unavailable James Roach MD Primary Care Provider [phone] Bay Yin MD Unavailable Dax Cervantes MD Unavailable Ramon Fitzgerald MD Unavailable [phone] Reason for Visit * Reason Comments Medication Refill Encounter Details Date Type Department Care Team (Late st Contact Info) Description 09/07/2022 [facility]ill [facility] - General Surgery - [place] #[address] [address] Dax Cervantes MD #[address] [address] Medication Refill Social History Tobacco Use Types [...] Description 01/15/2025 4:00 PM CDT Office Visit [facility] - Family Medicine [facility] #2 [place] [address] James Roach MD #2 [facility] [address] [place] [address] 03/22/2025 11:00 AM CDT Office Visit [facility] - Endocrinology - [place] #2 [place] [address] Bay Yin MD #2 [facility] [address] [place] [address] documented as of this encounter Visit Diagnoses Not on filedocumented in this encounter Additional Health Concerns Assessment Noted Time PHQ-9 Depression Total Score: 0 04/09/20 19 3:00 PM CDT documented as of this encounter Care Teams Epic Cupid Analyst Relationship Specialty Start Date End Date James Roach MD #[address] [facility] [address] [place] [address] PCP - General Family Medicine 05/26/21 Bret Koo MD Consulting Physician Oncology 11/18/15 08/13/24 Atif Bernstein MD [address] [place] [address] Consulting Physician Radiation Oncology 11/19/15 Meche Coburn MD [address] [facility] [address] [place] [address] Consulting Physician Pulmonary Disease 11/21/15 Charlie Beverly DO [address] [facility] [address] [place] [address] Gastroenterology 03/30/16 08/13/24 Tona Castellanos, COOK MANAGER, ASSEMBLY RIVETER [address] [facility] [address] [place] [address] Nurse Practitioner Advanced Practice Nurse 08/03/1608/13/24 Kathryn Daniel MD [address] [facility] [address] [place] [address] Obstetrics & Gynecology 05/16/17 Arjun Musa [address] [facility] [address] [place] [address] Radiation Oncologist Hematology 06/13/18 Bay Yin MD #[address] [address] Consulting Physician Endocrinology 01/14/22 Dax Cervantes MD #[address] [address] Consulting Physician Colon and Rectal Surgery 07/23/22 Ramon Fitzgerald MD #2 [place] [address] Consulting Physician Neurology 05/13/23 documented as of this encounter
--- OUTSIDE RECORDS SUMMARY | 2025-01-15 09:04 | XMS_ITS | Clinical Summary ---
Author Organization [facility] Address [address] [place] [address] Care Team Providers Care Grain Mill Worker Name Role Phone Unavailable Primary Care Provider [...]
--- OUTSIDE RECORDS SUMMARY | 2025-01-15 09:04 | XMS_ITS | Clinical Summary ---
Author Organization [facility] [employer] Address [address] [place] [address] Care Team Providers Care Recreation Facilities Supervisor Name Role Phone Alexandra Ramirez REJI-SUPERVISOR CARDING Primary Care Provider Source Comments [facility],non-owned Affiliates and Associated Physician Practices is amultiple site organization consisting of ambulatory clinics and hospital sitesin [place], [place], [place] and [place]. This disclosure is being madepursuant to the Care Everywhere program and may not contain all information available regarding this patient. Last updated 18.[facility] [employer] Allergies Active Allergy Reactions Criticality Noted Date [...] on file Legal Sex Female 5:36 PM 911 OPERATOR Gender Identity Not on file Sexual Orientation [...] 10:08 AM CDT Height 170.2 cm (5' 7) 10/20/2015 8:20 AM CDT Body Mass Index [...] SCREENING 1971 LIPID TESTING 1971 MAMMOGRAM 1971 HIV SCREENING 1986 HEPATITIS C SCREENING 07/08/1989 DTAP/TDAP/TD VACCINES (1 - Tdap) 1990 HEPATITIS B VACCINE (1 of 3 - 19+ 3-dose series) 1990 PNEUMOCOCCAL VACCINE 50+ (1 of 2 - PCV) 1990 PAP SMEAR 1992 ZOSTER VACCINE (1 of 2) 2021 COVID-19 VACCINE (1 - 2023-2 5 season) 2024 DEPRESSION SCREENING 06/13/2024 INFLUENZA VACCINE (#1) 2025 HIB VACCINE Aged Out No longer [...] patient's age to complete this topic [place] [address] [address] [place] [address] Care Teams Recreation Facilities Supervisor Relationship Specialty Start Date End Date Alexandra Ramirez, EXPORT PACKER-SUPERVISOR CARDING [address] [facility] [address] [place] [id number] PCP - General 11/23/16
--- OUTSIDE RECORDS SUMMARY | 2025-01-15 09:04 | XMS_ITS | Encounter Summary ---
Author Organization [facility] [employer] [facility] Address [address] [place] [address] Care Team Providers Care Semiconductors Wafer Breaker Name Role Phone James Roach MD Primary Care Provider [phone] Encounter Details Date Type Department Care Team ([facility] Contact Info) Description 01/11/2025 Orders Only [facility] [address] [place] [address] Arjun Musa MD [facility] [address] [place] [address] Social History Tobacco Use Types Packs/Day Years [...] Description 02/01/2025 10:00 AM CDT Office Visit [facility] [address] [place] [address] Arjun Musa MD [address] [place] [address] documented as of this encounter Procedures Procedure Name Priority Date/Time Associated Diagnosis Comments BASIC METABOLIC PANEL Routine 01/11/2025 11:47 AM CDT CBC WITH AUTODIFFERENTIAL Routine 2024 11:46 AM CDT documented in this encounter Results * BASIC METABOLIC PANEL (01/11/2025 11:47 AM CDT) Blood us Arjun Musa MD CHEMISTRY ORDERABLES Final Resu lt * CBC WITH AUTODIFFERENTIAL (01/11/2025 11:46 AM CDT) Blood us Arjun Musa MD HEMATOLOGY ORDERABLES Final Res ult documented in this encounter Visit Diagnoses Not on filedocumented in this encounter Care Teams Semiconductors Wafer Breaker Relationship Specialty Start Date End Date James Roach MD [address] [address] PCP - General Family Practice 09/14/21 documented as of this encounter
--- OUTSIDE RECORDS SUMMARY | 2025-01-15 09:04 | XMS_ITS | Encounter Summary ---
Author Organization [facility] Address [address] [place] [address] Phone Care Team Providers Care Foreign Language Teacher Name Role Phone Bret Koo MD Unavailable Atif Bernstein MD Unavailable [phone] Meche Coburn MD Unavailable [phone] Charlie Beverly DO Unavailable [phone] Tona Castellanos APRN, CHIP BIN OPERATOR Unavailable Kathryn Daniel MD Unavailable Unavail able Arjun Musa Unavailable James Roach MD Primary Care Provider Bay Yin MD Unavailable Dax Cervantes MD Unavailable Ramon Fitzgerald MD Unavailable [phone] Reason for Visit * Reason Comments Medication Refill Encounter Details Date Type Department Care Team (Late st Contact Info) Description 08/29/2023 Refill [facility] - Family Medicine [facility] #2 [place] [address] James Roach MD #[address] [address] Medication Refill Social History Tobacco Use Types Packs/Day Years Used Date Smoking Tobacco: Former Cigarettes 1 20.1 1 997 - 07/27/2016 Smokeless Tobacco: Never Alcohol Use Standard Drinks/Week Comments No 0 (1 standard drink = 0.6 oz pur e alcohol) very rarely [facility] Utilities Answer Date Recorded In the past [...] [facility] or episcopalian services? 1 to 4 times per year 07/19/2023 Do you belong to any clubs o r organizations such as amish groups, unions, fraternal or athletic groups, or [...] Answer Date Recorded PHQ-2 Score 0 02/16/2019 [facility] [place] of Occupat ional Health - Occupational Stress [...] place to sleep or slept in a jail (including now)? No 07/19/2023 Education Answer Date [...] Dept 08/23/23 Office Visit James Roach MD [facility] 07/19/23 Office Visit James Roach MD [facility] 05/19/23 Office Visit Lenny Thornton MD [facility] 04/21/23 Telemedicine James Roach MD [facility] 04/12/23 Office Visit James Roach MD [facility] 03/08/23 Office Visit Jordin Heath APRN, CNP [facility] 01/05/23 Office Visit James Roach MD [facility] 10/21/22 Office Visit James Roach MD [facility] [place] Showing recent visits within past [...] Description 01/15/2025 4:00 PM CDT Office Visit [facility] - Family Medicine - [place] #2 [place] [address] James Roach MD #2 [facility] 205 [place] [address] 03/22/2025 11:00 AM CDT Office Visit [facility] - Endocrinology - [place] #2 [place] [address] Bay Yin MD #2 [facility] [address] [place] [address] documented as of this encounter Visit Diagnoses Diagnosis Left hand paresthesia Disturbance of skin sensation documented in this encounter Additional Health Concerns Assessment Noted Time PHQ-9 Depression Total Score: 0 04/09/20 19 3:00 PM CDT documented as of this encounter Care Teams Foreign Language Teacher Relationship Specialty Start Date End Date James Roach MD #2 [facility] [address] [place] [address] PCP - General Family Medicine 05/26/21 Bret Koo MD Consulting Physician Oncology 11/18/15 08/13/24 Atif Bernstein MD [address] [place] [address] Consulting Physician Radiation Oncology 11/19/15 Meche Coburn MD [address] [facility] [address] [place] [address] Consulting Physician Pulmonary Disease 11/21/15 Charlie Beverly DO [address] [place] [address] Gastroenterology 03/30/16 08/13/24 Tona Castellanos, LEGAL DOCUMENT ASSISTANT, CHIP BIN OPERATOR [address] [place] [address] Nurse Practitioner Advanced Practice Nurse 08/03/1608/13/24 Kathryn Daniel MD [address] [facility] [address] [place] [address] Obstetrics & Gynecology 05/16/17 Arjun Musa [address] [facility] [address] [place] [address] Radiation Oncologist Hematology 06/13/18 Bay Yin MD #[address] [address] Consulting Physician Endocrinology 01/14/22 Dax Cervantes MD #[address] [address] Consulting Physician Colon and Rectal Surgery 07/23/22 Ramon Fitzgerald MD #2 [place] [address] Consulting Physician Neurology 05/13/23 documented as of this encounter
--- OUTSIDE RECORDS SUMMARY | 2025-01-15 09:04 | XMS_ITS ---
Author Organization [facility] Address [address] [place] [address] Phone Care Team Providers Care Grinder Set Up Operator Thread Name Role Phone Atif Bernstein MD Unavailable [phone] Meche Coburn MD Unavailable [phone] Kathryn Daniel MD Unavailable Unavail able Arjun Musa Unavailable James Roach MD Primary Care Provider [phone] Bay Yin MD Unavailable Dax Cervantes MD Unavailable Ramon Fitzgerald MD Unavailable [phone] [employer] Chronic Condition Monitoring Status:Enrolled (Active) Start date:05/25/2023 Enrollment date:05/26/2023 Current support & services provided:Hypertension Management Related social drivers of health:Intimate Partner Violence, Social Connections, Alcohol Use, Tobacco Use, Financial Resource Strain,Depression, Stress, Physical Activity, Food Insecurity, Transportation Needs, Housing Stability, Utilities Continued Care and Services Coordination
--- OUTSIDE RECORDS SUMMARY | 2025-01-15 09:04 | XMS_ITS | Clinical Summary ---
Author Organization [facility] Address [address] [place] [address] Phone Care Team Providers Care Ready To Wear Department Manager Name Role Phone Atif Bernstein MD Unavailable [phone] Meche Coburn MD Unavailable [phone] Kathryn Daniel MD Unavailable Unavail able Arjun Musa Unavailable James Roach MD Primary Care Provider [phone] Bay Yin MD Unavailable Dax Cervantes MD Unavailable Ramon Fitzgerald MD Unavailable [phone] Allergies Active Allergy Reactions Criticality Noted Date [...] PO) Take 500 mg by mouth. Active [place] 3 1000 MG Capsule Take by mouth. Active DANDELION PO Take 1,040 mg by mouth. Active B Complex Vitamins (B COMPLEX PO) Take 100 mg by mouth. Active hydroxychloroqui ne (PLAQUENIL) 200 MG Tablet Take 200 mg by mouth 2 times daily. Active naloxone HCl (Narcan) 4 MG/0.1ML Liquid 1 Junction by Nasal route as needed for Opioid [...] PAIN 90 Capsule 2 02/27/20 24 Active Incruse Ellipta 62.5 MCG/ACT AEROSOL POWDER, BREATH ACTIVATED INHALE 1 PUFF BY MOUTH DAILY 30 Each 10 04/01/20 24 Active alendronate (FOSAMAX) 70 MG Tablet Take 1 Tablet by mouth every 7 days. 12 Tablet 3 04/17/20 24 Active levothyroxine (SYNTHROID) 112 MCG Tablet TAKE 1 TABLET BY MOUTH DAILY 90 Tablet 1 09/12/19 25 Active amLODIPine (NORVASC) 5 MG Tablet TAKE 1 TABLET BY MOUTH DAILY 90 Tablet 2 12/26/19 25 Active amLODIPine (NORVASC) 5 MG Tablet TAKE 1 TABLET BY MOUTH DAILY 90 Tablet 2 10/ 025 Discontinued Active Problems Problem Noted Date [...] Encounters Date Type Department Care Team Description 01/09/2025 Telephone [facility] [place] [address] James Roach MD 12/24/2024 Refill [facility] [address] [place] [address] James Roach MD Medication Refill from Last [...] 0.6 oz pur e alcohol) very rarely C Utilities Answer Date Recorded In the past 12 months has e electric, gas, oil, or water company [...] often do you attend chur ch or presybeterian services? 1 to 4 times per year 07/19/2023 Do you belong to any clubs o r organizations such as rastafari groups, unions, fraternal or athletic groups, or [...] Recorded Total Score - Questions 1-9 0 /0 06/2024 [facility] - Occupational [...] place to sleep or slept in a snf (including now)? No 07/19/2023 Education Answer Date [...] P M CDT Height 167.6 cm (5' 6) 09/11/2024 9:43 AM CDT Body Mass Index 19.63 09/11/2024 9:43 AM CDT Plan of Treatment Upcoming Encounters Date Type Department Care Team (Late st Contact Info) Description 01/15/2025 4:00 PM CDT [facility] [address] [place] [address] James Roach MD #2 [facility] [address] [place] [address] 03/22/2025 11:00 AM CDT [facility] End[facility] #2 [place] [address] Bay Yin MD #2 [facility] [address] [place] [address] Health Maintenance Due Date Last Done Comments TdaP Immunization 1971 SARS-COV-2 Immunization (#1) 1976 Hepatitis B Immunization (1 of 3 - 19+ 3-dose series) 1990 Zoster Immunization (1 of 2) 1990 Pneumococcal Immunization (50+ years) (2 of 2 - PCV) 07/10/2015 07/10/2014 Colonoscopy 2016 Immunochemical Fecal Occult Blood 2016 Mammogram 05/15/2023 05/15/2022, 03/13, 03/27/2019, Additional history exists Cologuard 02/02/2025 02/02/2022 Colorectal Cancer Screening 02/02/2025 Influenza Immunization (#1) 2025 Respiratory Syncytial Virus (RSV) Immunization (Adult) (1 - 1-dose 75+ series) 2046 Pneumococcal Immunization Combined Discontinued 07/10/2014 Discussion re Starting/Frequency of Mammograms Discontinued 05/15/2022, 03/27/2019, 03/27/2019, Additional history exists Hepatitis C Virus (HCV) Screening Completed 07/26/2022 Human Papillomavirus (HPV) Immunization Aged Out No longer eligible based on patient's age to complete this topic Meningococcal Immunization (ACWY) Aged Out No longer eligible based on patient's age to complete this topic Rotavirus Immunization Aged Out No lo nger eligible based on patient's age to complete this topic Medical Devices Implanted Type Area Real Estate Utilization Officer Device Identifier Shelf Expiration Date Model / Serial / Lot Clip 235cm Resolution Implanted:Qty: 1 on 08/05/2022 by Dax Cervantes MD at [facility] N/A: Esophagus [employer] 09/21/2023 [id number] / [id number] / [id number] Procedures Procedure Name Priority Date/Time Associated Diagnosis Comments COMPLETE BLOOD COUNT (CBC) WITH DIFF 11/30/2024 12:00 AM CDT CMP (COMPREHENSIVE METABOLIC PANEL) 11/30/2024 12:00 AM CDT BASIC METABOLIC PANEL W/ CALCIUM TOTAL 11/30/2024 12:00 AM CDT VASCULAR SURGERY CONSULT 11/13/2024 12:[address] - CHEST 10/29/2024 12:00 AM CDT HEPATITIS PANEL ACUTE (AHP) 07/26/2022 12:00 AM CREATIVE DIRECTOR ANSELMO SCREENING BILATERAL DIGITAL W CAD W AMMON Routine 05/15/2022 12:00 AM CREATIVE DIRECTOR Encounter for screening mammogram for breast cancer COLOGUARD Routine 02/02/2022 7:40 AM CDT Screening for colon cancer from Last 3 Months or Most Recently Relevant to Health Maintenance Results * CMP (COMPREHENSIVE METABOLIC PANEL) (11/30/2024 12:00 AM CDT) 11/30/2024 us Provider Scan CHEMISTRY ORDERABLES Final Resul t Performing Organization Address City/[facility] Co de Phone Number SCAN * COMPLETE BLOOD COUNT (CBC) WITH DIFF (11/30/2024 12:00 AM CDT) 11/30/2024 us Provider Scan HEMATOLOGY ORDERABLES Final Resu lt SCAN * BASIC METABOLIC PANEL W/ CALCIUM TOTAL (11/30/2024 12:00 AM CDT) 11/30/2024 us Provider Scan CHEMISTRY ORDERABLES Final Resul t SCAN * VASCULAR SURGERY CONSULT (11/13/2024 12:00 AM CDT) 11/13/2024 us Provider Scan GENERIC SCAN ORDERS CONSULT Veronika l Result Performing Organization Address [facility] Co de Phone Number SCAN * CT - CHEST (10/29/2024 12:00 AM CDT) 10/29/2024 us Provider Scan IMG CT ORDERABLES Final Result Performing Organization Address City/[facility]/ZIP Co de Phone Number SCAN * HEPATITIS PANEL ACUTE (AHP) (07/26/2022 12:00 AM CREATIVE DIRECTOR) 07/26/2022 us Provider Scan HEMATOLOGY ORDERABLES Final Resu lt Performing Organization Address [facility] Co de Phone Number SCAN * ANSELMO SCREENING BILATERAL DIGITAL W CAD W AMMON (05/15/2022 12:00 AM CREATIVE DIRECTOR) Anatomical Region Laterality Modality breast Bilateral Mammography 05/15/2022 James Roach MD IMG MAMMO ORDERABLES Veronika l Result * COLOGUARD (02/02/2022 7:40 AM CDT) Cologuard Negative Negative EXACT [facility] Comment: NEGATIVE TEST RESULT. A negative [...] (Shamar Bowen al, N Engl J Med 2014;370(14):4210-8675) The normal value (reference range) for this assay is negative. COLOGUARD RE-SCREENING RECOMMENDATION: Periodic colorectal cancer screening is an important part of preventive healthcare for asymptomatic individuals at average risk for colorectal cancer. Following a negative Cologuard result, the [place] [employer] Society and U.S. Multi-Society Task Force screening guidelines recommend a Cologuard re-screening interval of 3 years. References: [place] [employer] Guideline for Colorectal Cancer Screening: https://www.cancer.org/cancer/ymgkj-lbdlav-wtxpsc/sqstcnjxa-tkytnwdbf-zayvkxy/ acs-recommendations.html.; Corona DK, Gideon CASSIDY, Yulia YipK, Colorectal Cancer Screening: Recommendations for Physicians and Patients from the U.S. Multi-Society Task Force on Colorectal Cancer Screening , Am J Gastroenterology 2017; 112:8218-1356. TEST DESCRIPTION: Composite algorithmic analysis of stool [...] screened with both Cologuard and colonoscopy. (Shamar Aguirre, N Engl J Med 2014;370(14):0859-2557.) Cologuard may produce a false negative or false positive result (no colorectal cancer or precancerous polyp present at colonoscopy follow up). A negative Cologuard test result does not guarantee the absence of CRC or advanced adenoma (pre-cancer). The current Cologuard screening interval is every 3 years. ([place] [employer] Society and U.S. Multi-Society Task Force). Cologuard performance data in a 10,000 patient pivotal study using colonoscopy as the reference method can be accessed at the following location: www.Cask.com/results. Additional description of the Cologuard test process, warnings and precautions can be found at www.cologuard.com. Stool 02/02/2022 7:40 AM CDT 02/03/2022 5:42 PM CDT James Roach MD BODY FLUIDS & STOOLS [facility] Final Result Performing Organization Address City/State/[facility] Co de Phone Number [employer] [address] [place] [address], [employer] [address] [place] [address] from Last 3 Months or Most Recently Relevant to Health Maintenance Insurance MEDICAID [facility] [employer] Care Teams Ready To Wear Department Manager Relationship Specialty Start Date End Date James Roach MD [address] [place] [address] PCP - General Family Medicine 05/26/21 Atif Bernstein MD [address] [place] [address] Consulting Physician Radiation Oncology 11/19/15 Meche Coburn MD [address] [facility] [address] [place] [address] Consulting Physician Pulmonary Disease 11/21/15 Kathryn Daniel MD [address] [facility] [address] [place] [address] Obstetrics & Gynecology 05/16/17 Arjun Musa [address] [facility] [address] [place] [address] Radiation Oncologist Hematology 06/13/18 Bay Yin MD #[address] [address] Consulting Physician Endocrinology 01/14/22 Dax Cervantes MD #[address] [address] Consulting Physician Colon and Rectal Surgery 07/23/22 Ramon Fitzgerald MD [address]2 [place] [address] Consulting Physician Neurology 05/13/23
--- OUTSIDE RECORDS SUMMARY | 2025-01-15 09:04 | XMS_ITS | Clinical Summary ---
Author Organization [facility] Address [address] [place] [address] Care Team Providers Care [employer] Package Symbol Stamper Name Role Phone James Roach MD Primary Care Provider [phone] Allergies Active Allergy Reactions Criticality Noted Date [...] daily. Active rema root, bulk, Powder by [facility].(Non-Drug ; Combo Route) route. Active turmeric root extract 500 mg Capsule Take by mouth. Activ e naloxone (NARCAN) 4 mg/spray [place], Non-Aerosol EMERGENCY USE ONLY: Administer 1 spray [...] breath 18 Gram 1 02/14/20 24 Active temazepam (RESTORIL) 15 mg capsuleIndicat ions:Adenocarc inoma of lung, unspecified laterality (CMS/HCC),Non- small cell lung cancer, right (CMS/HCC),Non- small cell lung cancer, unspecified laterality (CMS/HCC),Shor tness of breath TAKE 1 CAPSULE BY MOUTH EVERY NIGHT NEEDED 30 Capsule 12/13/19 25 Active folic acid (FOLVITE) 1 mg tabletIndicati ons:Adenocarci noma of lung, unspecified laterality (CMS/HCC),Non- small cell lung cancer, right (CMS/HCC) TAKE 1 TABLET BY MOUTH EVERY DAY 30 Tablet 1 12/18/19 25 Active ALPRAZolam (XANAX) 0.25 mg tabletIndicati ons:Adenocarci noma of lung, unspecified laterality (CMS/HCC),Non- small cell lung cancer, right (CMS/HCC),Non- small cell lung cancer, unspecified laterality (CMS/HCC) Take 1 Tablet (0.25 mg) by mouth 2 times daily. 60 Tablet 01/04/20 25 Active oxyCODONE (ROXICODONE) 5 mg tabletIndicati ons:Adenocarci noma of lung, unspecified laterality (CMS/HCC),Non- small cell lung cancer, right (CMS/HCC),Non- small cell lung cancer, unspecified laterality (CMS/HCC),Shor tness of breath Take 1 Tablet (5 mg) by mouth every 4 hours as needed for Pain. Max Daily Amount: 30 mg 100 Tablet 01/04/20 25 Active folic acid (FOLVITE) 1 mg tabletIndicati ons:Adenocarci noma of lung, unspecified laterality (CMS/HCC),Non- small cell lung cancer, right (CMS/HCC) TAKE 1 TABLET BY MOUTH EVERY DAY 30 Tablet 1 10/17/19 25 025 Discontinued ALPRAZolam (XANAX) 0.25 mg tabletIndicati ons:Adenocarci noma of lung, unspecified laterality (CMS/HCC),Non- small cell lung cancer, right (CMS/HCC),Non- small cell lung cancer, unspecified laterality (CMS/HCC) Take 1 Tablet (0.25 mg) by mouth 2 times daily. 60 Tablet 11/21/19 25 025 Discontinued(R eorder) oxyCODONE (ROXICODONE) 5 mg tabletIndicati ons:Adenocarci noma of lung, unspecified laterality (CMS/HCC),Non- small cell lung cancer, right (CMS/HCC),Non- small cell lung cancer, unspecified laterality (CMS/HCC),Shor tness of breath Take 1 Tablet (5 mg) by mouth every 4 hours as needed for Pain. 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 Adenocarcinoma, lung 10/13/2016 HTN (hypertension), benign 10/13/2016 Emphysema of lung 10/05/2016 Benign hypertension 10/05/2016 Encounters Date Type Department Care Team Description 01/14/2025 Orders Only [facility] Oncology and Hematology [facility] [address] [place] [address] Arjun Musa MD 01/11/2025 Orders Only [facility] Oncology and Hematology [facility] [address] [place] [address] Arjun Musa MD 01/07/2025 Orders Only [facility] Oncology and Hematology [facility] [address] [place] [address] Arjun Musa MD Adenocarcinoma of lung, unspecified laterality (CMS/HCC) 01/03/2025 Refill [facility] Oncology and Hematology [facility] [address] [place] [address] Arjun Musa MD Adenocarcinoma of lung, unspecified laterality (CMS/HCC); Non-small cell lung cancer, right (CMS/HCC); Non-small cell lung cancer, unspecified laterality (CMS/HCC); Shortness of breath 12/26/2024 External Device Data STL ABSTRACTION Provider, Abstract 12/25/2024 External Device Data STL ABSTRACTION Provider, Abstract 12/24/2024 Orders Only [facility] Oncology and Hematology [facility] [address] [place] [id number] Arjun Musa MD Adenocarcinoma of lung, unspecified laterality (CMS/HCC) 12/17/2024 Refill [facility] Oncology and Hematology [facility] [address] [place] [address] Arjun Musa MD Adenocarcinoma of lung, unspecified laterality (CMS/HCC); Non-small cell lung cancer, right (CMS/HCC) 12/12/2024 Refill [facility] Oncology and Hematology - [place] [address] [place] [id number] Arjun Musa MD Adenocarcinoma of lung, unspecified laterality (CMS/HCC); Non-small cell lung cancer, right (CMS/HCC); Non-small cell lung cancer, unspecified laterality (CMS/HCC); Shortness of breath 12/10/2024 Orders Only [facility] Oncology and Hematology - [place] [address] [place] [address] Arjun Musa MD Adenocarcinoma of lung, unspecified laterality (CMS/HCC) 12/07/2024 Orders Only [facility] Oncology and Hematology - [place] [address] Arjun Musa MD 11/27/2024 External Device Data STL ABSTRACTION Provider, Abstract 11/26/2024 Orders Only [facility] Oncology and Hematology [facility] [address] [place] [phone] Arjun Musa MD Adenocarcinoma of lung, unspecified laterality (CMS/HCC) 11/20/2024 Refill [facility] Oncology and Hematology [facility] [address] [place] [address] Arjun Musa MD Adenocarcinoma of lung, unspecified laterality (CMS/HCC); Non-small cell lung cancer, right (CMS/HCC); Non-small cell lung cancer, unspecified laterality (CMS/HCC); Shortness of breath 11/13/2024 External Device Data STL ABSTRACTION Provider, Abstract 11/12/2024 Orders Only [facility] Oncology and Hematology - [place] [address] [place] [address] Arjun Musa MD Adenocarcinoma of lung, unspecified laterality (CMS/HCC) 11/09/2024 Orders Only [facility] Oncology and Hematology - [place] [address] [place] [address] Arjun Musa MD 11/06/2024 9:30 AM CDT Office Visit [facility] Oncology and Hematology - [place] [address] [place] [address] Arjun Musa MD Adenocarcinoma of lung, unspecified laterality (CMS/HCC) (Primary Dx) 11/01/2024 External Device Data STL ABSTRACTION Provider, Abstract 11/01/2024 External Device Data STL ABSTRACTION Provider, Abstract 10/31/2024 Orders Only [facility] Oncology and Hematology [place] [address] [place] [phone] Arjun Musa MD 10/31/2024 Refill [facility] Oncology and Hematology - [place] [address] [place] [address] Arjun Musa MD Adenocarcinoma of lung, unspecified laterality (CMS/HCC); Non-small cell lung cancer, right (CMS/HCC); Non-small cell lung cancer, unspecified laterality (CMS/HCC); Shortness of breath 10/31/2024 External Device Data STL ABSTRACTION Provider, Abstract 10/30/2024 External Device Data STL ABSTRACTION Provider, Abstract 10/29/2024 Orders Only [facility] Oncology and Hematology - [place] [address] [place] [address] Arjun Musa MD Adenocarcinoma of lung, unspecified laterality (CMS/HCC) 10/23/2024 Refill [facility] Oncology and Hematology - [place] [address] [place] [phone] Arjun Musa MD Adenocarcinoma of lung, unspecified laterality (CMS/HCC); Non-small cell lung cancer, right (CMS/HCC); Non-small cell lung cancer, unspecified laterality (CMS/HCC); Shortness of breath 10/16/2024 Refill [facility] Oncology and Hematology - [place] [address] [place] [address] Arjun Musa MD Adenocarcinoma of lung, unspecified laterality (CMS/HCC); Non-small cell lung cancer, right (CMS/HCC); Non-small cell lung cancer, unspecified laterality (CMS/HCC) 10/16/2024 Orders Only [facility] Oncology and Hematology - [place] [address] [place] [address] Arjun Musa MD 10/16/2024 Refill [facility] Oncology and Hematology - [place] [address] [place] [address] Arjun Musa MD Adenocarcinoma of lung, unspecified laterality (CMS/HCC); Non-small cell lung cancer, right (CMS/HCC) 10/15/2024 Orders Only [facility] Oncology and Hematology - [place] [address] [place] [address] Arjun Musa MD Adenocarcinoma of lung, unspecified laterality (CMS/HCC) from Last 3 Months [...] Sign Reading Time Taken Comments Blood Pressure 92/63 11/06/2024 9:36 AM CDT Pulse 79 11/06/2024 9:36 AM CDT Temperature 37.1 C (98.7 F) 11/06/2024 9:36 AM CDT Respiratory Rate 15 11/06/2024 9:36 AM CDT Oxygen Saturation 98% 11/06/2024 9:36 AM CDT Inhaled Oxygen Concentration - - Weight 54 kg (119 lb) 11/06/2024 9:36 AM CDT Height 167.6 cm (5' 6) 04/12/2022 11:45 AM CDT Body Mass Index 19.21 04/12/2022 11:45 AM CDT Plan of Treatment Upcoming Encounters Date Type Department Care Team (Late st Contact Info) Description 02/01/2025 10:00 AM CDT Office Visit [facility] Oncology and Hematology - [place] [address] [place] [address] Arjun Musa MD [address] [facility] [employer] [address] [place] [address] Health Maintenance Due Date Last Done Comments DTAP/TDAP/TD VACCINES (1 - Tdap) 1990 HEPATITIS B VACCINES (1 of 3 - 19+ 3-dose series) 1990 ZOSTER VACCINE (1 of 2) 1990 COLORECTAL SCREENING 2016 Colorectal Cancer Screening 2016 FIT-DNA Q 3 years 2016 FIT/FOBT Q 1 year 2016 Flex Sig/CT Colonography Q 5 years 2016 BREAST CANCER SCREENING 07/20/2024 07/20/19 24, 05/15/2022, 05/15/2022, Additional history exists INFLUENZA VACCINE (#1) 2025 Procedures Procedure Name Priority Date/Time Associated Diagnosis Comments BASIC METABOLIC PANEL Routine 01/11/2025 11:47 AM CDT CBC WITH AUTODIFFERENTIAL Routine 2024 11:46 AM CDT COMPREHENSIVE METABOLIC PANEL Routine 01/11/2025 10:28 AM CDT COMPREHENSIVE METABOLIC PANEL Routine 01/11/2025 10:20 AM CDT COMPREHENSIVE METABOLIC PANEL Routine 11/30/2024 1:55 PM CDT BASIC METABOLIC PANEL Routine 11/30/2024 1:33 PM CDT CBC WITH DIFFERENTIAL Routine 11/30/2024 1:30 PM CDT COMPREHENSIVE METABOLIC PANEL Routine 11/06/2024 4:[address] CHEST W CONTRAST Routine 10/29/2024 1 :55 PM CDT BASIC METABOLIC PANEL Routine 10/15/2024 2:33 PM CDT MAMMO SCREENING BILAT Routine 07/20/2023 2:50 PM INVESTIGATION DIVISION CAPTAIN from Last 3 Months or Most Recently Relevant to Health Maintenance Results * BASIC METABOLIC PANEL (01/11/2025 11:47 AM CDT) Only the most recent of3 resultswithin the time period is included. Blood us Arjun Musa MD CHEMISTRY ORDERABLES Final Resu lt * CBC WITH AUTODIFFERENTIAL (01/11/2025 11:46 AM CDT) Blood us Arjun Musa MD HEMATOLOGY ORDERABLES Final Res ult * COMPREHENSIVE METABOLIC PANEL (01/11/2025 10:28 AM CDT) Only the most recent of4 resultswithin the time period is included. Blood us Arjun Musa MD CHEMISTRY ORDERABLES Final Resu lt * CBC WITH DIFFERENTIAL (11/30/2024 1:30 PM CDT) Blood us Arjun Musa MD HEMATOLOGY ORDERABLES Final Res ult * CT CHEST W CONTRAST (10/29/2024 1:55 PM CDT) Anatomical Region Laterality Modality Chest Computed Tomogra phy us Arjun Musa MD CT ORDERABLES Final Result * MAMMO SCREENING BILAT (07/20/2023 2:50 PM INVESTIGATION DIVISION CAPTAIN) Anatomical Region Laterality Modality Breast Bilateral Mammography us Arjun Musa MD MAMMO ORDERABLES Final Result from Last 3 Months or Most Recently Relevant to Health Maintenance Insurance [facility] MEDICAID Care Teams [employer] Package Symbol Stamper Relationship Specialty Start Date End Date James Roach MD [address] [address] PCP - General Family Practice 09/14/21
--- OUTSIDE RECORDS SUMMARY | 2025-01-15 09:04 | XMS_ITS | Encounter Summary ---
Author Organization [facility] Integrated Medical Management [facility] Address [address] [place] [address] Care Team Providers Care Syrup Maker Cook Name Role Phone James Roach MD Primary Care Provider [phone] Encounter Details Date Type Department Care Team ([facility] Contact Info) Description 01/14/2025 Orders Only [facility] Oncology and Hematology [facility] [address] [place] [address] Arjun Musa MD [facility] [address] [place] [address] Social History Tobacco Use Types Packs/Day [...] Description 02/01/2025 10:00 AM CDT Office Visit [facility] Oncology and Hematology [facility] [address] [place] [address] Arjun Musa MD [address] [facility] [address] [place] [address] documented as of this encounter Procedures Procedure Name Priority Date/Time Associated Diagnosis Comments COMPREHENSIVE METABOLIC PANEL Routine 01/11/2025 10:28 AM CDT COMPREHENSIVE METABOLIC PANEL Routine 01/11/2025 10:20 AM CDT documented in this encounter Results * COMPREHENSIVE METABOLIC PANEL (01/11/2025 10:28 AM CDT) Blood us Arjun Musa MD CHEMISTRY ORDERABLES Final Resu lt * COMPREHENSIVE METABOLIC PANEL (01/11/2025 10:20 AM CDT) Blood us Arjun Musa MD CHEMISTRY ORDERABLES Final Resu lt documented in this encounter Visit Diagnoses Not on filedocumented in this encounter Care Teams Syrup Maker Cook Relationship Specialty Start Date End Date James Roach MD [address] [address] PCP - General Family Practice 09/14/21 documented as of this encounter
--- OUTSIDE RECORDS SUMMARY | 2025-01-15 09:04 | XMS_ITS | Encounter Summary ---
Author Organization [facility] Address [address] [place] [address] Phone Care Team Providers Care Wool Fleece Grader Name Role Phone Bret Koo MD Unavailable Atif Bernstein MD Unavailable [phone] Meche oCburn MD Unavailable [phone] Charlie Beverly DO Unavailable [phone] Tona Castellanos DOUGH MIXER HELPER, PRACTICE ASSISTANT Unavailable aKthryn Daniel MD Unavailable Unavail able Arjun Musa Unavailable James Roach MD Primary Care Provider [phone] Bay Yin MD Unavailable Dax Cervantes MD Unavailable Ramon Fitzgerald MD Unavailable [phone] Encounter Details Date Type Department Care Team (Late st Contact Info) Description 07/19/2023 Transcribe Orders [facility] Laboratory Services [address] [place] [address] Jinny Graff MD [address] [place] [address] WILLAM SMALL [address] Senile arthritis (Primary Dx); Right hand pain; Left hand pain; Squamous carcinoma of lung, left (HCC) Social History Tobacco Use Types Packs/Day Years Used Date Smoking Tobacco: Former Cigarettes 1 20.1 1 997 - 07/27/2016 Smokeless Tobacco: Never Alcohol Use Standard Drinks/Week Comments No 0 (1 standard drink = 0.6 oz pur e alcohol) very rarely [facility] Utilities Answer Date Recorded In the past [...] declined 07/19/2023 How often do you attend [facility] or oriental orthodox services? 1 to 4 times per year 07/19/2023 Do you belong to any clubs o r organizations such as jainism groups, unions, fraternal or athletic groups, or [...] Answer Date Recorded PHQ-2 Score 0 02/16/2019 [facility] [place] of Occupat ional Health - Occupational Stress [...] place to sleep or slept in a longterm (including now)? No 07/19/2023 Education Answer Date [...] as of this encounter Functional Status * AUDIT-C Score Answer Date of Assessment Author 0 07/19/2023 1:57 PM CRUTCHING CONTRACTOR [facility] * Q1: How often do you have a drink containing alcohol? Answer Date of Assessment Author Never 07/19/2023 1:57 PM CRUTCHING CONTRACTOR [facility] * Q2: How many drinks containing alcohol do you have on a typical day when you are drinking? Answer Date of Assessment Author Patient does not drink 07/19/2023 1:57 PM CRUTCHING CONTRACTOR [facility] * Q3: How often do you have six or more drinks on one occasion? Answer Date of Assessment Author Never 07/19/2023 1:57 PM CRUTCHING CONTRACTOR [facility] * Question Answer [...] Description 01/15/2025 4:00 PM CDT Office Visit [facility] - Family Medicine [facility] [address] [place] [address] James Roach MD #2 [facility] [address] [place] [address] 03/22/2025 11:00 AM CDT Office Visit [facility] - Endocrinology [facility] [address] [place] [address] Bay Yin MD #2 [facility] [address] [place] [address] documented as of this encounter Results * CYCLIC CITRULLINATED PEPTIDE 3 (07/19/2023 3:12 PM CRUTCHING CONTRACTOR) CCP IGG 0.5 <3.0 U/mL 07/19/2023 9:2 2 PM CRUTCHING CONTRACTOR [facility] Blood Venipuncture / Unknown 07/19/2023 3:12 PM CRUTCHING CONTRACTOR 07/19/2023 3:29 PM CRUTCHING CONTRACTOR Narrative [facility] - 07/19/2023 9:22 PM CRUTCHING CONTRACTOR Antibody testing was performed by multiplex flow immunoassay on the BioPlex platform. Jinny Graff MD IMMUNOLOGY ORDERABLES Final Re sult Performing Organization Address City/[facility]/ZIP Co de Phone Number [facility] [address] [place] [address], [place] * ROSE SCREEN MULTIPLEX W/REFLEX JASON (07/19/2023 3:12 PM CRUTCHING CONTRACTOR) ROSE SCR MULTIPLEX Negative Negative, See comment 07/19/2023 9:22 PM CRUTCHING CONTRACTOR [facility] Blood Venipuncture / Unknown 07/19/2023 3:12 PM CRUTCHING CONTRACTOR 07/19/2023 3:29 PM CRUTCHING CONTRACTOR Narrative [facility] - 07/19/2023 9:22 PM CRUTCHING CONTRACTOR Antibody testing was performed by multiplex flow immunoassay on the BioPlex platform. Jinny Graff MD IMMUNOLOGY ORDERABLES Final Re sult Performing Organization Address [facility] Co de Phone Number [facility] [address] [place] [address], [place] documented in this encounter Visit Diagnoses [...] documented as of this encounter Care Teams Wool Fleece Grader Relationship Specialty Start Date End Date James Roach MD #[address] [address] PCP - General Family Medicine 05/26/21 Bret Koo MD Consulting Physician Oncology 11/18/15 08/13/24 Atif Bernstein MD [address] [place] [address] Consulting Physician Radiation Oncology 11/19/15 Meche Coburn MD [address] [facility] [address] [place] [address] Consulting Physician Pulmonary Disease 11/21/15 Charlie Beverly DO [address] [facility] [address] [address] Gastroenterology 03/30/16 08/13/24 Tona Castellanos APRN, PRACTICE ASSISTANT [address] [facility] [address] [address] Nurse Practitioner Advanced Practice Nurse 08/03/1608/13/24 Kathryn Daniel MD [address] [facility] [address] [address] Obstetrics & Gynecology 05/16/17 Arjun Musa [address] [facility] [address] [place] [address] Radiation Oncologist Hematology 06/13/18 Bay Yin MD #[address] [address] Consulting Physician Endocrinology 01/14/22 Dax Cervantes MD #[address] [address] Consulting Physician Colon and Rectal Surgery 07/23/22 Ramon Fitzgerald MD #2 [facility] [place] [address] Consulting Physician Neurology 05/13/23 documented as of this encounter
== END 2025-01-15 08:53 | disposition home or self-care (01) ==
LOC: ANHIMG 08:55
PROVIDERS: PCP Family Medicine; Visit Provider Internal Medicine Hematology & Oncology
DX: Z12.31 Encounter for screening mammogram for malignant neoplasm of breast (principal)
CPT/HCPCS: 77063; 77067

== ENCOUNTER 2025-03-05 08:04 | Outpatient (CLI) | payer OTHER, SELFPAY ==
--- NOTE | ~2025-03-05 | CT_ITS ---
EXAMINATION: CT chest abdomen pelvis w con DATE: 03/05/2025 08:23 INDICATION: Adenocarcinoma of lung. TECHNIQUE: Computed tomography (CT) of the chest, abdomen, and pelvis was performed with 100 mL Omnipaque 350 intravenous contrast. Automated exposure control and iterative reconstruction technique were employed. The dose-length product was 291.08 mGy-cm. 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 There is mild emphysema. There is mild atelectasis bilaterally. There is a trace right pleural effusion. The heart size is normal. There are coronary artery calcifications. There is a moderate-sized pericardial effusion. There is no pulmonary embolus. Calcified mediastinal lymph nodes and soft tissue attenuation in the mediastinum are consistent with treated beverley metastatic disease and changes of radiation therapy. 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 There are chronic compression fractures of T6 and T7. There is a chronic pathologic fracture of the sternum, which may be secondary to treated malignancy and/or radiation osteitis. There is moderate thoracic spondylosis. ABDOMEN/PELVIS CT: The liver demonstrates relatively early enhancement of the left hepatic lobe due to altered blood flow from the occluded superior vena cava. Calcifications in the spleen are consistent with old granulomatous disease. The gallbladder, pancreas, adrenal glands, and left kidney are normal. There is moderate atrophy of right kidney, stable from 01/04/20. There is delayed contrast enhancement of the superior aspect of right kidney. 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 There is a 2.0 cm cyst in right kidney. There is diverticulosis of the colon without evidence of diverticulitis. The appendix is normal. There are no pathologically enlarged lymph nodes. There is physiologic fluid in the pelvis. There is a 3.8 cm fusiform aneurysm of infrarenal aorta. There is a port in right lower quadrant that enters the right common femoral vein with tip at the inferior cavoatrial junction. There is mild lumbar spondylosis. IMPRESSION: 1. Changes of radiation therapy and treated malignancy involving the mediastinum and right hilum. No evidence of metastatic disease. 2. Stable moderate-sized pericardial effusion. 3. 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 4. 3.8 cm fusiform aneurysm of infrarenal aorta. Reviewed, dictated and finalized at location E. IMPRESSION: 1. Changes of radiation therapy and treated malignancy involving the mediastinu m and right hilum. No evidence of metastatic disease. 2. Stable moderate-sized pericardial effusion. 3. 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 4. 3.8 cm fusiform aneurysm of infrarenal aorta.
--- OUTSIDE RECORDS SUMMARY | 2025-03-05 08:21 | XMS_ITS | Encounter Summary ---
Author Organization [facility] Address [address] [place] [address] Care Team Providers Care Washer Carcass Name Role Phone James Roach MD Primary Care Provider [phone] Encounter Details Date Type Department Care Team ([facility] Contact Info) Description 12/08/2016 Chart Note [facility] Radiation Therapy [address] [place] [address] [place] [address] [place] [address] Social History Tobacco Use Types [...] Care Team (Late st Contact Info) Description 03/15/2025 10:30 AM CDT Office Visit [facility] Oncology and Hematology - [place] [address] [facility] [address] [place] [address] Arjun Musa MD [address] [facility] [address] [place] [address] documented as of this encounter Visit Diagnoses Not on filedocumented in this encounter Care Teams Washer Carcass Relationship Specialty Start Date End Date James Roach MD [address] [address] PCP - General Family Practice 09/14/21 documented as of this encounter
--- OUTSIDE RECORDS SUMMARY | 2025-03-05 08:21 | XMS_ITS | Clinical Summary ---
Author Organization [facility] Address [address] [place] [address] Care Team Providers Care Workers Compensation Analyst Name Role Phone James Roach MD Primary Care Provider [phone] Allergies Active Allergy Reactions Criticality Noted Date [...] daily. Active rema root, bulk, Powder by [facility].(Non-Drug; Combo Route) route. Active turmeric root extract 500 mg Capsule Take by mouth. Activ e naloxone (NARCAN) 4 mg/spray [employer], Non-Aerosol EMERGENCY USE ONLY: Administer 1 spray [...] 100 mg by mouth daily. 2 Active alendronate (FOSAMAX) 70 mg tablet Take [...] (CMS/HCC),Non-s mall cell lung cancer, right (CMS/HCC) TAKE 1 TABLET BY MOUTH EVERY DAY 30 Tablet 1 5 Active ALPRAZolam (XANAX) [...] EVERY NIGHT NEEDED 30 Capsule 5 Active temazepam (RESTORIL) 15 mg capsuleIndicati [...] 100 Tablet 5 025 Discontin ued(Reord er) ALPRAZolam (XANAX) 0.25 mg tabletIndicatio ns:Adenocarcino ma of lung, unspecified laterality (CMS/HCC),Non-s mall cell lung cancer, right (CMS/HCC),Non-s mall cell lung cancer, unspecified laterality (CMS/HCC) Take 1 Tablet (0.25 mg) by mouth 2 times daily. 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 Adenocarcinoma, lung 10/13/2016 HTN (hypertension), benign 10/13/2016 Emphysema of lung 10/05/2016 Benign hypertension 10/05/2016 Encounters Date Type Department Care Team Description 03/04/2025 Orders Only [facility] Oncology and Hematology [facility] [address] [place] [address] Arjun Musa MD Adenocarcinoma of lung, unspecified laterality (CMS/HCC) 02/25/2025 Orders Only [facility] Oncology and Hematology [facility] [address] Arjun Musa MD 02/22/2025 Orders Only [facility] Oncology and Hematology - [place] [address] Arjun Musa MD 02/22/2025 Refill [facility] Oncology and Hematology - [place] [address] Karen Borja MD Adenocarcinoma of lung, unspecified laterality (CMS/HCC); Non-small cell lung cancer, right (CMS/HCC); Non-small cell lung cancer, unspecified laterality (CMS/HCC); Shortness of breath 02/18/2025 Orders Only [facility] Oncology and Hematology - [place] [address] Arjun Musa MD Adenocarcinoma of lung, unspecified laterality (CMS/HCC) 02/04/2025 Orders Only [facility] Oncology and Hematology - [place] [address] Arjun Musa MD Adenocarcinoma of lung, unspecified laterality (CMS/HCC) 02/01/2025 10:00 AM CDT Office Visit [facility] Oncology and Hematology - [place] [address] [place] [address] Arjun Musa MD Adenocarcinoma of lung, unspecified laterality (CMS/HCC) (Primary Dx) 02/01/2025 Orders Only [facility] Oncology and Hematology - [place] [address] [place] [phone] Arjun Musa MD 01/25/2025 Refill [facility] Oncology and Hematology - [place] [address] [place] [phone] Arjun Musa MD Adenocarcinoma of lung, unspecified laterality (CMS/HCC); Non-small cell lung cancer, right (CMS/HCC); Non-small cell lung cancer, unspecified laterality (CMS/HCC); Shortness of breath 01/22/2025 Refill [facility] Oncology and Hematology - [place] [address] Arjun Musa MD Adenocarcinoma of lung, unspecified laterality (CMS/HCC); Non-small cell lung cancer, right (CMS/HCC); Non-small cell lung cancer, unspecified laterality (CMS/HCC); Shortness of breath 01/21/2025 Refill [facility] Oncology and Hematology - [place] [address] Arjun Musa MD Adenocarcinoma of lung, unspecified laterality (CMS/HCC); Non-small cell lung cancer, right (CMS/HCC) 01/21/2025 Orders Only [facility] Oncology and Hematology - [place] [address] Arjun Musa MD Adenocarcinoma of lung, unspecified laterality (CMS/HCC) 01/16/2025 Orders Only [facility] Oncology and Hematology - [place] [address] Arjun Musa MD 01/15/2025 External Device Data STL ABSTRACTION Provider, Abstract 01/14/2025 [facility] Oncology and Hematology - [place] [address] [place] [phone] Arjun Musa MD 01/11/2025 Orders Only [facility] Oncology and Hematology - [place] [address] [place] [phone] Arjun Musa MD 01/07/2025 Orders Only [facility] Oncology and Hematology - [place] [address] [place] [phone] Arjun Musa MD Adenocarcinoma of lung, unspecified laterality (CMS/HCC) 01/03/2025 Refill [facility] Oncology and Hematology - [place] [address] Arjun Musa MD Adenocarcinoma of lung, unspecified laterality (CMS/HCC); Non-small cell lung cancer, right (CMS/HCC); Non-small cell lung cancer, unspecified laterality (CMS/HCC); Shortness of breath 12/26/2024 External Device Data STL ABSTRACTION Provider, Abstract 12/25/2024 External Device Data STL ABSTRACTION Provider, Abstract 12/24/2024 Orders Only [facility] Oncology and Hematology [facility] [address] Arjun Musa MD Adenocarcinoma of lung, unspecified laterality (CMS/HCC) 12/17/2024 Refill [facility] Oncology and Hematology [facility] [address] Arjun Musa MD Adenocarcinoma of lung, unspecified laterality (CMS/HCC); Non-small cell lung cancer, right (CMS/HCC) 12/12/2024 Refill [facility] Oncology and Hematology [facility] [address] Arjun Musa MD Adenocarcinoma of lung, unspecified laterality (CMS/HCC); Non-small cell lung cancer, right (CMS/HCC); Non-small cell lung cancer, unspecified laterality (CMS/HCC); Shortness of breath 12/10/2024 Orders Only [facility] Oncology and Hematology [facility] [address] [place] [phone] Arjun Musa MD Adenocarcinoma of lung, unspecified laterality (CMS/HCC) 12/07/2024 Orders Only [facility] Oncology [facility] Hematology [facility] [address] Arjun Musa MD from Last 3 Months Family History Medical [...] Sign Reading Time Taken Comments Blood Pressure 150/101 02/01/2025 9:56 AM CDT Pulse 86 02/01/2025 9:54 AM CDT Temperature 37.2 C (98.9 F) 02/01/2025 9:54 AM CDT Respiratory Rate 15 02/01/2025 9:54 AM CDT Oxygen Saturation 95% 02/01/2025 9:54 AM CDT Inhaled Oxygen Concentration - - Weight 53.1 kg (117 lb) 02/01/2025 9:54 AM CDT Height 167.6 cm (5' 6) 04/12/2022 11:45 AM CDT Body Mass Index 18.88 04/12/2022 11:45 AM CDT Plan of Treatment Upcoming Encounters Date Type Department Care Team (Late st Contact Info) Description 03/15/2025 10:30 AM CDT Office Visit [facility] Oncology and Hematology - [place] [address] [facility] [address] [place] [address] Arjun Musa MD [address] [facility] [address] [place] [address] Health Maintenance Due Date Last Done Comments DTAP/TDAP/TD VACCINES (1 - Tdap) 1990 HEPATITIS B VACCINES (1 of 3 - 19+ 3-dose series) 1990 ZOSTER VACCINE (1 of 2) 1990 COLORECTAL SCREENING 2016 Colorectal Cancer Screening 2016 FIT-DNA Q 3 years 2016 FIT/FOBT Q 1 year 2016 Flex Sig/CT Colonography Q 5 years 2016 INFLUENZA VACCINE (#1) 2025 BREAST CANCER SCREENING 01/15/2026 01/16/20 25, 01/15/2025, 01/15/2025, Additional history exists Procedures Procedure Name Priority Date/Time Associated Diagnosis Comments COMPREHENSIVE METABOLIC PANEL Routine 02/22/2025 12:46 PM CDT BASIC METABOLIC PANEL Routine 02/22/2025 12:29 PM CDT CBC WITH AUTODIFFERENTIAL Routine 2024 12:28 PM CDT COMPREHENSIVE METABOLIC PANEL Routine 02/01/2025 12:19 PM CDT BASIC METABOLIC PANEL Routine 02/01/2025 12:09 PM CDT CBC WITH AUTODIFFERENTIAL Routine 2024 12:01 PM CDT MAMMO SCREENING BILAT Routine 01/15/2025 2:27 PM CDT BASIC METABOLIC PANEL Routine 01/11/2025 11:47 AM CDT CBC WITH AUTODIFFERENTIAL Routine 2024 11:46 AM CDT COMPREHENSIVE METABOLIC PANEL Routine 01/11/2025 10:28 AM CDT COMPREHENSIVE METABOLIC PANEL Routine 01/11/2025 10:20 AM CDT from Last 3 Months Results * COMPREHENSIVE METABOLIC PANEL (02/22/2025 12:46 PM CDT) Only the most recent of4 resultswithin the time period is included. Blood us Arjun Musa MD CHEMISTRY ORDERABLES Final Resu lt * BASIC METABOLIC PANEL (02/22/2025 12:29 PM CDT) Only the most recent of3 resultswithin the time period is included. Blood us Arjun Musa MD CHEMISTRY ORDERABLES Final Resu lt * CBC WITH AUTODIFFERENTIAL (02/22/2025 12:28 PM CDT) Only the most recent of3 resultswithin the time period is included. Blood us Arjun Musa MD HEMATOLOGY ORDERABLES Final Res ult * MAMMO SCREENING BILAT (01/15/2025 2:27 PM CDT) Anatomical Region Laterality Modality Breast Bilateral Mammography Arjun Musa MD MAMMO ORDERABLES Final Result from Last 3 Months Insurance Care Teams Workers Compensation Analyst Relationship Specialty Start Date End Date James Roach MD [address] [address] PCP - General Family Practice 09/14/21
--- OUTSIDE RECORDS SUMMARY | 2025-03-05 08:21 | XMS_ITS | Clinical Summary ---
Author Organization [facility] Address [address] [place] [address] Care Team Providers Care Taximeter Repairer Name Role Phone Alexandra Ramirez REJI-PERFORATOR OPERATOR Primary Care Provider Source Comments [facility],non-owned Affiliates and Associated Physician Practices is amultiple site organization consisting of ambulatory clinics and hospital sitesin [place], [place], [place] and [place]. This disclosure is being madepursuant to the Care Everywhere program and may not contain all information available regarding this patient. 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
--- OUTSIDE RECORDS SUMMARY | 2025-03-05 08:21 | XMS_ITS | Clinical Summary ---
Author Organization [facility] Address [address] [place] [address] Care Team Providers Care Mold Design Engineer Name Role Phone Unavailable Primary Care Provider [...] 2) 2021 COVID-19 Vaccine (2023-2 5 season) 2025 Meningococcal B Vaccine Aged Out No l onger eligible based on patient's age to complete this topic Meningococcal Vaccine Aged Out No america gibson eligible based on patient's age to complete this topic RSV Immunizations Under 20 Months Aged Out No longer eligible based on patient's age to complete this topic
--- OUTSIDE RECORDS SUMMARY | 2025-03-05 08:21 | XMS_ITS | Encounter Summary ---
Author Organization [facility] Address [address] [place] [address] Care Team Providers Care Railroad Yard Worker Name Role Phone James Roach MD Primary Care Provider [phone] Encounter Details Date Type Department Care Team (Late Contact Info) Description 03/04/2025 Orders Only [facility] Oncology and Hematology [facility] [address] [place] [address] Arjun Musa MD [address] [place] [address] Adenocarcinoma of lung, unspecified laterality (CMS/HCC) [...] Description 03/15/2025 10:30 AM CDT Office Visit [facility] Oncology and Hematology [facility] [address] [place] [address] Arjun Musa MD [address] [place] [address] documented as of this encounter Visit Diagnoses Diagnosis Adenocarcinoma of lung, unspecified laterality (CMS/HCC) documented in this encounter Care Teams Railroad Yard Worker Relationship Specialty Start Date End Date James Roach MD [address] [phone] PCP - General Family Practice 09/14/21 documented as of this encounter
== END 2025-03-05 08:05 | disposition home or self-care (01) ==
PROVIDERS: PCP Family Medicine; Visit Provider Internal Medicine Hematology & Oncology
DX: C34.90 Malignant neoplasm of unspecified part of unspecified bronchus or lung (principal); I31.39 Other pericardial effusion (noninflammatory); I71.43 Infrarenal abdominal aortic aneurysm, without rupture
CPT/HCPCS: 71260; 74177; Q9967